=== PATIENT | male | born 1965 | race Caucasian/White ===

== ENCOUNTER 2019-12-20 06:11 | Day surgery (SDC) | payer OTHER, SELFPAY ==
[2019-12-06 13:20] VITALS: BMI 34.7
--- NOTE | 2019-12-07 10:29 | HP_ITS ---
Intake Vital Signs 12/06/19 Height 5 ft 9 in 12/06/19 Weight: 242 lb 12/06/19 BMI 35.7 12/06/19 BP 138/92 H 12/06/19 Blood Pressure Location Rt brachial 12/06/19 Position Sitting 12/06/19 Respiration 18 12/06/19 Pulse 99 12/06/19 Pulse Source Monitor 12/06/19 Temp 96.1 F L 12/06/19 Temp Source Temporal 12/06/19 Pulse Oximetry (%) 96 12/06/19 Oxygen Delivery Method room air Intake Visit Reasons: Hernia Chief Complaint: Possible hernia Retail Advertising Account Executive Required: No Is patient in pain?: No Allergies No Known Allergies Allergy (Verified 12/06/19 13:19) Medications Citalopram [Celexa] 20 mg PO DAILY 03/19/13 [History Confirmed 12/06/19] diclofenac potassium 50 mg tablet 50 mg PO BID 04/14/18 [History Confirmed 12/06/19] naproxen 500 mg tablet 500 mg PO BID PRN #20 tab 04/14/18 [Rx Confirmed 12/06/19] lisinopril 20 mg-hydrochlorothiazide 25 mg tablet 1 tab PO DAILY 12/06/19 [History Confirmed 12/06/19] PFSH Medical History Iliotibial band tendonitis of left side (Acute) Arthritis (Acute) HTN (hypertension) (Chronic) Surgical History No history of previous surgery (Acute) Family History Mother Cancer Lymphoma Social History (Updated 12/07/19 @ 10:[address] Nii Robins MD) Smoking Status: Unknown if ever smoked alcohol intake: current Alcohol type: beer HPI HPI Surgical H&P: Yes HPI: MELISSA CAROLINA, is a 54 M who presents to the office today for Evaluation for a bulge at his umbilicus. Patient states that he has had this umbilical defect for many months is been gradually increasing in nature. He has had no change in his bowel or bladder habits.He cannot recall any trauma to the area. ROS General General: No weight change, appetite, fatigue, colon cancer, breast cancer or weakness HEENT HEENT: No difficulty swallowing, eye injury, eye surgery, swollen glands or hoarseness Endo Endocrine: No thyroid disease, diabetes mellitus, thyroid cancer, Hair loss, heat intolerance or cold intolerance Skin Skin: No rash or changing moles Breast Breast: No left breast lump, right breast lump, nipple discharge, breast pain, abnormal mammogram, abnormal US or breast enlargement Musc Musculoskeletal: No back problems, arthritis, rheumatoid arthritis, gout or joint pain Cardio Cardiovascular: Yes high blood pressure; no murmur, pacemaker, heart disease, atrial fibrillation, heart attack, heart stent, palpitations, shortness of breat with exertion or chest pain Psych Psychiatric: No depression, anxiety or hearing voices Resp Respiratory: No shortness of breath, No sleep apnea, No cough, No COPD, No asthma, No emphysema, No wheezing Gastro Gastrointestinal: No abdominal pain, No nausea or vomiting, No diarrhea, No constipation, No blood in stool, No acid reflux, No hemorrhoids, No ulcers, No gallbladder problem, No black,tarry stools Jake Hematologic: No blood thinners, No blood disorders, No bleeding, No anemia, No blood clots Neuro Neurologic: No system reviewed and no additional complaints, except as docu, No as per HPI, No abnormal walking, No abnormal hearing, No abnormal movements, No abnormal speech, No behavioral changes, No burning sensations, No confusion, No seizure-like activity, No unsteadiness, No dizziness, No localized weakness, No frequent falls, No headache(s), No lack of coordination, No loss of vision, No memory loss, No numbness, No other visual disturbances, No radiating pain, No restless legs, No sensory deficit, No fainting, No tingling, No tremor(s), No weakness, No other Exam Const General: no acute distress, well developed, well hydrated Orientation: oriented to person, oriented to place, oriented to time [facility] Head: normocephalic, atraumatic Ears: external ears normal Mouth: moist mucous membranes Eyes Sclera: sclerae normal Pupils: normal by confrontation Neck Neck: no lymphadenopathy noted Neck mass: No Thyroid: thyroid normal, symmetrical Chest Chest palpation & inspection: normal inspection of the chest Breast Palpation: No nipple discharge Resp Effort & Inspection: normal respiratory effort Auscultation: clear to auscultation bilaterally Percussion: percussion normal Cardio Rate: regular rate Rhythm: regular rhythm Heart Sounds: no murmurs GI Palpation: soft, no hepatosplenomegaly, no masses, tender Rectal Exam: other Other: Reducible umbilical hernia is identified. Rectal exam deferred. Extrem General: normal to inspection, no clubbing, cyanosis or edema Assessment & Plan Problems 1. Umbilical hernia without obstruction and without gangrene K42.9 Plan My plan is to perform Umbilical hernia repair With mesh. The planned surgical procedure was discussed extensively with the patient. The risks, benefits, anticipated outcomes and possible complication were mentioned. The patient understands that all hernia repair surgery has a chance of recurrence and/or chronic post-operative pain. My staff has also explained the procedure in understandable terms and the patient was given the option to take printed material concerning the planned procedure. The patient had the opportunity to ask questions concerning the planned procedure. The patient freely consents to the planned procedure. Coding Level of Care Code Off vis,new,level 3 Diagnoses Umbilical hernia without obstruction and without gangrene K42.9 COVID (Procedure Consent) Procedure Criteria Procedure Criteria: Yes Elective The surgeon/proceduralist and patient have discussed in detail the risk of exposure to and/or potential harm posed by the COVID-19 virus with having a surgery/procedure at this time versus the risk of? delaying the surgery/procedure. It is not possible to know either the risk of delaying the surgery or procedure or chance of getting an infection with perfect accuracy, but a joint decision was made between the patient and the surgeon/proceduralist ?to proceed at this time with the scheduled surgery/procedure as indicated on the consent form. 12/07/19 1029 <Electronically signed by Nii baltazar MD> Date _ Nii Robins MD I have re-examined the patient. There are no clinical changes since date of exam.
[2019-12-11 11:17] LABS: Hematocrit 45.8 % (40-54); Mean Corp Hgb Conc 32.8 g/dL (32-36); Mean Corpuscular Hgb 31.3 pg (27.0-32.0); Mean Corpuscular Volume 95.4 fL (80-94); Mean Platelet Vol. 10.7 fl (6.2-12.0); Platelet Count 173 K/mm3 (150-450); RBC Distribution Width CV 13.2 % (11.6-14.6); RBC Distribution Width SD 46.5 fl (35.1-43.9); White Blood Count 6.9 K/mm3 (4.4-11.0)
[2019-12-11 11:42] LABS: Anion Gap 4 (5-15); BUN 29 mg/dL (7-18); BUN/Creat Ratio 24.8 RATIO (10-20); Calcium,Total 9.1 mg/dL (8.5-10.1); Chloride 105 mmol/L (98-107); Creatinine, Serum 1.17 mg/dL (0.70-1.30); EST Glomerular Filtration Rate 69 mL/min (>60); Est Glom Filt Rate - Afr Amer 83 mL/min (>60); Glucose 133 mg/dL (74-106); Potassium 4.3 mmol/L (3.5-5.1); Sodium Level 138 mmol/L (136-145)
--- NOTE | 2019-12-13 08:49 | EKG12_ITS ---
Test Reason : PRE OP Blood Pressure : / mmHG Vent. Rate : 080 BPM Atrial Rate : 080 BPM P-R Int : 192 ms QRS Dur : 084 ms QT Int : 346 ms P-R-T Axes : 031 041 035 degrees QTc Int : 399 ms Normal sinus rhythm Normal ECG Confirmed by LC BAY MD ([id number]), primer expeditor and drier ELIZABETH WHEATLEY ([id number]) on 12/14/2019 11:27:25 AM Referred By: Nii Robins Confirmed By:LC BAY MD
[2019-12-20 06:35] VITALS: BP 131/97; PULSE 90; RESP 16; TEMP 36.9; O2SAT 94; BMI 35.9
[2019-12-20] MEDS: Lactated Ringers 1,000 ML 100 ML IV (06:52)
[2019-12-20] MEDS: Cefazolin 2 GM in 0.9% Normal Saline 100 ML IV (07:23)
[2019-12-20] MEDS: BUPIVACAINE LIPOSOME/PF 20 ML VIAL OPERA.SITE (07:59)
--- NOTE | 2019-12-20 08:03 | PCM.DC.POR ---
Discharge Diet: No Restrictions - Pain medication may cause nausea. You should typically eat light foods as you take your pain medication. Discharge Activity: May Shower - with the bandage in place 1-2 days after surgery. DO NOT SHOWER WHEN YOUR PORT IS ACCESSED. Additional Activity Instructions:: May not drive, work with heavy equipment, or sign legal documents for [address] if you are no longer taking narcotic pain medications. You may drive when you are no longer taking pain medications. Additional Dressing/Incision Instructions:: Leave the bandage on for 2-3 days. When you remove the bandage, leave the steri-strips intact until they fall off. Allergies/Adverse Reactions: Allergies No Known Allergies Allergy (Verified 12/20/19 06:34) Medications to take at Discharge Citalopram [Celexa] 20 mg PO DAILY 03/19/13 diclofenac potassium 50 mg tablet 50 mg PO BID 04/14/18 lisinopril 20 mg-hydrochlorothiazide 25 mg tablet 1 tab PO DAILY 12/06/19 Oxycodone HCl/Acetaminophen [Percocet 5/325] 1 - 2 tab PO Q4H PRN PRN 6 Days #30 tab 12/20/19 The following prescriptions were given: Oxycodone HCl/Acetaminophen [Percocet 5/325] 1 - 2 tab PO Q4H PRN PRN 6 Days #30 tab PRN Reason: Pain Transmission Status: Sent to [facility] Primary Care Physician: Angelo Sinclair DO [Primary Care Provider] - Test Results: Test results from this visit will be discussed in further detail at your follow-up appointment, if applicable. Please Follow Up With: Nii Robins MD - [phone] When: Please plan to follow up in 7 days in the office.
--- NOTE | 2019-12-20 08:15 | OP.PCM_ITS ---
Problem List (1) Umbilical hernia without mention of obstruction or gangrene Status: Acute Qualifiers: Obstruction and gangrene presence: without obstruction or gangrene Qualified Code(s): K42.9 - Umbilical hernia without obstruction or gangrene Report of Operation Date of Procedure: 12/20/19 Pre-Operative Diagnosis: Umbilical hernia Post-Operative Diagnosis: Same Surgery/Procedure Performed:: Umbilical hernia repair with mesh Type of Anesthesia:: General Anesthesiologist: Flako Gould Estimated Blood Loss (mL): < 25 cc Description of Procedure: Patient brought to the operating room. Placed in the supine position. Under excellent general endotracheal ovation the abdomen was sterilely prepped and draped in usual fashion. Supraumbilical incision was made. Dissection was carried down to the fascia. Umbilical defect was removed from the umbilicus. It was placed back into its preperitoneal space. I dissected the preperitoneal space 360 degrees circumferentially approximately 2 cm underneath the fascia. This was done with both blunt dissection and electrocautery initially on the fascia. I had excellent hemostasis. I placed a small ventral X hernia patch into the wound. I sutured it to the fascia with #1 Nurolon's. I injected loca l. The umbilicus was brought back down to the fascia with a 2-0 Vicryl. Deep dermal stitches of 3-0 Vicryl then a running 4-0 Monocryl. Steri-Strips were applied sterile dressings were applied and the patient tolerated the procedure well. - Admit VTE Documentation VTE Present on Admission: No VTE Mechan Device Prophylaxis: SCD's VTE Pharm Prophylaxis ordered?: No Reason prophylaxis not ordered:: Treatment Not Indicated [id number]: 05203 Rpr umbil joyce reduc > 5 yr
[2019-12-20 08:45] VITALS: BP 131/97; BP 96/74; PULSE 102; RESP 18; TEMP 36.8; O2SAT 93
[2019-12-20 09:00] VITALS: BP 131/97; BP 95/65; PULSE 97; RESP 18; O2SAT 90
[2019-12-20 09:15] VITALS: BP 101/78; BP 131/97; PULSE 97; RESP 18; O2SAT 92
[2019-12-20] MEDS: Lactated Ringers 1,000 ML 15 ML IV (09:16)
[2019-12-20 09:22] VITALS: BP 110/75; BP 131/97; PULSE 94; RESP 18; TEMP 36.8; O2SAT 92
[2019-12-20 10:10] VITALS: BP 114/77; BP 131/97; PULSE 102; RESP 16; TEMP 36.9; O2SAT 93
== END 2019-12-20 10:10 | disposition home or self-care (01) ==
LOC: SDC 06:12 → AC 06:12
PROVIDERS: Anesthesiology; PCP Family Medicine; Referring Provider Surgery; Visit Provider Surgery
PROC: (CPT 49585; principal; 2019-12-20 07:15)
DX: K42.9 Umbilical hernia without obstruction or gangrene (principal); I10 Essential (primary) hypertension
CPT/HCPCS: 00830; 49585; 36415; 80048; 85027; 87635; 93005; C9803; J7120; C1781; J2405; U0003

== ENCOUNTER → 2022-01-10 | Outpatient (CLI) | payer OTHER, SELFPAY ==
[2022-01-10 15:31] LABS: Absolute Lymphocyte Count 2.21 X10^3/uL (0.83-4.51); Basophil# 0.07 X10^3/uL; Basophil% 0.8 % (0-1); Eosinophil# 0.23 X10^3/uL; Eosinophils% 2.7 % (0-5); Hematocrit 47.2 % (40-54); Hemoglobin 16.1 g/dL (13.0-16.5); Lymphocyte # 2.21 X10^3/ul (0.83-4.51); Lymphocyte % 26.1 % (19-41); Mean Corp Hgb Conc 34.1 g/dL (32-36); Mean Corpuscular Hgb 32.4 pg (27.0-32.0); Mean Platelet Vol. 12.4 fl (6.2-12.0); Monocyte# 0.94 X10^3/uL; Monocyte% 11.1 % (0-10); NRBC Flagged by Analyzer 0 % (0-5); Neutrophil # 4.97 X10^3/uL (2.7-7.7); Neutrophil % 58.8 % (47-70); Platelet Count 201 K/mm3 (150-450); RBC Distribution Width CV 13.2 % (11.6-14.6); Red Blood Count 4.97 M/mm3 (4.6-6.2); White Blood Count 8.5 K/mm3 (4.4-11.0)
[2022-01-10 15:39] LABS: ALB/GLOB Ratio 0.8 RATIO (0.9-2.4); AST(SGOT) 21 U/L (15-37); Alanine Aminotransfer ALT/SGPT 46 U/L (16-61); Albumin, Serum 3.3 g/dL (3.2-5.0); Alkaline Phosphatase 96 U/L (45-117); Anion Gap 7 (5-15); BUN 15 mg/dL (7-18); BUN/Creat Ratio 12.8 RATIO (10-20); Calcium,Total 9.1 mg/dL (8.5-10.1); Chloride 100 mmol/L (98-107); Cholesterol 268 mg/dL (200); Creatinine, Serum 1.17 mg/dL (0.70-1.30); EST Glomerular Filtration Rate 68 mL/min (>60); Est Glom Filt Rate - Afr Amer 82 mL/min (>60); Globulin 4.4 g/dL (2.2-4.2); Glucose 178 mg/dL (74-106); High Density Lipoprotein 36 mg/dL; PSA,Total - Annual Screen 0.75 ng/mL (0.00-4.00); Potassium 4.3 mmol/L (3.5-5.1); Protein, Total 7.7 g/dL (6.4-8.2); Sodium Level 134 mmol/L (136-145); Triglycerides 343 mg/dL; Very Low Density Lipoprotein 69 mg/dL (5-40)
[2022-01-10 15:40] LABS: Hemoglobin A1c 8.2 % (3.8-5.6)
== END | disposition home or self-care (01) ==
PROVIDERS: PCP Family Medicine; Visit Provider Family Medicine
DX: Z00.00 Encounter for general adult medical examination without abnormal findings (principal); Z12.5 Encounter for screening for malignant neoplasm of prostate; R73.9 Hyperglycemia, unspecified
CPT/HCPCS: 36415; 80053; 80061; 83036; 84153; 85025; G0103

== ENCOUNTER → 2022-03-06 | Outpatient (CLI) | payer OTHER, SELFPAY | END | disposition home or self-care (01) | PROVIDERS: PCP Family Medicine; Referring Provider Family Medicine; Visit Provider Family Medicine | DX: G47.10 Hypersomnia, unspecified (principal); I10 Essential (primary) hypertension | CPT/HCPCS: 95806 ==

== ENCOUNTER → 2022-05-08 | Outpatient (CLI) | payer OTHER, SELFPAY ==
--- NOTE | 2022-05-08 13:28 | CT_ITS ---
STUDY: LOW DOSE CT LUNG CANCER SCREENING REASON FOR EXAM: Male, 56 years old. Smoker 1/2 PPD for 30 years RADIATION DOSAGE (If Supplied By Facility): CTDIvol = ( 3.18 ) mGy, DLP = ( 115.17 ) mGycm TECHNIQUE: No contrast was administered. Low dose technique was utilized (average mAS-38 and kVp 120). 1.25 mm axial source images with a slice interval of 1.25-mm were reconstructed in lung windows. 2.5 mm axial source images with a slice interval of 2.5-mm were reconstructed in lung windows. 5.0 mm axial source images with a slice interval of 5.0-mm were reconstructed in soft tissue windows. COMPARISON: None. NODULES: No suspicious nodules are seen. Emphysema: Focal increased linear marking in the anterior aspect of the medial aspect of the left upper lobe suggestive of atelectasis and/or scarring. Mild increased linear markings in the anterior aspect of the left lower lobe suggestive of scarring. Endobronchial lesion: None Aorta: Calcified atherosclerotic plaque of the aortic arch. CORONARY ARTERIES: Coronary artery calcification is seen. Heart: Small pericardial effusion. Pulmonary artery: Unremarkable Mediastinal nodes: Small mediastinal lymph nodes. Other chest and abdominal findings: CT/Low Dose CT Lung Screening IMPRESSION: Lung-RADS category 2 - Continue annual screening with LDCT in 12 months. IMPORTANT NOTES FOR USE: ACR Lung-RADS Version 1.1 Assessment Categories Release Date: 2018 Category: Coded 0-4 bases on nodule(s) with highest degree of suspicion. Negative screen is defined as categories 1 and 2; a positive screen is defined as categories 3 and 4. Category 3 and 4A nodules that are unchanged on interval CT should be coded as category 2, and individuals returned to screening in 12 months. Category 4X: Category 3 or 4 nodules with additional imaging findings that increase the suspicion of lung cancer, such as spiculation, GGN that doubles in size in 1 year, enlarged lymph notes, etc. Category Modifiers: S (significant finding unrelated to lung cancer) Electronically Signed: Teto Sow MD at 14:56 EST ,
== END | disposition home or self-care (01) ==
LOC: CT 13:27
PROVIDERS: PCP Family Medicine; Referring Provider Nurse Practitioner Acute Care; Visit Provider Nurse Practitioner Acute Care
DX: F17.210 Nicotine dependence, cigarettes, uncomplicated (principal)
CPT/HCPCS: 71271

== ENCOUNTER 2022-09-09 14:00 | Outpatient (RCR) | payer OTHER, SELFPAY ==
--- NOTE | 2022-08-14 15:12 | HP.PTEVAL ---
Patient's Visit Information MELISSA CAROLINA is a 56 year old M referred to Physical Therapy by Dr. Betito Kang MD with a diagnosis of L TKA. Date of Evaluation: 08/14/22 Physical Therapist: Arthur Nicholas, PT, ATC - Visit Plan Frequency: 2-3x /Week Duration: 4-6 Weeks Plan: L knee stretching and strengthening, core stab ex's, balance and proprio, PROM/mobs, bike, and HEP - Subjective DOS: 07/15/22. Pt notes he had a L TKA performed at that time after having L knee pain for a chronic time period. Pt reports he feels much better now since having the surgery. Pt notes he had sharp pain prior to Rx, but reports that pain is all gone. Pt deneis any tingling or numbness at this time. Pt reports no sleep difficulty at this time secondary to pain. Pt reports he is stiff after sitting for a long period of time, as well as when he wakes up in the morning. 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 Pt reports he hope to return to work soon. Pt reports a few steps into his house which he negotiates one step at a time. Pt reports his R knee will need replaced in the near future and that limits him more than the L knee at this time. Pt reports L knee pain ranges from 0-2/10. Pt reports he stayed in the hospital for one day after surgery, then had home health afterwards. - Pain L knee Pain Intensity (Out of 10): 0 Pain Intensity Range: 2 - Objective Neuro: B LE's are WNL to light touch. B patellar reflex= 2/3. Girth: B knees 40 cm. ROM: L knee 0-15-125; R knee 0-6-134. MMT: L knee flex= 29, ext= 9; R knee flex= 34, ext= 53. TU.94 - Balance/Special Test Scores WOMAC Total Score: 30 WOMAC Percentatge: 68.7500 - Goals Goal 1:: Decrease L knee pain x 50% to aid with sleep Goal Time Frame: 4-6 Weeks Goal 2:: Increase L knee ROM x 10 degrees to aid with RTW without limitation Goal Time Frame: 4-6 Weeks Goal 3:: Increase L knee strength x 20#F to aid with stair negotiation Goal Time Frame: 4-6 Weeks Goal 4:: I with HEP Goal Time Frame: 4-6 Weeks - Rehabilitation Potential Physical Therapy Diagnosis: Pt has L knee pain, weakness, and limited ROM seconday to L TKA Rehabilitation Potential: Good - Anticipated Interventions Patient/Client Instruction: Educate patient on: Condition, Plan of Care For the Purpose of:: To improve self management Therapeutic Exercise to Include: Strength training, Endurance training, Balance training, Gait and locomotor training, Passive ROM, Active ROM, Dynamic Lumbar Stabilization For the Purpose of:: To decrease pain, To increase ROM, To improve muscle performance and motor function Cryotherapy (ice pack, ice massage): Yes For the Purpose of:: To decrease pain Thank you for the opportunity to evaluate your patient. For Medicare and Medicare HMO plans, please review the plan of care and approve it. It will need to be FAXED BACK to us at [phone] for Medicare purposes. For Medicare only, by signing this I certify the plan of care. Please let me know if there are questions or concerns regarding this plan of care. Physician Signature: Date:
--- NOTE | 2022-12-11 13:50 | HP.PT.NRP ---
Patient Information Patient Information: MELISSA CAROLINA was seen in my office for initial evaluation on 08/14/22. The following Plan of Care was established for this patient: POC Established Initial Frequency: 2-3x /Week Initial Duration: 4-6 Weeks Anticipated Interventions Patient/Client Instruction: Educate patient on: Condition and Plan of Care For the Purpose of:: To improve self management Therapeutic Exercise to Include: Strength training, Endurance training, Balance training, Gait and locomotor training, Passive ROM, Active ROM and Dynamic Lumbar Stabilization For the Purpose of:: To decrease pain, To increase ROM and To improve muscle performance and motor function Cryotherapy (ice pack, ice massage): Yes For the Purpose of:: To decrease pain Last Seen Last Seen: This patient was last seen in our office . Pertinent comments regarding their Physical therapy will appear below: Pt was treated for 9 PT visits for L knee pain through the date of 09/09/22. Pt has not returned through todays date and is discontinued at this time. At this point I will be discontinuing this patient from physical therapy. I would be happy to see this patient again in the future if found appropriate by the physician. Thank you! Arthur Nicholas, PT, ATC Balance/Gait/Functional tests Balance/Special Test Scores WOMAC Total Score: 30 WOMAC Percentage: 68.7500
== END 2022-09-09 19:00 | disposition home or self-care (01) ==
LOC: PT 14:00
PROVIDERS: PCP Family Medicine; Referring Provider Orthopaedic Surgery; Visit Provider Orthopaedic Surgery
DX: M17.12 Unilateral primary osteoarthritis, left knee (principal)
CPT/HCPCS: 97110; 97161

== ENCOUNTER → 2023-02-17 | Outpatient (CLI) | payer OTHER, SELFPAY ==
[2023-02-17 18:15] LABS: Microalbumin:Creatinine Ratio 15.5 mg/g CRE (<30 mg/g CRE)
[2023-02-17 18:25] LABS: ALB/GLOB Ratio 0.9 RATIO (0.9-2.4); AST(SGOT) 22 U/L (15-37); Alanine Aminotransfer ALT/SGPT 48 U/L (16-61); Albumin, Serum 3.7 g/dL (3.2-5.0); Alkaline Phosphatase 104 U/L (45-117); Anion Gap 8 (5-15); BUN 24 mg/dL (7-18); BUN/Creat Ratio 22.2 RATIO (10-20); Calcium,Total 8.8 mg/dL (8.5-10.1); Chloride 99 mmol/L (98-107); Cholesterol 139 mg/dL (200); Creatinine, Serum 1.08 mg/dL (0.70-1.30); EST Glomerular Filtration Rate 74 mL/min (>60); Est Glom Filt Rate - Afr Amer 90 mL/min (>60); Globulin 4.3 g/dL (2.2-4.2); Glucose 122 mg/dL (74-106); High Density Lipoprotein 39 mg/dL; PSA,Total - Annual Screen 0.81 ng/mL (0.00-4.00); Potassium 3.9 mmol/L (3.5-5.1); Sodium Level 134 mmol/L (136-145); Triglycerides 175 mg/dL; Very Low Density Lipoprotein 35 mg/dL (5-40)
== END | disposition home or self-care (01) ==
LOC: BFHLAB 14:56
PROVIDERS: PCP Family Medicine; Visit Provider Family Medicine
DX: Z00.00 Encounter for general adult medical examination without abnormal findings (principal); E11.9 Type 2 diabetes mellitus without complications; Z12.5 Encounter for screening for malignant neoplasm of prostate
CPT/HCPCS: 36415; 80053; 80061; 82043; 82570; 83036; 84153; G0103

== ENCOUNTER 2024-01-21 10:00 | Outpatient (RCR) | payer OTHER, SELFPAY ==
--- NOTE | 2023-12-17 11:51 | HP.PTEVAL ---
Patient's Visit Information Visit Information Visit Information: MELISSA CAROLINA is a 58 year old M referred to Physical Therapy by BASIL Baptiste with a diagnosis of R TKA DOS: 11/24/23. Date of Evaluation: 12/17/23 Physical Therapist: Cristopher Castañeda DPT Visit Plan Frequency: 3x /Week Duration: 5 weeks Plan: R TKA DOS: 11/24/23 1) knee extension ROM progress, maintain knee flexion. B HS stretching 2) quad/glute/HS strengthening 3) scar massage as need, IASTIM (not much adherence noted) 3) functional strengthening 4) gait progression working on mechanics progressing stair negotiation. May use ice/vaso if needed for edema control. Subjective Subjective: Pt. is here today for her initial evaluation with diagnosis of R TKA DOS 11/24/23. Pt. reports overall doing well. He had home health PT for the last 2 weeks. He reports overall doing well, no N/T, no calf pain, no chest pain or blurred vision. Pt. arrives without use of AD. He reports haivng 4/10 pain in R knee today. He is still having some issues with sleeping, but is still able to sleep. 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 Pt. is off until Feb 14. Pt. reports being compliant with all of his HEp from . He did have is L knee replaced last year with good results as well. Pt. is hopeful to improve his strength and walk better in order to get back to work, play golf and complete all activities around his home without issues. Pain R knee: Pain Intensity (Out of 10): 4 Pain Intensity Range: 1 and 5 Objective Objective: POSTURE: Pt. has wide EVELYN in stance, but equal wt. shift noted. Pt. has good knee positioning no marked varus/valgus and good knee extension as well. PALPATION: Pt. great healing incision. No signs of infection or DVT noted. NEURO: Normal sensation and normal achilles DTR. Pt. is able to rise on heels and toes without issues. ROM: R knee: PROM 0-127deg, AROM 0-4-125deg. Pt. has tightness in B HS. MMT: RLE: knee: ext 14.5#, flexion 27.7#; hip: flexion 40#, abd 13.9#, SLR with slight 10deg lag. LLE: knee: ext 45.5#, flexion 41.8#, hip: flexion 45.5#, abd 23.3#. 30sec sit to stand rep test: 11 with occasional use of UEs. TU.8sec without AD. GAIT: pt. ambulates without AD. He has good TKE during stance phase, lacks knee flexion during swing. Wide EVELYN noted. STAIRS: Pt. able to complete with reciprocal pattern, but heavy use of railings. Similar with descending. Balance/Special Test Scores Lower Extremity Functional Score: 36 Goals Goal 1:: LTG: Pt. to be I with HEP for knee extension ROM and progressive strengthening. Goal Time Frame: 4-6 Weeks Goal 2:: STG: pt. to have full R knee extension allowing for increased stability with gait and functional mobility. Goal Time Frame: 2-4 Weeks Goal 3:: LTG: pt. to have symmetrical strength between BLEs without increase in symptoms. Goal Time Frame: 4-6 Weeks Goal 4:: LTG: Pt. to complete 30sec sit to stand rep test with at least 17 reps Goal 5:: LTG: Pt. to complete TUG without AD with time less than 10seconds. Goal Time Frame: 4-6 Weeks Goal 6:: LTG: Pt. to complete negotiation of 1 flight of stairs with 1 HR with reciprocal pattern and less than 2/10 pain in R knee. Goal Time Frame: 4-6 Weeks Rehabilitation Potential Physical Therapy Diagnosis: Pt. has signs and symptoms consistent with R TKA DOS: 11/24/23. Pt. has good knee flexion, but some tightness into extension. He also has marked R LE weakness and difficulty with stairs and walking. he would benefit from PT to address the above limitations progressing back to all work and recreational activities without limitations. Rehabilitation Potential: Excellent Anticipated Interventions Patient/Client Instruction: Educate patient on: Condition, Plan of Care, Risk Factors and Benefits of Fitness Program For the Purpose of:: To foster healthy habits, To improve decision making, To facilitate caregiver knowledge, To improve self management, To prevent re-injury and To improve ability to perform tasks related to life management Therapeutic Exercise to Include: Strength training, Endurance training, Balance training, Coordination, Postural training, Flexibilty training, Gait and locomotor training, Passive ROM and Active ROM For the Purpose of:: To decrease pain, To increase ROM, To improve nutrient delivery to tissue, To increase oxygenation perfusion, To improve muscle performance and motor function, To improve ability to perform ADL's, To increase tolerance to activity/condition/position, To improve gait and locomotor functions, To improve health of tissue, To decrease soft tissue restriction and To increase flexibility/ROM Manual Therapy Techniques to Include: Mobilization and Soft tissue mobilization Comment: IASTIM For the Purpose of:: To decrease pain, To increase ROM, To improve nutrient delivery to tissue, To increase oxygenation perfusion and To improve muscle performance and motor function Text: Thank you for the opportunity to evaluate your patient. For Medicare and Medicare HMO plans, please review the plan of care and approve it. It will need to be FAXED BACK to us at [phone] for Medicare purposes. For Medicare only, by signing this I certify the plan of care. Please let me know if there are questions or concerns regarding this plan of care. Physician Signature: Date:
--- NOTE | 2024-01-21 12:04 | HP.PTDCSUM_ITS ---
Discharge Summary D/C summary: It has been my pleasure to treat MELISSA CAROLINA referred by BASIL Baptiste, with the diagnosis of R TKA DOS: 11/24/23 for a total of 10 visit(s). Discharge Date: 01/21/24 Please see the following information for a summary of their discharge status. Subjective Subjective: Pt. reports overall doing well. No major issues. Pt. reports being 95% better overall. Pt. is pleased and reports being ready to be done with PT at this point in time. Pain R knee: Pain Intensity (Out of 10): 0 Overall Improvement % Improvement: 95 Objective Objective/Function: ROM: 0-0-130deg. R knee. tightness in HS bilaterally. MMT: R knee: ext 34.1#, flexion 25.9# L knee: ext 39.9#, flexion 27.7# STAIRS: Pt. is able to complete with reciprocal pattern with 1 HR without issues. Pt. does have some edema at pre patellar region, seems to be more like bursitis rather than knee edema. Pt. is overall doing well. Pt. will be DC from PT at this point in time. Goals Goal 1:: LTG: Pt. to be I with HEP for knee extension ROM and progressive strengthening. Goal Progress: Goal Met Goal 2:: STG: pt. to have full R knee extension allowing for increased stability with gait and functional mobility. Goal Progress: Goal Met Goal 3:: LTG: pt. to have symmetrical strength between BLEs without increase in symptoms. Goal Progress: Goal Met Goal 4:: LTG: Pt. to complete 30sec sit to stand rep test with at least 17 reps Goal Progress: Progressing Goal 5:: LTG: Pt. to complete TUG without AD with time less than 10seconds. Goal Progress: Goal Met Goal 6:: LTG: Pt. to complete negotiation of 1 flight of stairs with 1 HR with reciprocal pattern and less than 2/10 pain in R knee. Goal Progress: Goal Met Plan Plan: Pt.t o be DC from PT at this point in time. D/C Information d/c sentence: If there are questions or concerns regarding this patient's physical therapy, rolando seaman feel free to call me at [phone]. Thank you for the referral of this patient. Sincerely, Cristopher L Sipos, DPT Balance/Gait/Functional tests Balance/Special Test Scores Lower Extremity Functional Score: 69 TUG Test Time Seconds: 7.7 Tug Test: <10 sec.=free mobile 30 Second Chair Rise Test Seconds: 15 Improvement % Improvement: 95
== END 2024-01-21 19:00 | disposition home or self-care (01) ==
LOC: PT 10:00
PROVIDERS: PCP Family Medicine; Visit Provider Physician Assistant
DX: M17.11 Unilateral primary osteoarthritis, right knee (principal)
CPT/HCPCS: 97110; 97140; 97161; 97530

== ENCOUNTER → 2024-02-23 | Outpatient (CLI) | payer OTHER, SELFPAY ==
[2024-02-23 15:17] LABS: Absolute Lymphocyte Count 2.31 X10^3/uL (0.83-4.51); Absolute Neutrophil Count 5.5 X10^3/uL (2.0-7.7); Basophil# 0.06 X10^3/uL; Basophil% 0.7 % (0-1); Eosinophil# 0.12 X10^3/uL; Eosinophils% 1.3 % (0-5); Hematocrit 46.9 % (40-54); Hemoglobin 15.2 g/dL (13.0-16.5); Lymphocyte # 2.31 X10^3/ul (0.83-4.51); Lymphocyte % 25.2 % (19-41); Mean Corp Hgb Conc 32.4 g/dL (32-36); Mean Corpuscular Hgb 29.9 pg (27.0-32.0); Mean Corpuscular Volume 92.3 fL (80-94); Mean Platelet Vol. 11.3 fl (6.2-12.0); Monocyte# 1.11 X10^3/uL; Monocyte% 12.1 % (0-10); NRBC Flagged by Analyzer 0 % (0-5); Neutrophil # 5.53 X10^3/uL (2.7-7.7); Neutrophil % 60.3 % (47-70); Platelet Count 200 K/mm3 (150-450); RBC Distribution Width CV 13.5 % (11.6-14.6); RBC Distribution Width SD 46.1 fl (35.1-43.9); Red Blood Count 5.08 M/mm3 (4.6-6.2); White Blood Count 9.2 K/mm3 (4.4-11.0)
[2024-02-23 15:45] LABS: ALB/GLOB Ratio 0.8 RATIO (0.9-2.4); AST(SGOT) 31 U/L (15-37); Alanine Aminotransfer ALT/SGPT 49 U/L (16-61); Albumin, Serum 3.6 g/dL (3.2-5.0); Alkaline Phosphatase 102 U/L (45-117); Anion Gap 7 (5-15); BUN 15 mg/dL (7-18); Calcium,Total 9.9 mg/dL (8.5-10.1); Chloride 101 mmol/L (98-107); Cholesterol 149 mg/dL (200); Creatinine, Serum 0.94 mg/dL (0.70-1.30); EST Glomerular Filtration Rate 87 mL/min (>60); Est Glom Filt Rate - Afr Amer 106 mL/min (>60); Globulin 4.4 g/dL (2.2-4.2); Glucose 124 mg/dL (74-106); High Density Lipoprotein 47 mg/dL; PSA,Total - Annual Screen 0.81 ng/mL (0.00-4.00); Potassium 4.2 mmol/L (3.5-5.1); Sodium Level 137 mmol/L (136-145); Triglycerides 194 mg/dL; Very Low Density Lipoprotein 39 mg/dL (5-40)
[2024-02-23 16:20] LABS: Microalbumin:Creatinine Ratio 443.7 mg/g CRE (<30 mg/g CRE)
== END | disposition home or self-care (01) ==
LOC: MTLAB 12:56
PROVIDERS: PCP Family Medicine; Referring Provider Family Medicine; Visit Provider Family Medicine
DX: Z00.00 Encounter for general adult medical examination without abnormal findings (principal); E11.9 Type 2 diabetes mellitus without complications; Z12.5 Encounter for screening for malignant neoplasm of prostate
CPT/HCPCS: 36415; 80053; 80061; 82043; 82570; 83036; 84153; 85025; G0103

== ENCOUNTER → 2024-10-11 | Outpatient (CLI) | payer OTHER, SELFPAY ==
--- NOTE | 2024-10-11 15:02 | ECHOD_ITS ---
Reason For Study Reason For Study: NEW AFIB Procedure This was a 2D Doppler, Color Flow transthoracic echocardiogram. Exam performed in department. Left Ventricle Normal LV size. Moderate concentric left ventricular hypertrophy. Left ventricular systolic function is normal. The left ventricular ejection fraction is 55 %. No regional wall motion abnormalities noted. Right Ventricle Normal RV size. Normal systolic function. Atria Normal left atrium. Normal right atrium. Mitral Valve Normal mitral valve. Tricuspid Valve Normal tricuspid valve. Moderate (2+) tricuspid valve insufficiency. Pulmonary artery systolic pressure is 57 mmHg. Aortic Valve The aortic valve is not well visualized. Pulmonic Valve The pulmonic valve is not well visualized. Great Vessels Mildly dilated aortic root. The pulmonary artery is normal size. Inferior vena cava collapse with sniff. Pericardium/Pleural Moderate (1.0-2.0 cm) pericardial effusion. There are no echocardiographic indications of cardiac tamponade. Localized effusion. MMode/2D Measurements & Calculations LVIDd: 4.7 cm IVSd: 1.5 cm Ao root diam: 3.8 cm LVIDs: 3.6 cm LVPWd: 1.2 cm FS: 23.8 % LAV(MOD-bp): 51.9 ml LVAd ap4: 23.2 cm2 SV(MOD-sp4): 29.0 ml LAV(MOD-bp) Indexed: 22.1 ml/m2 LVLd ap4: 8.1 cm SI(MOD-sp4): 12.4 ml/m2 LAV(MOD-sp2): 65.0 ml EDV(MOD-sp4): 58.6 ml LAV(MOD-sp4): 39.1 ml EDV(sp4-el): 56.7 ml LVAs ap4: 15.6 cm2 LVLs ap4: 7.2 cm ESV(MOD-sp4): 29.6 ml ESV(sp4-el): 28.7 ml EF(MOD-sp4): 49.5 % EF(sp4-el): 49.4 % SV(sp4-el): 28.0 ml LA A4 area: 15.7 cm2 LA dimension(2D): 4.4 cm RA A4 area: 20.7 cm2 Doppler Measurements & Calculations Ao V2 max: 222.3 cm/sec LV V1 max: 122.9 cm/sec TR max flor: 358.2 cm/sec Ao max P.8 mmHg LV V1 max P.2 mmHg TR max P.3 mmHg Ao V2 mean: 163.4 cm/sec LV V1 mean P.8 mmHg Ao mean P.0 mmHg LV V1 mean: 91.0 cm/sec Ao V2 VTI: 37.2 cm LV V1 VTI: 19.9 cm AV (velocity ratio): 0.53 ECHO/Echo Complete Interpretation Summary Normal LV size. Left ventricular systolic function is normal. Moderate concentric left ventricular hypertrophy. The left ventricular ejection fraction is 55 %. Moderate (1.0-2.0 cm) pericardial effusion. Localized effusion. Ordering Physician: Angelo Sinclair Referring Physician: Angelo Sinclair Performed By: Nilda Arvizu RCS
--- OUTSIDE RECORDS SUMMARY | 2024-10-11 23:06 | XMS RPT_ITS | CCD ---
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 Angelo Sinclair Primary Care Provider [phone] Dr. Angelo Sinclair Referring Provider [phone] [place] [employer]SH[employer] MANAGER, RADHA Avila Attending Provider [phone] Dr. Angelo Sinclair DO Primary Care Provider Dr. Angelo Sinclair DO Referring Provider [phone] Dr. Selam Mark MD Attending Provider [phone] Selam Mark Attending Unavailable Angelo Sinclair Referring Unavailable Angelo Sinclair Primary Care Unavailable Tim Lopez Attending Unavailable Angelo Sinclair Primary Care Unavailable Angelo Sinclair Attending Unavailable Angelo Sinclair Referring Unavailable Angelo Sinclair Primary Care Unavailable Medications Current Medications Medication Drug Class(es) Dates Sig (Normalized) Sig (Original) apixaban 5 mg oral tablet (1 source) Factor Xa Inhibitor Start: 09-09-2024 take 1 tablet by mouth twice daily Apixaban (Eliquis) 5 mg tablet Active 5 mg PO TWICE A DAY September 09, 2024 12:00am citalopram 20 mg oral tablet (5 sources) Serotonin Reuptake Inhibitor Start: 03-19-2013 take 1 tablet by mouth once daily Citalopram 20 MG tablet Active 20 mg PO DAILY March 19, 2013 1:00am 24 hr dilTIAZem hydrochloride 240 mg extended release oral capsule (1 source) Calcium Channel Sanjay Start: 09-09-2024 take 1 capsule by mouth once daily in the morning, then take 1 capsule by mouth every twenty-four hours Diltiazem Hcl (Tiadylt Er) 240 mg capsule,extende d release 24 hr Active 240 mg PO EVERY MORNING September 09, 2024 12:00am hydroCHLOROthiazide 25 mg / lisinopril 20 mg oral tablet (6 sources) Thiazide Diuretic, Angiotensin Converting Enzyme Inhibitor Start: 12-06-2019 End: 09-23-2024 Lisinopril-Hydr ochlorothiazide 20-25 mg tablet Active 0.5 {tbl} PO DAILY September 23, 2024 10:34am htn Start: 12-06-2019 take 1 tablet by sam th once daily Lisinopril-Hydrochlorothiazide Active 1 TABLET PO DAILY December 05, 2019 11:00pm metFORMIN hydrochloride 1000 mg oral tablet (1 source) Biguanide Start: 09-09-2024 take 1 tablet by mouth twice daily Metformin 1,000 mg tablet Active 1000 mg PO TWICE A DAY September 09, 2024 12:00am rosuvastatin 20 mg oral capsule (1 source) HMG-CoA Reductase Inhibitor Start: 09-09-2024 Rosuvastatin 20 mg tablet Active mg PO September 09, 2024 12:00am Completed/Discontinued Medications Medication Drug Class(es) Dates Sig (Normalized) Sig (Original) acetaminophen 325 mg / oxyCODONE hydrochloride 5 mg oral tablet (5 sources) Opioid Agonist Start: 12-20-2019 End: 12-26-2019 Oxycodone-Acetamino phen 1 TABLET tablet Discontinued 1 - 2 {tbl} PO EVERY 4 HOURS NEEDED as needed for Pain 13 09December 20, 2019 December 25, 2019 12:00am December 26, 2019 12:03am Umbilical hernia Umbilical hernia without obstruction or gangrene Start: 12-20-2019 End: 12-26-2019 take 1 tablet by mouth every four hours as needed Oxycodone-Acetaminophen Discontinued 1 - 2 TABLET PO EVERY 4 HOURS NEEDED 13 09December 20, 2019 December 25, 2019 11:03pm aspirin 81 mg delayed release oral tablet (1 source) Platelet Aggregation Inhibitor, Nonsteroidal Anti-inflammatory Drug Start: 09-09-2024 End: 09-23-2024 Aspirin (Adult Low Dose Aspirin) 81 mg tablet,delayed release (DR/EC) Discontinued 81 mg PO daily September 09, 2024 12:00am September 23, 2024 10:59am clindamycin 300 mg oral capsule (5 sources) Lincosamide Antibacterial Start: 03-19-2013 End: 04-14-2018 take 1 capsule by mouth every six hours Clindamycin Hcl 300 MG capsule Discontinued 300 mg PO EVERY 6 HOURS 30 0 March 19, 2013 1:00am April 14, 2018 2:20pm diclofenac potassium 50 mg oral tablet (5 sources) Nonsteroidal Anti-inflammatory Drug Start: 04-14-2018 End: 09-09-2024 take 1 tablet by mouth twice daily Diclofenac Potassium 50 mg tablet Discontinued 50 mg PO TWICE A DAY April 14, 2018 1:00am September 09, 2024 10:00am arthritis fluconazole 50 mg oral tablet (5 sources) Azole Antifungal Start: 04-14-2018 End: 04-14-2018 take 1 tablet by mouth once daily Fluconazole (Diflucan) 50 mg tablet Discontinued 50 mg PO DAILY April 14, 2018 1:00am April 14, 2018 2:22pm hydroCHLOROthiazide 12.5 mg / telmisartan 80 mg oral tablet (5 sources) Thiazide Diuretic, Angiotensin 2 Receptor Sanjay Start: 03-19-2013 End: 12-06-2019 Telmisartan-[place] chlorothiazid 1 EACH tablet Discontinued 1 NMA PO DAILY March 19, 2013 1:00am December 06, 2019 1:20pm Start: 03-19-2013 End: 12-06-2019 Telmisartan-Hydrochlorothiaz id Discontinued 1 EACH PO DAILY March 19, 2013 12:00am December 06, 2019 12:20pm methylPREDNISolone 4 mg oral tablet (5 sources) Corticosteroid Start: 04-14-2018 End: 04-19-2018 take 1 tablet by mouth once Methylprednisolone (Medrol (Lukas)) 4 mg tablets,dose pack Discontinued 4 mg PO per package directions 21 5 0 April 14, 2018 1:00am April 18, 2018 1:00am April 19, 2018 1:09am Problems Problem Classification Problem Date Documented Da te Episodic/Chronic Abdominal hernia (5 sources) Umbilical hernia; Translations: [Umbilical hernia without obstruction or gangrene] 12-20-2019 Episodic Cardiac dysrhythmias (4 sources) Atrial flutter; Translations: [Unspecified atrial flutter] Onset: 09-23-2024 09-23-2024 Chronic Chronic obstructive pulmonary disease and bronchiectasis (2 sources) Chronic obstructive lung disease; Translations: [Chronic obstructive pulmonary disease, unspecified] 09-09-2024 Chronic Coronary atherosclerosis and other heart disease (3 sources) Coronary atherosclerosis; Translations: [Atherosclerotic heart disease of [place] coronary artery without angina pectoris] Onset: 09-23-2024 09-09-2024 Chronic Diabetes mellitus without complication (2 sources) Diabetes mellitus; Translations: [Type 2 diabetes mellitus without complications] 09-23-2024 Chronic Disorders of lipid metabolism (3 sources) Dyslipidemia; Translations: [Hyperlipidemia, unspecified] 09-23-2024 Chronic Essential hypertension (3 sources) Essential hypertension; Translations: [Essential (primary) hypertension] Onset: 09-23-2024 09-09-2024 Chronic Other connective tissue disease (5 sources) Tendinitis; Translations: [Iliotibial band syndrome, left leg] 12-06-2019 Episodic Other lower respiratory disease (2 sources) Dyspnea on exertion; Translations: [Other forms of dyspnea] 09-23-2024 Episodic Other nutritional; endocrine; and metabolic disorders (3 sources) Body mass index 30+ - obesity; Translations: [Body mass index (BMI) 38.0-38.9, adult] 04-10-2022 Chronic Other nutritional; endocrine; and metabolic disorders (1 source) Body mass index (BMI) 38.0-38.9, adult; Translations: [Body Mass Index 38.0-38.9, adult] 04-10-2022 Chronic Other nutritional; endocrine; and metabolic disorders (2 sources) Obesity; Translations: [Obesity, unspecified] 09-23-2024 Chronic Residual codes; unclassified (4 sources) Obstructive sleep apnea syndrome; Translations: [Obstructive sleep apnea (adult) (pediatric)] 04-10-2022 Chronic Comment on above: AHI noted to be 15.9 Residual codes; unclassified (2 sources) Obstructive sleep apnea (adult) (pediatric); Translations: [Obstructive sleep apnea (adult)(pediatric) ] Onset: 09-23-2024 04-10-2022 Chronic Substance-related disorders (4 sources) Cigarette smoker ; Translations: [Nicotine dependence, cigarettes, uncomplicated] 04-10-2022 Chronic Comment on above: current 1/2 PPD Results Test Name Value Interpretation Reference Range Facility Cardiology Visit Reporton Cardiology Visit Report [facility] [address] [place] [address] OFFICE VISIT Date of Service: 09/23/24 MR#: [id number] Acct: [id number] Name: MELISSA CAROLINA Rep #: [id number] : 1965 Provider: Dr. Selam Mark MD Age/Sex: 58/M Location[place] [facility] [place] Status: Signed HPI HPI History of Present Illness Details: This gentleman has a past medical history significant for COPD, nicotine dependence, obesity and hypertension. Also history of diabetes mellitus and dyslipidemia. He recently presented to his PCPs office for complaints of shortness of breath with exertion. He has had an EKG done. It showed atrial flutter with rapid ventricular response. Subsequently he was started on diltiazem and apixaban. He is here to establish cardiac care with us. Patient denies any previous history of heart disease. Denies any chest pains either at rest or with exertion. His shortness of breath with exertion has improved since starting on diltiazem but not completely resolved. Denies orthopnea or PND. No ankle edema. Per patient, he has never been checked for sleep apnea but thinks that he may have it. Denies any palpitations. No lightheadedness or dizziness. No syncope or presyncope. No history of bleeding disorders. No history of CVA or TIA. No history of frequent falls. Intake Vital Signs 04/10/22 08:23 09/23/24 10:38 Height 5 ft 9 in 5 ft 9 in Weight: 264 lb BMI 38.9 BP 105/74 Blood Pressure Location Lt brachial Position Sitting Respiration 18 Pulse 71 Pulse Source Monitor Intake Visit Reasons: Atrial fibrillation Allergies No Known Allergies Allergy (Verified 09/09/24 09:54) Medications ???Medication ???Instructions ???Recorded ???Confirmed ???Type citalopram 20 mg tablet 20 mg PO DAILY 03/19/13 09/23/24 H istory apixaban 5 mg tablet (Eliquis) 5 mg PO BID 09/09/24 09/23/24 Hist ory diltiazem HCl 240 mg capsule,24 240 mg PO QAM 09/09/24 09/23/24 Hi story hr,extended release (Tiadylt ER) metformin 1,000 mg tablet 1,000 mg PO BID 09/09/24 09/23/24 History rosuvastatin 20 mg tablet mg PO 09/09/24 09/23/24 History lisinopril 20 0.5 tab PO DAILY htn 09/23/2409/14 History mg-hydrochlorothiazi de 25 mg tablet [facility] Medical History COPD (chronic obstructive pulmonary disease) Atrial flutter Emphysema lung Coronary atherosclerosis Hypertriglyceridemia Essential hypertension Type 2 diabetes mellitus without complication Iliotibial band tendonitis of left side Arthritis Surgical History History of bilateral knee replacement History of umbilical hernia repair ( 2019) Family History Mother Cancer Lymphoma Social History Smoking Status: Current every day smoker alcohol intake: current Alcohol type: beer substance use type: does not use ROS Const Const: Negative for fatigue or weakness Eyes Eyes: Negative for change in vision ENT ENT: Negative for dizziness or balance problems Cardio Chest Pain: No Palpitations: No Edema: None Resp Respiratory: Positive for SOB with activity; Negative for SOB at rest or SOB orthopnea SOB lying down GI GI: Negative nausea or heartburn Musc Musc: Negative for balance problems Neuro Neuro: Negative for dizziness, lightheadedness, near syncope, syncope or weakness Endo Endo: Negative for fatigue Cardiology Exam Exam Narrative Comfortable. No apparent distress. Obese. Neck pain examination is difficult because of body habitus. Heart sounds 1 and 2 noted. 2/6 systolic murmur at base. Chest clear to auscultation bilaterally. Alert oriented x 3. No ankle edema. Supplemental Info Supplemental Information Labs: LDL Cholesterol 63 mg/dL (0-130) HDL Cholesterol 47 mg/dL (40-) Cholesterol 149 mg/dL (200) Triglycerides 194 mg/dL (-199) Diagnostics: Electrocardiogram Pulmonary: No Data to Display Past Visits: Cardiology Visit 09/23/24 Assessment and Plan Assessment and Plan (1) Atrial flutter: Status: Chronic Plan: ECG done in the office today shows atrial flutter with controlled ventricular response. Continue diltiazem. Continue apixaban. Risks benefits of anticoagulation discussed with the patient. He understand these and wishes to continue. His CHADS2???VASc score is 2. Check echocardiogram. Check Lexiscan stress Myoview. (2) Dyspnea on exertion: Status: Chronic Plan: Obesity. Also history of COPD. However will check echocardiogram and also check Lexiscan stress Myoview to rule out myocardial ischemia. (3) Coronary atherosclerosi (more content not included)... Normal [facility] CBC W/Diff, Automatedon 12-0 -2023 Absolute Lymph 2.31 X10 3/uL Normal 0.83-4.51 [facility] Comment on above: Performed By: #### L 501.9910, L500.4050, L502.0250, L100.0100, L500.4100, L501.9985 #### [facility] [address] [place], [address] Absolute Neut 5.5 X10 3/uL Normal 2.0-7.7 [facility] Comment on above: Performed By: #### L 501.9910, L500.4050, L502.0250, L100.0100, L500.4100, L501.9985 #### [facility] [address] [place], [address] Basophils/100 WBC (Bld) 0.7 % Normal 0-[address] [facility] Comment on above: Performed By: #### L 501.9910, L500.4050, L502.0250, L100.0100, L500.4100, L501.9985 #### [facility] [address] [place], [address] Eosinophils/100 WBC (Bld) 1.3 % Normal 0-5 [facility] Comment on above: Performed By: #### L 501.9910, L500.4050, L502.0250, L100.0100, L500.4100, L501.9985 #### [facility] [address] [place], [address] Erythrocyte distribution width (RBC) [Ratio] 13.5 % Normal 11.6-14.6 [facility] Comment on above: Performed By: #### L 501.9910, L500.4050, L502.0250, L100.0100, L500.4100, L501.9985 #### [facility] [address] [place], [address] Hematocrit (Bld) [Volume fraction] 46.9 % Normal 40-54 [facility] Comment on above: Performed By: #### L 501.9910, L500.4050, L502.0250, L100.0100, L500.4100, L501.9985 #### [facility] [address] [place], [address] Hemoglobin (Bld) [Mass/Vol] 15.2 g/dL Normal 13.0-16.5 [facility] Comment on above: Performed By: #### L 501.9910, L500.4050, L502.0250, L100.0100, L500.4100, L501.9985 #### [facility] [address] [place], [address] IG% 0.400 Normal 0.0-0.9 [facility] Comment on above: Result Comment: IG% - Immature Granulocytes (promyelocytes, myelocytes and metamyelocytes) > 1% indicates that a LEFT SHIFT is Present. Performed By: #### L 501.9910, L500.4050, L502.0250, L100.0100, L500.4100, L501.9985 #### [facility] [address] [place], [address] Lymphocytes/100 WBC (Bld) 25.2 % Normal 19-41 [facility] Comment on above: Performed By: #### L 501.9910, L500.4050, L502.0250, L100.0100, L500.4100, L501.9985 #### [facility] [address] [place], [address] MCH (RBC) [Entitic mass] 29.9 pg Normal 27.0-32.0 [facility] Comment on above: Performed By: #### L 501.9910, L500.4050, L502.0250, L100.0100, L500.4100, L501.9985 #### [facility] [address] [place], [address] MCHC (RBC) [Mass/Vol] 32.4 g/dL Normal 32-36 [facility] Comment on above: Performed By: #### L 501.9910, L500.4050, L502.0250, L100.0100, L500.4100, L501.9985 #### [facility] [address] [place], [address] MCV (RBC) [Entitic vol] 92.3 fL Normal 80-94 [facility] Comment on above: Performed By: #### L 501.9910, L500.4050, L502.0250, L100.0100, L500.4100, L501.9985 #### [facility] [address] [place], [address] Monocytes/100 WBC (Bld) 12.1 % High 0-10 [facility] Comment on above: Performed By: #### L 501.9910, L500.4050, L502.0250, L100.0100, L500.4100, L501.9985 #### [facility] [address] [place], [address] Neutrophils/100 WBC (Bld) 60.3 % Normal 47-70 [facility] Comment on above: Performed By: #### L 501.9910, L500.4050, L502.0250, L100.0100, L500.4100, L501.9985 #### [facility] [address] [place], [address] Nucleated RBC (Bld) [#/Vol] 0 10*3/uL Normal 0-5 [facility] Comment on above: Performed By: #### L 501.9910, L500.4050, L502.0250, L100.0100, L500.4100, L501.9985 #### [facility] [address] [place], [address] Platelet mean volume (Bld) [Entitic vol] 11.3 fL Normal 6.2-12.0 [facility] Comment on above: Performed By: #### L 501.9910, L500.4050, L502.0250, L100.0100, L500.4100, L501.9985 #### [facility] [address] [place], [address] Platelets (Bld) [#/Vol] 200 10*3/uL Normal 150-450 [facility] Comment on above: Performed By: #### L 501.9910, L500.4050, L502.0250, L100.0100, L500.4100, L501.9985 #### [facility] [address] [place], [address] RBC (Bld) [#/Vol] 5.08 10*6/uL Normal 4.6-6.2 [facility] Comment on above: Performed By: #### L 501.9910, L500.4050, L502.0250, L100.0100, L500.4100, L501.9985 #### [facility] [address] [place], [address] RDW SD 46.1 fl High 35.1-43.9 [facility] Comment on above: Performed By: #### L 501.9910, L500.4050, L502.0250, L100.0100, L500.4100, L501.9985 #### [facility] [address] [place], [address] WBC (Bld) [#/Vol] 9.2 10*3/uL Normal 4.4-11.0 [facility] Comment on above: Performed By: #### L 501.9910, L500.4050, L502.0250, L100.0100, L500.4100, L501.9985 #### [facility] [address] [place], [address] Comprehensive Metabolic Prof ilon 02-23-2024 Albumin [Mass/Vol] 3.6 g/dL Normal 3.2-5.0 [facility] Comment on above: Performed By: #### L 501.9910, L500.4050, L502.0250, L100.0100, L500.4100, L501.9985 #### [facility] [address] [place], [address] Albumin/Globulin [Mass ratio] 0.8 {ratio} Low 0.9-2.4 [facility] Comment on above: Performed By: #### L 501.9910, L500.4050, L502.0250, L100.0100, L500.4100, L501.9985 #### [facility] [address] [place], [address] ALK P 102 U/L Normal 45-117 [facility] Comment on above: Performed By: #### L 501.9910, L500.4050, L502.0250, L100.0100, L500.4100, L501.9985 #### [facility] [address] [place], [address] ALT [Catalytic activity/Vol] 49 U/L Normal 16-61 [facility] Comment on above: Performed By: #### L 501.9910, L500.4050, L502.0250, L100.0100, L500.4100, L501.9985 #### [facility] [address] [place], [address] AST [Catalytic activity/Vol] 31 U/L Normal 15-37 [facility] Comment on above: Performed By: #### L 501.9910, L500.4050, L502.0250, L100.0100, L500.4100, L501.9985 #### [facility] [address] [place], [address] Bilirubin [Mass/Vol] 0.50 mg/dL Normal 0.20-1.00 [place] Comment on above: Result Comment: For patients on eltrombopag therapy, use of Dimension [place] TBIL is not recommended. Performed By: #### L 501.9910, L500.4050, L502.0250, L100.0100, L500.4100, L501.9985 #### [facility] [address] [place], [address] BUN/CRE 16.0 RATIO Normal 10-20 [facility] Comment on above: Performed By: #### L 501.9910, L500.4050, L502.0250, L100.0100, L500.4100, L501.9985 #### [facility] [address] [place], [address] CA,Total 9.9 mg/dL Normal 8.5-10.1 [facility] Comment on above: Performed By: #### L 501.9910, L500.4050, L502.0250, L100.0100, L500.4100, L501.9985 #### [facility] [address] [place], [address] Chloride [Moles/Vol] 101 mmol/L Normal 98-107 [place] Comment on above: Performed By: #### L 501.9910, L500.4050, L502.0250, L100.0100, L500.4100, L501.9985 #### [facility] [address] [place], [address] CO2 [Moles/Vol] 29.0 mmol/L Normal 21.0-32.0 [facility] Comment on above: Performed By: #### L 501.9910, L500.4050, L502.0250, L100.0100, L500.4100, L501.9985 #### [facility] [address] [place], [address] Creatinine [Mass/Vol] 0.94 mg/dL Normal 0.70-1.30 [facility] Comment on above: Result Comment: The validity of the calculated GFR GFRAA in patients over 70 years has not been determined. Clinical correlation is essential. Performed By: #### L 501.9910, L500.4050, L502.0250, L100.0100, L500.4100, L501.9985 #### [facility] [address] [place], [address] EST GFR - AA 106 mL/min Normal >60 [facility] Comment on above: Result Comment: Afri can [place] GFR Calc Performed By: #### L 501.9910, L500.4050, L502.0250, L100.0100, L500.4100, L501.9985 #### [facility] [address] [place], [address] GAP 7 Normal 5-15 [facility] Comment on above: Performed By: #### L 501.9910, L500.4050, L502.0250, L100.0100, L500.4100, L501.9985 #### [facility] [address] [place], [address] GFR/1.73 sq M.predicted among non-blacks MDRD (S/P/Bld) [Vol rate/Area] 87 mL/min/{1.73_m2} Normal >60 [facility] Comment on above: Result Comment: Non- GFR Calc Performed By: #### L 501.9910, L500.4050, L502.0250, L100.0100, L500.4100, L501.9985 #### [facility] [address] [place], [address] Globulin (S) [Mass/Vol] 4.4 g/dL High 2.2-4.2 [facility] Comment on above: Performed By: #### L 501.9910, L500.4050, L502.0250, L100.0100, L500.4100, L501.9985 #### [facility] [address] [place], [address] Glucose [Mass/Vol] 124 mg/dL High 74-106 [facility] Comment on above: Result Comment: Fast ing Glucose result from 100 to 125 mg/dL suggests IMPAIRED HOMEOSTASIS per A.D.A. criteria. Performed By: #### L 501.9910, L500.4050, L502.0250, L100.0100, L500.4100, L501.9985 #### [facility] [address] [place], [address] Potassium [Moles/Vol] 4.2 mmol/L Normal 3.5-5.1 [facility] Comment on above: Performed By: #### L 501.9910, L500.4050, L502.0250, L100.0100, L500.4100, L501.9985 #### [facility] [address] [place], [address] Sodium [Moles/Vol] 137 mmol/L Normal 136-145 [facility] Comment on above: Performed By: #### L 501.9910, L500.4050, L502.0250, L100.0100, L500.4100, L501.9985 #### [facility] [address] [place], [address] T PROT 8.0 g/dL Normal 6.4-8.2 [facility] Comment on above: Performed By: #### L 501.9910, L500.4050, L502.0250, L100.0100, L500.4100, L501.9985 #### [facility] [address] [place], [address] Urea nitrogen [Mass/Vol] 15 mg/dL Normal 7-18 [facility] Comment on above: Performed By: #### L 501.9910, L500.4050, L502.0250, L100.0100, L500.4100, L501.9985 #### [facility] [address] [place], [address] Hemoglobin A1con 02-23-2024 HbA1c (Bld) [Mass fraction] 6.0 % High 3.8-5.6 [facility] Comment on above: Result Comment: Norm al < 5.7 % Prediabetic 5.7 - 6.4 % Diabetic >or= 6.5 % Please note range changes. Performed By: #### L 501.9910, L500.4050, L502.0250, L100.0100, L500.4100, L501.9985 #### [facility] [address] [place], [address] Lipid Profileon 02-23-2024 Cholesterol [Mass/Vol] 149 mg/dL Normal 200 [facility] Comment on above: Result Comment: <200 mg/dL Desirable 200-240 mg/dL Borderline >240 mg/dL High Risk Performed By: #### L 501.9910, L500.4050, L502.0250, L100.0100, L500.4100, L501.9985 #### [facility] [address] [place], [address] Cholesterol in HDL [Mass/Vol] 47 mg/dL Normal [facility] Comment on above: Result Comment: The drugs N-Acetylcysteine and Metamizole may falsely depress this assay. Reference Range HDL <40 mg/dL Low HDL Cholesterol HDL >or= 60 mg/dL High HDL Cholesterol Performed By: #### L 501.9910, L500.4050, L502.0250, L100.0100, L500.4100, L501.9985 #### [facility] [address] [place], [address] Cholesterol in LDL [Mass/Vol] 63 mg/dL Normal 0-130 [facility] Comment on above: Performed By: #### L 501.9910, L500.4050, L502.0250, L100.0100, L500.4100, L501.9985 #### [facility] [address] [place], [address] Cholesterol in VLDL [Mass/Vol] 39 mg/dL Normal 5-40 [facility] Comment on above: Performed By: #### L 501.9910, L500.4050, L502.0250, L100.0100, L500.4100, L501.9985 #### [facility] [address] [place], [address] Triglyceride [Mass/Vol] 194 mg/dL Normal [facility] Comment on above: Result Comment: The drugs N-Acetylcysteine and Metamizole may falsely depress this assay. Serum Triglycerides Reference Interval Normal <150 mg/dL Borderline high 150 - 199 mg/dL High 200 - 499 mg/dL Very High > or = 500 mg/dL Performed By: #### L 501.9910, L500.4050, L502.0250, L100.0100, L500.4100, L501.9985 #### [facility] [address] [place], [address] Microalb:Creat Ratio,Random URon 02-23-2024 Creatinine [Mass/Vol] 284.00 mg/dL Normal NO RANGE EST . [facility] Comment on above: Performed By: #### L 501.9910, L500.4050, L502.0250, L100.0100, L500.4100, L501.9985 #### [facility] [address] [place], [place], [id number] MALB:CRE 443.7 mg/g CRE High <30 mg/g CRE [facility] Comment on above: Performed By: #### L 501.9910, L500.4050, L502.0250, L100.0100, L500.4100, L501.9985 #### [facility] [address] [place], [address] MICROALBUMIN,UR 1260.0 mg/L Normal NO RANGE EST. [facility] Comment on above: Performed By: #### L 501.9910, L500.4050, L502.0250, L100.0100, L500.4100, L501.9985 #### [facility] [address] [place], [place], [id number] PSA,Total - Annual Screenon 02-23-2024 PSA,TOT SCREEN 0.81 ng/mL Normal 0.00-4.00 [facility] Comment on above: Result Comment: This test was performed using the TPSA assay method for the Tred chemistry system. Values obtained with different assay methods cannot be used interchangably. When changing PSA assays in the course of monitoring a patient, additional sequential testing should be carried out to confirm baseline values. Performed By: #### L 501.9910, L500.4050, L502.0250, L100.0100, L500.4100, L501.9985 #### [facility] [address] [place], [place], [id number] PT D/C Summary (1)on 024 PT D/C Summary (1) [facility] [address] [place] [address] / REHABILITATION SERVICES DISCHARGE SUMMARY MR#: [id number] Acct: [id number] Name: MELISSA CAROLINA Rep #: [id number] : 1965 58 From: Cristopher Castañeda DPT Referring Dr.: BASIL Baptiste Status: REG R CR Insurance: [facility] [id number] SELF PAY INSURANCE Discharge Summary D/C summary: It has been my pleasure to treat MELISSA CAROLINA referred by BASIL Baptiste, with the diagnosis of R TKA DOS: 11/24/23 for a total of 10 visit(s). Discharge Date: 01/21/24 Please see the following information for a summary of their discharge status. Subjective Subjective: Pt. reports overall doing well. No major issues. Pt. reports being 95% better overall. Pt. is pleased and reports being ready to be done with PT at this point in time. Pain R knee: Pain Intensity (Out of 10): 0 Overall Improvement % Improvement: 95 Objective Objective/Function: ROM: 0-0-130deg. R knee. tightness in HS bilaterally. MMT: R knee: ext 34.1#, flexion 25.9# L knee: ext 39.9#, flexion 27.7# STAIRS: Pt. is able to complete with reciprocal pattern with 1 HR without issues. Pt. does have some edema at pre patellar region, seems to be more like bursitis rather than knee edema. Pt. is overall doing well. Pt. will be DC from PT at this point in time. Goals Goal 1:: LTG: Pt. to be I with HEP for knee extension ROM and progressive strengthening. Goal Progress: Goal Met Goal 2:: STG: pt. to have full R knee extension allowing for increased stability with gait and functional mobility. Goal Progress: Goal Met Goal 3:: LTG: pt. to have symmetrical strength between BLEs without increase in symptoms. Goal Progress: Goal Met Goal 4:: LTG: Pt. to complete 30sec sit to stand rep test with at least 17 reps Goal Progress: Progressing Goal 5:: LTG: Pt. to complete TUG without AD with time less than 10seconds. Goal Progress: Goal Met Goal 6:: LTG: Pt. to complete negotiation of 1 flight of stairs with 1 HR with reciprocal pattern and less than 2/10 pain in R knee. Goal Progress: Goal Met Plan Plan: Pt.t o be DC from PT at this point in time. D/C Information d/c sentence: If there are questions or concerns regarding this patient's physical therapy, please feel free to call me at [phone]. Thank you for the referral of this patient. Sincerely, LEANDRA AmadoT Balance/Gait/Functio nal tests Balance/Special Test Scores Lower Extremity Functional Score: 69 TUG Test Time Seconds: 7.7 Tug Test: <10 sec.=free mobile 30 Second Chair Rise Test Seconds: 15 Improvement % Improvement: 95 01/21/24 1205 CC: BASIL Baptiste; Dr. Angelo Sinclair DO CLS Signed Normal [facility] PT D/C Summary (1) [facility] [address] [place] [address] [address] [place] [id number] / REHABILITATION SERVICES DISCHARGE SUMMARY MR#: [id number] Acct: [id number] Name: MELISSA CAROLINA Rep #: [id number] : 1965 58 From: Cristopher Castañeda DPT Referring Dr.: BASIL Baptiste Status: REG R CR Insurance: [facility] [id number] SELF PAY INSURANCE Discharge Summary D/C summary: It has been my pleasure to treat MELISSA CAROLINA referred by BASIL Baptiste, with the diagnosis of R TKA DOS: 11/24/23 for a total of 10 visit(s). Discharge Date: 01/21/24 Please see the following information for a summary of their discharge status. Subjective Subjective: Pt. reports overall doing well. No major issues. Pt. reports being 95% better overall. Pt. is pleased and reports being ready to be done with PT at this point in time. Pain R knee: Pain Intensity (Out of 10): 0 Overall Improvement % Improvement: 95 Objective Objective/Function: ROM: 0-0-130deg. R knee. tightness in HS bilaterally. MMT: R knee: ext 34.1#, flexion 25.9# L knee: ext 39.9#, flexion 27.7# STAIRS: Pt. is able to complete with reciprocal pattern with 1 HR without issues. Pt. does have some edema at pre patellar region, seems to be more like bursitis rather than knee edema. Pt. is overall doing well. Pt. will be DC from PT at this point in time. Goals Goal 1:: LTG: Pt. to be I with HEP for knee extension ROM and progressive strengthening. Goal Progress: Goal Met Goal 2:: STG: pt. to have full R knee extension allowing for increased stability with gait and functional mobility. Goal Progress: Goal Met Goal 3:: LTG: pt. to have symmetrical strength between BLEs without increase in symptoms. Goal Progress: Goal Met Goal 4:: LTG: Pt. to complete 30sec sit to stand rep test with at least 17 reps Goal Progress: Progressing Goal 5:: LTG: Pt. to complete TUG without AD with time less than 10seconds. Goal Progress: Goal Met Goal 6:: LTG: Pt. to complete negotiation of 1 flight of stairs with 1 HR with reciprocal pattern and less than 2/10 pain in R knee. Goal Progress: Goal Met Plan Plan: Pt.t o be DC from PT at this point in time. D/C Information d/c sentence: If there are questions or concerns regarding this patient's physical therapy, please feel free to call me at [phone]. Thank you for the referral of this patient. Sincerely, LEANDRA AmadoT Balance/Gait/Functio nal tests Balance/Special Test Scores Lower Extremity Functional Score: 69 TUG Test Time Seconds: 7.7 Tug Test: <10 sec.=free mobile 30 Second Chair Rise Test Seconds: 15 Improvement % Improvement: 95 01/21/24 1204 CC: BASIL Baptiste; Dr. Angelo Sinclair, CLS Signed Normal [facility] Inital Evaluation (1) - PTon 12-17-2023 Inital Evaluation (1) - PT [facility] [address] [place] [address] [address] [place] [address] / REHABILITATION SERVICES INITIAL EVALUATION MR#: [id number] Acct: [id number] Name: MELISSA CAROLINA Rep #: [id number] : 1965 58 From: Cristopher Castañeda DPT Referring Dr.: BASIL Baptiste Status: REG R CR Insurance: [facility] [id number] SELF PAY INSURANCE Patient's Visit Information Visit Information Visit Information: MELISSA CAROLINA is a 58 year old M referred to Physical Therapy by BASIL Baptiste with a diagnosis of R TKA DOS: 11/24/23. Date of Evaluation: 12/17/23 Physical Therapist: Cristopher Castañeda DPT Visit Plan Frequency: 3x /Week Duration: 5 weeks Plan: R TKA DOS: 11/24/23 1) knee extension ROM progress, maintain knee flexion. B HS stretching 2) quad/glute/HS strengthening 3) scar massage as need, IASTIM (not much adherence noted) 3) functional strengthening 4) gait progression working on mechanics progressing stair negotiation. May use ice/vaso if needed for edema control. Subjective Subjective: Pt. is here today for her initial evaluation with diagnosis of R TKA DOS 11/24/23. Pt. reports overall doing well. He had home health PT for the last 2 weeks. He reports overall doing well, no N/T, no calf pain, no chest pain or blurred vision. Pt. arrives without use of AD. He reports haivng 4/10 pain in R knee today. He is still having some issues with sleeping, but is still able to sleep. 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 Pt. is off until Feb 14. Pt. reports being compliant with all of his HEp from . He did have is L knee replaced last year with good results as well. Pt. is hopeful to improve his strength and walk better in order to get back to work, play golf and complete all activities around his home without issues. Pain R knee: Pain Intensity (Out of 10): 4 Pain Intensity Range: 1 and 5 Objective Objective: POSTURE: Pt. has wide EVELYN in stance, but equal wt. shift noted. Pt. has good knee positioning no marked varus/valgus and good knee extension as well. PALPATION: Pt. great healing incision. No signs of infection or DVT noted. NEURO: Normal sensation and normal achilles DTR. Pt. is able to rise on heels and toes without issues. ROM: R knee: PROM 0-127deg, AROM 0-4-125deg. Pt. has tightness in B HS. MMT: RLE: knee: ext 14.5#, flexion 27.7#; hip: flexion 40#, abd 13.9#, SLR with slight 10deg lag. LLE: knee: ext 45.5#, flexion 41.8#, hip: flexion 45.5#, abd 23.3#. 30sec sit to stand rep test: 11 with occasional use of UEs. TU.8sec without AD. GAIT: pt. ambulates without AD. He has good TKE during stance phase, lacks knee flexion during swing. Wide EVELYN noted. STAIRS: Pt. able to complete with reciprocal pattern, but heavy use of railings. Similar with descending. Balance/Special Test Scores Lower Extremity Functional Score: 36 Goals Goal 1:: LTG: Pt. to be I with HEP for knee extension ROM and progressive strengthening. Goal Time Frame: 4-6 Weeks Goal 2:: STG: pt. to have full R knee extension allowing for increased stability with gait and functional mobility. Goal Time Frame: 2-4 Weeks Goal 3:: LTG: pt. to have symmetrical strength between BLEs without increase in symptoms. Goal Time Frame: 4-6 Weeks Goal 4:: LTG: Pt. to complete 30sec sit to stand rep test with at least 17 reps Goal 5:: LTG: Pt. to complete TUG without AD with time less than 10seconds. Goal Time Frame: 4-6 Weeks Goal 6:: LTG: Pt. to complete negotiation of 1 flight of stairs with 1 HR with reciprocal pattern and less than 2/10 pain in R knee. Goal Time Frame: 4-6 Weeks Rehabilitation Potential Physical Therapy Diagnosis: Pt. has signs and symptoms consistent with R TKA DOS: 11/24/23. Pt. has good knee flexion, but some tightness into extension. He also has marked R LE weakness and difficul ty with stairs and walking. he would benefit from PT to address the above limitations progressing back to all work and recreational activities without limitations. Rehabilitation Potential: Excellent Anticipated Interventions Patient/Client Instruction: Educate patient on: Condition, Plan of Care, Risk Factors and Benefits of Fitness Program For the Purpose of:: To foster healthy habits, To improve decision making, To facilitate caregiver knowledge, To improve self management, To prevent re-injury and To improve ability to perform tasks related to life management Therapeutic Exercise to Include: Strength training, Endurance training, Balance training, Coordination, Postural training, Flexibilty training, Gait and locomotor training, Passive ROM and Active ROM For the Purpose of:: To decrease pain, To increase ROM, To improve nutrient delivery to tissue, To increase oxygenation perfusion, To improve muscle performance and motor function, To improve ability to perform ADL's, To i (more content not included)... Normal [facility] Basophil percentageOrdered B y: Angelo Sinclair on 02-17-2023 Bilirubin [Mass/Vol] 0.30 mg/dL 0.20-1.00 [place] Comment on above: For patients on eltr ombopag therapy, use of [employer] [place] TBIL is not recommended. Chloride [Moles/Vol] 99 mmol/L 98-107 [facility] Cholesterol [Mass/Vol] 139 mg/dL <200 [facility] Comment on above: <200 mg/dL Desirable 200-240 mg/dL Borderline >240 mg/dL High Risk Glucose [Mass/Vol] 122 mg/dL 74-106 [facility] Comment on above: Fasting Glucose resu lt from 100 to 125 mg/dL suggests IMPAIRED HOMEOSTASIS per A.D.A. criteria. Potassium [Moles/Vol] 3.9 mmol/L 3.5-5.1 [facility] Protein [Mass/Vol] 8.0 g/dL 6.4-8.2 [facility] Sodium [Moles/Vol] 134 mmol/L 136-145 [facility] Triglyceride [Mass/Vol] 175 mg/dL <[address] [facility] Comment on above: The drugs N-Acetylcy steine and Metamizole may falsely depress this assay.Serum Triglycerides Reference Interval Normal <150 mg/dL Borderline high 150 - 199 mg/dL High 200 - 499 mg/dL Very High > or = 500 mg/dL Laboratory - Chemistry and C hemistry - challengeOrdered By: Angelo Sinclair on 02-17-2023 ALP [Catalytic activity/Vol] 104 U/L 45-117 [facility] ALT [Catalytic activity/Vol] 48 U/L 16-61 [facility] CO2 [Moles/Vol] 27.0 mmol/L 21.0-32.0 [facility] Globulin (S) [Mass/Vol] 4.3 g/dL 2.2-4.[address] [facility] Urea nitrogen/Creatinine [Mass ratio] 22.2 mg/mg 10-20 [facility] No Panel InformationOrdered By: Angelo Sinclair on 02-17-2023 Estimated GFR (MDRD) Amer 90 mL/min >60 [facility] Comment on above: GFR Calc Estimated GFR (MDRD) Non-Af Amer 74 mL/min >60 [facility] Comment on above: Non- GFR Calc Prostate Specific Antigen Screen 0.81 ng/mL 0.00-4.00 [facility] Comment on above: This test was perfor med using the TPSA assay method for [employer] chemistry system. Values obtained with differentassay methods cannot be used interchangably.When changing PSA assays in the course of monitoring apatient, additional sequential testing should be carriedout to confirm baseline values. Urine Microalbumin/Creatinine Ratio 15.5 mg/g CRE <30 [facility] Serum or plasma albumin estefania urement (mass/volume)Ordered By: Angelo Sinclair on 02-17-2023 Albumin [Mass/Vol] 3.7 g/dL 3.2-5.0 [facility] Serum or plasma albumin/glob ulin mass ratioOrdered By: Angelo Sinclair on 02-17-2023 Albumin/Globulin [Mass ratio] 0.9 {ratio} 0.9-2.4 [facility] Serum or plasma calcium estefania urement (mass/volume)Ordered By: Angelo Sinclair on 02-17-2023 Calcium [Mass/Vol] 8.8 mg/dL 8.5-10.1 [facility] Serum or plasma cholesterol in HDL measurement (mass/volume)Ordered By: Angelo Sinclair on 02-17-2023 Cholesterol in HDL [Mass/Vol] 39 mg/dL >40 [facility] Comment on above: The drugs N-Acetylcy steine and Metamizole may falsely depress this assay. Reference Range HDL <40 mg/dL Low HDL Cholesterol HDL >or= 60 mg/dL High HDL Cholesterol Serum or plasma cholesterol in VLDL measurement (mass/volume)Ordered By: Angelo Sinclair on 02-17-2023 Cholesterol in VLDL [Mass/Vol] 35 mg/dL 5-40 [facility] Serum or plasma creatinine m easurement (mass/volume)Ordered By: Angelo Sinclair on 02-17-2023 Creatinine [Mass/Vol] 1.08 mg/dL 0.70-1.30 [facility] Comment on above: The validity of the calculated GFR & GFRAA in patients over 70 years has not been determined. Clinical correlation is essential. Serum or plasma low density lipoprotein (LDL) cholesterol measurement (mass/volume)Ordered By: Angelo Sinclair on 02-17-2023 Cholesterol in LDL [Mass/Vol] 65 mg/dL 0-130 [facility] Serum or plasma urea nitroge n measurement (mass/volume)Ordered By: Angelo Sinclair on 02-17-2023 Urea nitrogen [Mass/Vol] 24 mg/dL 7-18 [facility] Thin prep Papanicolaou smear with manual screeningOrdered By: Angelo Sinclair on 02-17-2023 Thin prep Papanicolaou smear with manual screening 22 U/L 15-37 [facility] Thin prep Papanicolaou smear with manual screening 8 5-15 [facility] Thin prep Papanicolaou smear with manual screening 24.0 mg/L NO RANGE EST. [facility] Urine creatinine measurement (mass/volume)Ordered By: Angelo Sinclair on 02-17-2023 Creatinine (U) [Mass/Vol] 155.00 mg/dL NO RANGE EST. [facility] Whole blood hemoglobin A1c/t otal hemoglobin ratio (mass fraction)Ordered By: Angelo Sinclair on 02-17-2023 HbA1c (Bld) [Mass fraction] 6.0 % 3.8-5.6 [facility] Comment on above: Normal < 5.7 % Predi abetic 5.7 - 6.4 % Diabetic >or= 6.5 % Please note range changes. Absolute lymphocyte counton 01-10-2022 Lymphocytes Auto (Unsp spec) [#/Vol] 2.21 10*3/uL 0.83-4.51 [facility] Work Phone: Basophil percentageon 2021 Basophils/100 WBC (Bld) 0.8 % 0-[address] [facility] Work Phone: Bilirubin [Mass/Vol] 0.40 mg/dL 0.20-1.00 [place] Work Phone: Comment on above: For patients on eltr ombopag therapy, use of [employer] [place] TBIL is not recommended. Chloride [Moles/Vol] 100 mmol/L 98-107 [place] Work Phone: Cholesterol [Mass/Vol] 268 mg/dL <200 [facility] Work Phone: Comment on above: <200 mg/dL Desirable 200-240 mg/dL Borderline >240 mg/dL High Risk Eosinophils/100 WBC (Bld) 2.7 % 0-5 [facility] Work Phone: Glucose [Mass/Vol] 178 mg/dL 74-106 [facility] Work Phone: Comment on above: Fasting Glucose resu lt greater than or equal to 126 mg/dL suggests DIABETES MELLITUS per A.D.A. criteria. Neutrophils (Bld) [#/Vol] 5.0 10*3/uL 2.0-7.7 [facility] Work Phone: Neutrophils/100 WBC (Bld) 58.8 % 47-70 [facility] Work Phone: Potassium [Moles/Vol] 4.3 mmol/L 3.5-5.1 [facility] Work Phone: Protein [Mass/Vol] 7.7 g/dL 6.4-8.2 [facility] Work Phone: Sodium [Moles/Vol] 134 mmol/L 136-145 [facility] Work Phone: Triglyceride [Mass/Vol] 343 mg/dL <[address] [facility] Work Phone: Comment on above: The drugs N-Acetylcy steine and Metamizole may falsely depress this assay.Serum Triglycerides Reference Interval Normal <150 mg/dL Borderline high 150 - 199 mg/dL High 200 - 499 mg/dL Very High > or = 500 mg/dL WBC (Bld) [#/Vol] 8.5 10*3/uL 4.4-11.0 [facility] Work Phone: Blood erythrocytes count (nu mber/volume)on 01-10-2022 RBC (Bld) [#/Vol] 4.97 10*6/uL 4.6-6.2 [facility] Work Phone: Blood hemoglobin measurement (mass/volume)on 01-10-2022 Hemoglobin (Bld) [Mass/Vol] 16.1 g/dL 13.0-16.5 [facility] Work Phone: Blood lymphocytes/100 leukoc yteson 01-10-2022 Lymphocytes/100 WBC (Bld) 26.1 % 19-41 [facility] Work Phone: Blood monocytes/100 leukocyt eson 01-10-2022 Monocytes/100 WBC (Bld) 11.1 % 0-[address] [facility] Work Phone: Blood platelet mean volumeon 01-10-2022 Platelet mean volume (Bld) [Entitic vol] 12.4 fL 6.2-12.0 [facility] Work Phone: Determination of erythrocyte mean corpuscular volume (MCV)on 01-10-2022 MCV (RBC) [Entitic vol] 95.0 fL 80-[address] [facility] Work Phone: Hematocrit Auto (Bld) [Volum e fraction]on 01-10-2022 Hematocrit (Bld) [Volume fraction] 47.2 % 40-54 [facility] Work Phone: Laboratory - Chemistry and C hemistry - challengeon 01-10-2022 ALP [Catalytic activity/Vol] 96 U/L 45-117 [facility] Work Phone: ALT [Catalytic activity/Vol] 46 U/L 16-61 [facility] Work Phone: CO2 [Moles/Vol] 27.0 mmol/L 21.0-32.0 [facility] Work Phone: Globulin (S) [Mass/Vol] 4.4 g/dL 2.2-4.[address] [facility] Work Phone: Urea nitrogen/Creatinine [Mass ratio] 12.8 mg/mg 10-20 [facility] Work Phone: Laboratory - Hematology and Cell countson 01-10-2022 Erythrocyte distribution width (RBC) [Entitic vol] 46.0 fL 35.1-43.9 [facility] Work Phone: Erythrocyte distribution width (RBC) [Ratio] 13.2 % 11.6-14.6 [facility] Work Phone: Immature granulocytes/100 WBC (Bld) 0.500 % 0.0-0.9 [facility] Work Phone: Comment on above: IG% - Immature Granu locytes (promyelocytes, myelocytes and metamyelocytes) > 1% indicates that a LEFT SHIFT is Present. MCH (RBC) [Entitic mass] 32.4 pg 27.0-32.0 [facility] Work Phone: Nucleated RBC/100 WBC (Bld) [Ratio] 0 % 0-5 [facility] Work Phone: MCHC Auto (RBC) [Mass/Vol]on 01-10-2022 MCHC (RBC) [Mass/Vol] 34.1 g/dL 32-36 [facility]: No Panel Informationon 01-10 Estimated GFR (MDRD) Amer 82 mL/min >60 [facility] Work Phone: Comment on above: GFR Calc Estimated GFR (MDRD) Non-Af Amer 68 mL/min >60 [facility] Work Phone: Comment on above: Non- GFR Calc Prostate Specific Antigen Screen 0.75 ng/mL 0.00-4.00 [facility] Work Phone: Comment on above: This test was perfor med using the TPSA assay method for the[employer] chemistry system. Values obtained with differentassay methods cannot be used interchangably.When changing PSA assays in the course of monitoring apatient, additional sequential testing should be carriedout to confirm baseline values. Platelets bldon 01-10-2022 Platelets (Bld) [#/Vol] 201 10*3/uL 150-450 [facility] Work Phone: Serum or plasma albumin estefania urement (mass/volume)on 01-10-2022 Albumin [Mass/Vol] 3.3 g/dL 3.2-5.0 [facility] Work Phone: Serum or plasma albumin/glob ulin mass ratioon 01-10-2022 Albumin/Globulin [Mass ratio] 0.8 {ratio} 0.9-2.4 [facility] Work Phone: Serum or plasma calcium estefania urement (mass/volume)on 01-10-2022 Calcium [Mass/Vol] 9.1 mg/dL 8.5-10.1 [facility] Work Phone: Serum or plasma cholesterol in HDL measurement (mass/volume)on 01-10-2022 Cholesterol in HDL [Mass/Vol] 36 mg/dL >40 [facility] Work Phone: Comment on above: The drugs N-Acetylcy steine and Metamizole may falsely depress this assay. Reference Range HDL <40 mg/dL Low HDL Cholesterol HDL >or= 60 mg/dL High HDL Cholesterol Serum or plasma cholesterol in VLDL measurement (mass/volume)on 01-10-2022 Cholesterol in VLDL [Mass/Vol] 69 mg/dL 5-40 [facility] Work Phone: Serum or plasma creatinine m easurement (mass/volume)on 01-10-2022 Creatinine [Mass/Vol] 1.17 mg/dL 0.70-1.30 [facility] Work Phone: Comment on above: The validity of the calculated GFR & GFRAA in patients over 70 years has not been determined. Clinical correlation is essential. Serum or plasma low density lipoprotein (LDL) cholesterol measurement (mass/volume)on 01-10-2022 Cholesterol in LDL [Mass/Vol] 163 mg/dL 0-130 [facility] Work Phone: Serum or plasma urea nitroge n measurement (mass/volume)on 01-10-2022 Urea nitrogen [Mass/Vol] 15 mg/dL 7-18 [facility] Work Phone: Thin prep Papanicolaou smear with manual screeningon 01-10-2022 Thin prep Papanicolaou smear with manual screening 21 U/L 15-37 [facility] Work Phone: Thin prep Papanicolaou smear with manual screening 7 5-15 [facility] Work Phone: Whole blood hemoglobin A1c/t otal hemoglobin ratio (mass fraction)on 01-10-2022 HbA1c (Bld) [Mass fraction] 8.2 % 3.8-5.6 [facility] Work Phone: Comment on above: Normal < 5.7 % Predi abetic 5.7 - 6.4 % Diabetic >or= 6.5 % Please note range changes. Vital Signs Date Time Vital Sign Value Performing Clinician Faci lity 09-23-2024 10:38-0400 Body height 175.[address] Angelo Sinclair DO Work Phone: [facility] 04-10-2022 08:23-0500 Body height 175.[address] Angelo Sinclair Work Phone: [facility] 04-10-2022 08:23-0500 Body mass index (BMI) [Ratio] 38.9 kg/m2 Dr. Angelo Sinclair Work Phone: [facility] 04-10-2022 08:23-0500 Body temperature 98.4 [degF] Dr. Angelo Sinclair Work Phone: [facility] 04-10-2022 08:23-0500 Body weight 119.[address] Angelo Sinclair Work Phone: [facility] 04-10-2022 08:23-0500 Diastolic blood pressure 94 mm[Hg] Dr. Angelo Sinclair Work Phone: [facility] 04-10-2022 08:23-0500 Diastolic blood pressure 74 mm[Hg] Dr. Angelo Sinclair DO Work Phone: [facility] 04-10-2022 08:23-0500 Heart rate 120 /min Dr. Angelo Sinclair Work Phone: [facility] 04-10-2022 08:23-0500 Heart rate 71 /min Dr. Angelo Sinclair DO Work Phone: [facility] 04-10-2022 08:23-0500 Respiratory rate 18 /min Dr. Angelo Sinclair DO Work Phone: [facility] 04-10-2022 08:23-0500 SaO2% (BldA) [Mass fraction] 96 % Dr. Angelo Sinclair Work Phone: [facility] 04-10-2022 08:23-0500 Systolic blood pressure 138 mm[Hg] Dr. Angelo Sinclair Work Phone: [facility] 04-10-2022 08:23-0500 Systolic blood pressure 105 mm[Hg] Dr. Angelo Sinclair DO Work Phone: [facility] Encounters Encounter Date Encounter Type Care Provider Facility Start: 09-23-2024 End: 09-23-[address] Selam Mark MD -[facility] Work Phone: Start: 09-23-2024 End: 09-23-[address] Angelo Sinclair DO Work Phone: -[facility] Start: 03-25-2024 Encounter for genera l adult medical [facility] Start: 02-23-2024 End: 02-23-2024 ambulatory Angelo Sinclair Facility:[facility] Start: 01-21-2024 End: 01-21-2024 ambulatory Tim Lopez Facility:[facility] Start: 02-17-2023 End: 02-17-2023 ambulatory [facility] Work Phone: Start: 02-17-2023 End: 02-17-2023 Patient encounter procedure [facility]Labor[facility], Jena Felder STEVE Start: 05-08-2022 End: 05-08-[address] Angelo Sinclair Work Phone: [facility] Work Phone: Start: 05-08-2022 End: 05-08-[address] Angelo Sinclair Work Phone: [facility]-Cat Scan, [facility] Start: 04-10-2022 End: 04-10-[address] Angelo Sinclair Work Phone: [facility]-Pulmonary Medicine [facility] Start: 03-06-2022 End: 03-06-2022 ambulatory [facility] Work Phone: Start: 03-06-2022 End: 03-06-2022 Patient encounter procedure [facility]Sleep [facility] Start: 02-21-2022 End: 02-21-2022 ambulatory [facility] Work Phone: Start: 02-21-2022 End: 02-21-2022 Patient encounter procedure [facility] Start: 01-10-2022 End: 01-10-2022 Patient encounter procedure [facility], Jena Felder [facility] Procedures Date Procedure Procedure Detail Performing Clinician Start: 05-08-[address] Angelo fleming Work Phone: Plan of Treatment Date Care Activity Detail Author Start: 09-23-2024 Evaluation of diagno stic study results [facility] Complete blood count [facility] Comprehensive metabo lic 1999 panel - Serum or Plasma [facility] Lipid 1996 panel - S mayela or Plasma [facility] NM Heart Views W str ess and W radionuclide IV [facility] Thyroid stimulating hormone measurement [facility] Immunizations Immunization Date Immunization Notes Care Provider Licha montes 04-11-2020 Covid ([facility] 03-14-2020 Covid ([facility]) [facility] 02-07-2020 influenza, injectabl e, quadrivalent, preservative free [facility] 02-07-2020 influenza, seasonal, injectable [facility] 02-08-2019 influenza, injectabl e, quadrivalent, preservative free [facility] 02-08-2019 influenza, seasonal, injectable [facility] 02-12-2018 influenza, injectabl e, quadrivalent, preservative free [facility] 02-12-2018 influenza, seasonal, injectable [facility] 02-12-2017 influenza, injectabl e, quadrivalent, preservative free [facility] 02-12-2017 influenza, seasonal, injectable [facility] 12-15-2015 influenza, injectabl e, quadrivalent, preservative free [facility] 12-15-2015 influenza, seasonal, injectable [facility] 12-15-2014 influenza, injectabl e, quadrivalent, preservative free [facility] 12-15-2014 influenza, seasonal, injectable [facility] 12-09-2013 influenza, injectabl e, quadrivalent, preservative free [facility] 12-09-2013 influenza, seasonal, [facility] 03-25-2013 Influenza virus vaccine W [facility] Payers Date Payer Category Payer Unknown [id number] 2023 Self-pay [id number] 2023 Unknown [id number] Unknown [id number] Unknown [id number] Social History Date Type Detail Facility Start: 12-27-2019 End: 04-10-2022 Tobacco smoking status AKIS Unknown if ever smoked [facility] Start: 12-10-2019 Cigarettes [facility] Start: 1965 Sex Assigned At Male W [facility] Start: 04-10-2022 Tobacco smoking stat us AKIS Smokes tobacco daily (finding) [facility] Medical Equipment Procedure Code Equipment Code Equipment Origin al Text Equipment Identifier Dates Repair, hernia, umbilical, using mesh MESH,VENTLEX ST SM 4.3CM FDA Start: 12-20-2019 Repair, hernia, umbilical, using mesh MESH,VENTLEX ST SM 4.3CM FDA Start: 12-20-2019 Repair, hernia, umbilical, using mesh MESH,VENTLEX ST SM 4.3CM FDA Start: 12-20-2019 Repair, hernia, umbilical, using mesh MESH,VENTLEX ST SM 4.3CM FDA Start: 12-20-2019 Repair, hernia, umbilical, using mesh MESH,VENTLEX ST SM 4.3CM FDA Start: 12-20-2019 Evaluation note Note Date & Type Note Facility Evaluation note No assessment information availa [facility] Work Phone: Evaluation note Note Date & Type Note Facility Evaluation note Diagnosis Onset Date BMI 38.0-38.9,adult acute TRAN (obstructive sleep apnea) acute Smoking greater than 20 pack years chronic [facility] Work Phone: Evaluation note Note Date & Type Note Facility Evaluation note Diagnosis Onset Date Resolution Coronary atherosclerosis acute September 23, 2024 10:28am Diabetes acute September 23 10:28am Dyslipidemia acute September 23 10:28am Obesity acute September 23 10:28am TRAN (obstructive sleep apnea) acute September 23, 2024 10:28am Atrial flutter chronic September 23, 2024 10:28am COPD (chronic obstructive pulmonary disease) chronic September 23 10:28am Dyspnea on exertion chronic September 23, 2024 10:28am Essential hypertension chronic 2024 10:28am [facility] Work Phone: Reason for referral (narrative) Note Date & Type Note Facility Reason for referral (narrative) No reason for referral information available [facility] Work Phone: Chief Complaint and Reason for Visit Chief Complaint HYPERSOMNIA, HTN Chief Complaint HYPERSOMNIA, HTN Sleep problems NICOTINE DEPENDENCE Reason for Visit BMI 38.0-38.9,adult TRAN (obstructive sleep apnea) Smoking greater than 20 pack years Chief Complaint Admit Date Atrial fibrillation September 23, 2024 10:2 8am Reason for Visit Admit Date Coronary atherosclerosis September 23, 2024 10:28am Diabetes September 23, 2024 10:2 8am Dyslipidemia September 23, 2024 10:2 8am Obesity September 23, 2024 10:2 8am TRAN (obstructive sleep apnea) September 23, 2024 10:28am Atrial flutter September 23, 2024 10:2 8am COPD (chronic obstructive pulmonary dise ase) September 23, 2024 10:28am Dyspnea on exertion September 23, 2024 10:2 8am Essential hypertension September 23, 2024 1 0:28am Advance Directives No Advanced Directives Records Found Advance Directive Response Recorded Date/ Time Living Will No December 10, 2019 7:19am Power of Lab Support Service Tech No November 7:19am Summary Purpose Family History No Family History Records Found Additional Source Comments Goals (unrecognized section and content) Goals may be documented in a n alternate sectionGoals may be documented in an alternate sectionGoals may be documented in an alternate sectionGoals may be documented in an alternate section Care Teams (unrecognized sec tion and content) Team Status: Active Member Role Status Dates Dr. Angelo Sinclair , DO Family Provider Active Dr. Angelo Sinclair DO Primary Care Provider Active Team Status: Inactive Member Role Status Dates Dr. Angelo Sinclair , DO Primary Care Provider, Referrin g Provider Active Margarita Grider BUSINESS BANKING RELATIONSHIP MANAGER, BUSINESS BANKING RELATIONSHIP MANAGER-C Attending Provider Active Team Status: Inactive Member Role Status Dates Dr. Angelo Sinclair , DO Primary Care Prov ider, Attending Provider, Referring Provider Active Team Status: Inactive Member Role Status Dates Dr. Angelo Sinclair DO Primary Care Provider Active Margarita Grider BUSINESS BANKING RELATIONSHIP MANAGER, BUSINESS BANKING RELATIONSHIP MANAGER-C Attending Provider, Referrin g Provider Active Team Status: Inactive Member Role Status Dates Dr. Angelo Sinclair DO Primary Care Provider, Attendin g Provider Active Team Status: Active Member Role/Relationship Status Dates Dr. Angelo Sinclair DO Primary Care Provider Active Team Status: Inactive Member Role/Relationship Status Dates Dr. Angelo Sinclair DO Primary Care Provider Active Start: September 23, 2024 End: September 23, 2024 Dr. Angelo Sinclair DO Referring Provider Active Start: September 23, 2024 End: September 23, 2024 Dr. Selam Mark MD Attending Provider Active Start: September 23, 2024 End: September 23, 2024 (unrecognized sect ion and content) No Status Records Found INFORMATION SOURCE (unrecogn ized section and content) DATE CREATED AUTHOR 09/27/2024 [facility] FOR RECORDS PERTAINING TO PATIENTS WHO ARE OR HAVE BEEN ENROLLED IN A CHEMICAL DEPENDENCY/SUBSTANCEABUSE PROGRAM, SOME INFORMATION MAY BE OMITTED. This clinical summary was aggregated from multiple sources. Caution should be exercised in using it in the provision of clinical care. This summary normalizes information from multiple sources, and as a consequence, information in this document may materially change the coding, format and clinical context of patient data. In addition, data may be omitted in some cases. CLINICAL DECISIONS SHOULD BE BASED ON THE PRIMARY CLINICAL RECORDS. [employer] provides no warranty or guarantee of the accuracy or completeness of information in this document.
== END | disposition home or self-care (01) ==
LOC: CVS 14:59
PROVIDERS: PCP Family Medicine; Referring Provider Family Medicine; Visit Provider Family Medicine
DX: I48.91 Unspecified atrial fibrillation (principal)
CPT/HCPCS: 93306

== ENCOUNTER → 2025-01-19 | Outpatient (CLI) | payer OTHER, SELFPAY ==
--- NOTE | 2025-01-19 14:38 | STRESSREP_ITS ---
Stress Test Report
--- NOTE | 2025-01-19 14:38 | STRESSREP ---
Stress Test Report Date: 01/19/2025 Procedure: Pharmacologic stress nuclear imaging study Indications: Abnormal ECG Consent: Per the patient Procedure: The patient underwent pharmacologic (Regadenoson 0.4mg ) evaluation with a peak heart rate of 95 beats per minute (59%predicted maximal heart rate) and a peak blood pressure of 116/78 mmHg. The baseline ECG demonstrated atrial flutter. The peak pharmacologic ECG did not show any ischemic changes. Baseline atrial flutter noted. There was no complaint of chest discomfort during pharmacologic infusion or recovery. The patient was injected with 14.9 millicuries of technetium 99m Cardiolite and subsequently rest SPECT Cardiolite nuclear imaging was obtained in the horizontal long, vertical long, and short axis views. The patient underwent pharmacologic (Regadenoson) evaluation. The patient was injected with 44.8 millicuries of technetium 99m Cardiolite and subsequently stress SPECT Cardiolite nuclear imaging was obtained in the horizontal long, vertical long, and short axis views. No gated images available. The examination was stopped secondary to completion of protocol. Rest and stress SPECT Cardiolite nuclear imaging status post realignment, normalization, and attenuation correction demonstrate mildly reduced perfusion of the inferior wall post pharmacological stress, suggestive of ischemia. Impression: 1. Pharmacologic (Regadenoson) evaluation 2. Peak pharmacologic ECG with no ischemic changes. 3. Baseline atrial flutter with variable conduction. 5. Mild reversible ischemia of the inferior wall. This note was generated with [employer] software. It may contain incorrect words, spelling, and punctuation that were not noted in checking the note before signing.
== END | disposition home or self-care (01) ==
LOC: CVS 06:17
PROVIDERS: PCP Family Medicine; Referring Provider Internal Medicine Cardiovascular Disease; Visit Provider Internal Medicine Cardiovascular Disease
DX: R94.31 Abnormal electrocardiogram [ECG] [EKG] (principal); I48.92 Unspecified atrial flutter; I25.10 Atherosclerotic heart disease of native coronary artery without angina pectoris
CPT/HCPCS: 78452; 93017; A9500; A4216; J2785

== ENCOUNTER → 2025-01-27 | Outpatient (CLI) | payer OTHER, SELFPAY ==
--- OUTSIDE RECORDS SUMMARY | 2025-01-27 20:07 | XMS RPT_ITS | CCD ---
Author Organization [facility] Care Team Providers Care Strategic Intelligence Officer Name Role Phone Dr. Angelo Sinclair Primary Care Provider Dr. Angelo Sinclair Referring Provider Cheo GRAVES, RADHA Avila Attending Provider Dr. Angelo Sinclair DO Primary Care Provider [phone] Dr. Angelo Sinclair DO Referring Provider Jas MOSLEY, Dr. Doss Attending Provider Dr. Angelo Sinclair DO Attending Provider Dr. Selam Mark MD Other Provider [phone] Israel MOSLEY, Dr. Marina Attending Provider Jessica MEJÍA, Tim Cuevas Unavailable NONE, NONE Unavailable Unavailable Angelo Sinclair DO Unavailable [phone] Angelo Sinclair Primary Care Unavailable Angelo Sinclair Attending Unavailable Angelo Sinclair Referring Unavailable Jas, Selam Referring Unavailable Angelo Sinclair Primary Care Unavailable JasSelam Attending Unavailable JsaSelam Consulting Unavailable Angelo Sinclair Primary Care Unavailable Angelo Sinclair Attending Unavailable Angelo Sinclair Referring Unavailable Salas Wood Attending Unavailable Angelo Sinclair Primary Care Unavailable DottieAngelo garcia Primary Care Unavailable Venus Benedict NP Attending Unavailable Jas, Selam Consulting Unavailable Angelo Sinclair Primary Care Unavailable JasSelam Attending Unavailable Jas, Selam Referring Unavailable Angelo Sinclair Primary Care Unavailable Selam Mark Attending Unavailable Angelo Sinclair Referring Unavailable Angelo Sinclair Referring Unavailable Angelo Sinclair Primary Care Unavailable Angelo Sinclair Attending Unavailable Angelo Sinclair Primary Care Unavailable Selam Mark Attending Unavailable Selam Mark Referring Unavailable Medications Current Medications Medication Drug Class(es) Dates Sig (Normalized) Sig (Original) [id number] 200 actuat albuterol 0.09 mg/actuat metered dose inhaler (1 source) beta2-Adrenergic Agonist albuterol sulfate HFA 90 mcg/actuation aerosol inhaler active Arnold Macedo [place] apixaban 5 mg oral tablet (3 sources) Factor Xa Inhibitor Start: 09-09-2024 take 1 tablet by mouth twice daily Apixaban (Eliquis) 5 mg tablet Active 5 mg PO TWICE A DAY September 09, 2024 12:00am celecoxib 100 mg oral capsule (1 source) Nonsteroidal Anti-inflammatory Drug take 1 capsule by mouth twice daily celecoxib 100 mg capsule 1 capsule by mouth twice a day active Randa Cuenca [facility] citalopram 20 mg oral tablet (7 sources) Serotonin Reuptake Inhibitor Start: 03-19-2013 take 1 tablet by mouth once daily Citalopram 20 MG tablet Active 20 mg PO DAILY March 19, 2013 1:00am 24 hr dilTIAZem hydrochloride 240 mg extended release oral capsule (3 sources) Calcium Channel Sanjay Start: 09-09-2024 take 1 capsule by mouth once daily in the morning, then take 1 capsule by mouth every twenty-four hours Diltiazem Hcl (Tiadylt Er) 240 mg capsule,extended release 24 hr Active 240 mg PO EVERY MORNING September 09, 2024 12:00am diltiazem CD 300 mg capsule,extended release 24 hr active Arnold Macedo [place] hydroCHLOROthiazide 25 mg / lisinopril 20 mg oral tablet (9 sources) Thiazide Diuretic, Angiotensin Converting Enzyme Inhibitor Start: 12-06-2019 End: 09-23-2024 Lisinopril-Hydrochlorothiazi de 20-25 mg tablet Active 0.5 {tbl} PO DAILY September 23, 2024 10:34am htn Start: 12-06-2019 take 1 tablet by sam once daily Lisinopril-Hydrochlorothiazide Active 1 TABLET PO DAILY December 05, 2019 11:00pm metFORMIN hydrochloride 1000 mg oral tablet (3 sources) Biguanide Start: 09-09-2024 take 1 tablet by mouth twice daily Metformin 1,000 mg tablet Active 1000 mg PO TWICE A DAY September 09, 2024 12:00am rosuvastatin 20 mg oral capsule (3 sources) HMG-CoA Reductase Inhibitor Start: 09-09-2024 Rosuvastatin 20 mg tablet Active mg PO September 09, 2024 12:00am take 1 tablet by mouth once sydni y rosuvastatin 20 mg tablet 1 tablet by mouth once a day active Randaraisa Cuenca [facility] Completed/Discontinued Medications Medication Drug Class(es) Dates Sig (Normalized) Sig (Original) acetaminophen 325 mg / oxyCODONE hydrochloride 5 mg oral tablet (6 sources) Opioid Agonist Start: 12-20-2019 End: 12-26-2019 [...] aspirin 81 mg delayed release oral tablet (2 sources) Platelet Aggregation Inhibitor, Nonsteroidal Anti-inflammatory Drug Start: 09-09-2024 End: 09-23-2024 Aspirin (Adult Low Dose Aspirin) 81 mg tablet,delayed release (DR/EC) Discontinued 81 mg PO daily September 09, 2024 12:00am September 23, 2024 10:59am clindamycin 300 mg oral capsule (6 sources) Lincosamide Antibacterial Start: 03-19-2013 End: 04-14-2018 take 1 capsule by mouth every six hours Clindamycin Hcl 300 MG capsule Discontinued 300 mg PO EVERY 6 HOURS 30 0 March 19, 2013 1:00am April 14, 2018 2:20pm diclofenac potassium 50 mg oral tablet (6 sources) Nonsteroidal Anti-inflammatory Drug Start: 04-14-2018 End: 09-09-2024 take 1 tablet by mouth twice daily Diclofenac Potassium 50 mg tablet Discontinued 50 mg PO TWICE A DAY April 14, 2018 1:00am September 09, 2024 10:00am arthritis fluconazole 50 mg oral tablet (6 sources) Azole Antifungal Start: 04-14-2018 End: 04-14-2018 take 1 tablet by mouth once daily Fluconazole (Diflucan) 50 mg tablet Discontinued 50 mg PO DAILY April 14, 2018 1:00am April 14, 2018 2:22pm hydroCHLOROthiazide 12.5 mg / telmisartan 80 mg oral tablet (6 sources) Thiazide Diuretic, Angiotensin 2 Receptor Sanjay Start: 03-19-2013 End: 12-06-2019 Telmisartan-[place] chlorothiazid 1 EACH tablet Discontinued 1 NMA PO DAILY March 19, 2013 1:00am December 06, 2019 1:20pm Start: 03-19-2013 End: 12-06-2019 Telmisartan-Hydrochlorothiaz id Discontinued 1 EACH PO DAILY March 19, 2013 12:00am December 06, 2019 12:20pm methylPREDNISolone 4 mg oral tablet (6 sources) Corticosteroid Start: 04-14-2018 End: 04-19-2018 take 1 tablet by mouth once Methylprednisolone (Medrol (Lukas)) 4 mg tablets,dose pack Discontinued 4 mg PO per package directions 21 5 0 April 14, 2018 1:00am April 18, 2018 1:00am April 19, 2018 1:09am Problems Problem Classification Problem Date Documented Date Episodic/Chronic Abdominal hernia (6 sources) Umbilical hernia; Translations: [Umbilical hernia without obstruction or gangrene] 12-20-2019 Episodic Cardiac dysrhythmias (7 sources) Atrial flutter; Translations: [Unspecified atrial flutter] Onset: 5 09-23-2024 Chronic Chronic obstructive pulmonary disease and bronchiectasis (4 sources) Chronic obstructive lung disease; Translations: [Chronic obstructive pulmonary disease, unspecified] 09-09-2024 Chronic Coronary atherosclerosis and other heart disease (6 sources) Coronary atherosclerosis; Translations: [Atherosclerotic heart disease of [place] coronary artery without angina pectoris] Onset: 5 09-09-2024 Chronic Diabetes mellitus without complication (4 sources) Diabetes mellitus; Translations: [Type 2 diabetes mellitus without complications] 09-23-2024 Chronic Disorders of lipid metabolism (6 sources) Dyslipidemia; Translations: [Hyperlipidemia, unspecified] 09-23-2024 Chronic Essential hypertension (5 sources) Essential hypertension; Translations: [Essential (primary) hypertension] Onset: 5 09-09-2024 Chronic Osteoarthritis (2 sources) Unilateral primary osteoarthritis, left knee; Translations: [Osteoarthrosis, localized, primary, lower leg] Onset: 3 04-16-2022 Chronic Other aftercare (1 source) Aftercare following joint replacement surgery; Translations: [Aftercare following joint replacement] Onset: 3 08-01-2022 Chronic Other connective tissue disease (1 source) Presence of right artificial knee joint; Translations: [Knee joint replacement] Onset: 4 01-01-2024 Chronic Other connective tissue disease (1 source) Presence of left artificial knee joint; Translations: [Knee joint replacement] Onset: 3 10-01-2022 Chronic Other connective tissue disease (6 sources) Tendinitis; Translations: [Iliotibial band syndrome, left leg] 12-06-2019 Episodic Other lower respiratory disease (4 sources) Dyspnea on exertion; Translations: [Other forms of dyspnea] 09-23-2024 Episodic Other nutritional; endocrine; and metabolic disorders (4 sources) Body mass index 30+ - obesity; Translations: [Body mass index (BMI) 38.0-38.9, adult] 04-10-2022 Chronic Other nutritional; endocrine; and metabolic disorders (1 source) Body mass index (BMI) 38.0-38.9, adult; Translations: [Body Mass Index 38.0-38.9, adult] 04-10-2022 Chronic Other nutritional; endocrine; and metabolic disorders (4 sources) Obesity; Translations: [Obesity, unspecified] 09-23-2024 Chronic Other screening for suspected conditions (not mental disorders or infectious disease) (1 source) Abnormal electrocardiogram [ECG] [EKG]; Translations: [Abnormal electrocardiogram [ECG] [EKG]] Onset: 5 Episodic Residual codes; unclassified (6 sources) Obstructive sleep apnea syndrome; Translations: [Obstructive sleep apnea (adult) (pediatric)] 04-10-2022 Chronic Comment on above: AHI noted to be 15.9 Residual codes; unclassified (3 sources) Obstructive sleep apnea (adult) (pediatric); Translations: [Obstructive sleep apnea (adult)(pediatric)] Onset: 04-10-2022 Chronic Substance-related disorders (5 sources) Cigarette smoker ; Translations: [Nicotine dependence, cigarettes, uncomplicated] 04-10-2022 Chronic Comment on above: current 1/2 PPD Results Test Name Value Interpretation Reference Range Facility Stress Reporton 01-19-2025 Stress Report [facility] [address] [place] [address] MR#: [id number] Acct: [id number] Name: MELISSA CAROLINA Rep #: [id number] : 1965 59 From: Selam Mark MD Primary Care: Dr. Angelo Sinclair, DO Status: REG CLI Referring Dr: Selam Mark MD Sex: M C Stress Test Report Date: 01/19/2025 Procedure: Pharmacologic stress nuclear imaging study Indications: Abnormal ECG Consent: Per the patient Procedure: The patient underwent pharmacologic (Regadenoson 0.4mg ) evaluation with a peak heart rate of 95 beats per minute (59%predicted maximal heart rate) and a peak blood pressure of 116/78 mmHg. The baseline ECG demonstrated atrial flutter. The peak pharmacologic ECG did not show any ischemic changes. Baseline atrial flutter noted. There was no complaint of chest discomfort during pharmacologic infusion or recovery. The patient was injected with 14.9 millicuries of technetium 99m Cardiolite and subsequently rest SPECT Cardiolite nuclear imaging was obtained in the horizontal long, vertical long, and short axis views. The patient underwent pharmacologic (Regadenoson) evaluation. The patient was injected with 44.8 millicuries of technetium 99m Cardiolite and subsequently stress SPECT Cardiolite nuclear imaging was obtained in the horizontal long, vertical long, and short axis views. No gated images available. The examination was stopped secondary to completion of protocol. Rest and stress SPECT Cardiolite nuclear imaging status post realignment, normalization, and attenuation correction demonstrate mildly reduced perfusion of the inferior wall post pharmacological stress, suggestive of ischemia. Impression: 1. Pharmacologic (Regadenoson) evaluation 2. Peak pharmacologic ECG with no ischemic changes. 3. Baseline atrial flutter with variable conduction. 5. Mild reversible ischemia of the inferior wall. This note was generated with [employer] dictation software. It may contain incorrect words, spelling, and punctuation that were not noted in checking the note before signing. 01/19/25 1440 Date Selam Mark MD CC: Dr. Selam Mark MD; Dr. Angelo Sinclair, Date Dictated: 01/19/251437 Date Transcribed: 01/19/251437 Metal Caster: ALBERT Signed Normal [facility] Relevant diagnostic tests/la boratory data Narrativeon 12-07-2024 Fall risk assessment no [employer] Work Phone: MEDS REVIEW Documentation of current medications (procedure) [employer] Work Phone: MEDS REVIEWD Medications reviewed without changes [employer] Work Phone: Echo Completeon 10-11-2024 Echo Complete [facility] [address] [place] [address] Echo Complete 10/11/24 1507 MR#: [id number] Acct: [id number] Name: MELISSA CAROLINA Rep #: [id number] : 1965 59 From: Salas Wood MD Attending Dr: Dr. Angelo Sinclair, Status: REG CLI Ordering Dr: Angelo Sinclair DO Date: 10/11/24 Location: [facility] Sex: M C Admitted: Reason For Study Reason For Study: NEW AFIB Procedure This was a 2D Doppler, Color Flow transthoracic echocardiogram. Exam performed in department. Left Ventricle Normal LV size. Moderate concentric left ventricular hypertrophy. Left ventricular systolic function is normal. The left ventricular ejection fraction is 55 %. No regional wall motion abnormalities noted. Right Ventricle Normal RV size. Normal systolic function. Atria Normal left atrium. Normal right atrium. Mitral Valve Normal mitral valve. Tricuspid Valve Normal tricuspid valve. Moderate (2+) tricuspid valve insufficiency. Pulmonary artery systolic pressure is 57 mmHg. Aortic Valve The aortic valve is not well visualized. Pulmonic Valve The pulmonic valve is not well visualized. Great Vessels Mildly dilated aortic root. The pulmonary artery is normal size. Inferior vena cava collapse with sniff. Pericardium/Pleural Moderate (1.0-2.0 cm) pericardial effusion. There are no echocardiographic indications of cardiac tamponade. Localized effusion. MMode/2D Measurements Calculations LVIDd: 4.7 cm IVSd: 1.5 cm Ao root diam: 3.8 cm LVIDs: 3.6 cm LVPWd: 1.2 cm FS: 23.8 % LAV(MOD-bp): 51.9 ml LVAd ap4: 23.2 cm2 SV(MOD-sp4): 29.0 ml LAV(MOD-bp) Indexed: 22.1 ml/m2 LVLd ap4: 8.1 cm SI(MOD-sp4): 12.4 ml/m2 LAV(MOD-sp2): 65.0 ml EDV(MOD-sp4): 58.6 ml LAV(MOD-sp4): 39.1 ml EDV(sp4-el): 56.7 ml LVAs ap4: 15.6 cm2 LVLs ap4: 7.2 cm ESV(MOD-sp4): 29.6 ml ESV(sp4-el): 28.7 ml EF(MOD-sp4): 49.5 % EF(sp4-el): 49.4 % SV(sp4-el): 28.0 ml LA A4 area: 15.7 cm2 LA dimension(2D): 4.4 cm RA A4 area: 20.7 cm2 Doppler Measurements Calculations Ao V2 max: 222.3 cm/sec LV V1 max: 122.9 cm/sec TR max flor: 358.2 cm/sec Ao max P.8 mmHg LV V1 max P.2 mmHg TR max P.3 mmHg Ao V2 mean: 163.4 cm/sec LV V1 mean P.8 mmHg Ao mean P.0 mmHg LV V1 mean: 91.0 cm/sec Ao V2 VTI: 37.2 cm LV V1 VTI: 19.9 cm AV (velocity ratio): 0.53 ECHO/Echo Complete Interpretation Summary Normal LV size. Left ventricular systolic function is normal. Moderate concentric left ventricular hypertrophy. The left ventricular ejection fraction is 55 %. Moderate (1.0-2.0 cm) pericardial effusion. Localized effusion. Ordering Physician: Angelo Sinclair Referring Physician: Angelo Sinclair Performed By: Nilda Arvizu RCS 10/11/24 1604 Date Salas Wood MD CC: Dr. Angelo Sinclair, DO Date Dictated: 10/11/24 1507 Date Transcribed: 10/11/24 1604 Metal Caster: Signed Normal [facility] Echocardiogram study reportO rdered By: Salas Wood on 10-11-2024 Study report [facility] [place] [place] [address] Echo Complete 10/11/24 1507 MR#: [id number] Acct: [id number] Name: MELISSA CAROLINA Rep #:[id number] : 1965 59 From: Salas Bautista Attending Dr: Dr. Angelo Sinclair, DO Status: REG CLI Ordering Dr: Angelo Sinclair DO Date: 10/11/24 Location: [facility] Sex: M C Admitted: Reason For Study Reason For Study: NEW AFIB Procedure This was a 2D Doppler, Color Flow transthoracic echocardiogram. Exam performed in department. Left Ventricle Normal LV size. Moderate concentric left ventricular hypertrophy. Left ventricular systolic function is normal. The left ventricular ejection fraction is 55 %. No regional wall motion abnormalities noted. Right Ventricle Normal RV size. Normal systolic function. Atria Normal left atrium. Normal right atrium. Mitral Valve Normal mitral valve. Tricuspid Valve Normal tricuspid valve. Moderate (2+) tricuspid valve insufficiency. Pulmonary artery systolic pressure is 57 mmHg. Aortic Valve The aortic valve is not well visualized. Pulmonic Valve The pulmonic valve is not well visualized. Great Vessels Mildly dilated aortic root. The pulmonary artery is normal size. Inferior vena cava collapse with sniff. Pericardium/Pleural Moderate (1.0-2.0 cm) pericardial effusion. There are no echocardiographic indications of cardiac tamponade. Localized effusion. MMode/2D Measurements & Calculations LVIDd: 4.7 cm IVSd: 1.5 cm Ao root diam: 3.8 cm LVIDs: 3.6 cm LVPWd: 1.2 cm FS: 23.8 % LAV(MOD-bp): 51.9 ml LVAd ap4: 23.2 cm2 SV(MOD-sp4): 29.0 ml LAV(MOD-bp) Indexed: 22.1 ml/m2 LVLd ap4: 8.1 cm SI(MOD-sp4): 12.4 ml/m2 LAV(MOD-sp2): 65.0 ml EDV(MOD-sp4): 58.6 ml LAV(MOD-sp4): 39.1 ml EDV(sp4-el): 56.7 ml LVAs ap4: 15.6 cm2 LVLs ap4: 7.2 cm ESV(MOD-sp4): 29.6 ml ESV(sp4-el): 28.7 ml EF(MOD-sp4): 49.5 % EF(sp4-el): 49.4 % SV(sp4-el): 28.0 ml LA A4 area: 15.7 cm2 LA dimension(2D): 4.4 cm RA A4 area: 20.7 cm2 Doppler Measurements & Calculations Ao V2 max: 222.3 cm/sec LV V1 max: 122.9 cm/sec TR max flor: 358.2 cm/sec Ao max P.8 mmHg LV V1 max P.2 mmHg TR max P.3 mmHg Ao V2 mean: 163.4 cm/sec LV V1 mean P.8 mmHg Ao mean P.0 mmHg LV V1 mean: 91.0 cm/sec Ao V2 VTI: 37.2 cm LV V1 VTI: 19.9 cm AV (velocity ratio): 0.53 ECHO/Echo Complete Interpretation Summary Normal LV size. Left ventricular systolic function is normal. Moderate concentric left ventricular hypertrophy. The left ventricular ejection fraction is 55 %. Moderate (1.0-2.0 cm) pericardial effusion. Localized effusion. Ordering Physician: Angelo Sinclair Referring Physician: Angelo Sinclair Performed By: Nilda Arvizu RCS 10/11/24 1604 Date _ Salas Wood MD CC: DO Kelby Rodriguez Date Dictated: 10/11/24 1507 Date Transcribed: 10/11/24 1604 Metal Caster: Signed [facility] Work Phone: Cardiology Visit Reporton Cardiology Visit Report [facility] [address] [place] [address] OFFICE VISIT Date of Service: 09/23/24 MR#: [id number] Acct: [id number] Name: MELISSA CAROLINA Rep #: [id number] : 1965 Provider: Dr. Selam Mark MD Age/Sex: 58/M Location: [facility] Status: Signed HPI HPI History [...] 0.5 tab PO DAILY htn 09/23/2409/14 History mg-hydrochlorothiazid e 25 mg tablet PFS Medical History COPD (chronic obstructive pulmonary disease) [...] Coronary atherosclerosi (more content not included)... Normal [facility] CBC W/Diff, Automatedon 12-0 Absolute Lymph 2.31 X10 3/uL Normal 0.83-4.51 [facility] Comment on above: Performed By: #### L 501.9910, L500.4050, L502.0250, L100.0100, L500.4100, L501.9985 #### [facility] [address] [place], [address] Absolute Neut 5.5 X10 3/uL Normal 2.0-7.7 [facility] Comment on above: Performed By: #### L 501.9910, L500.4050, L502.0250, L100.0100, L500.4100, L501.9985 #### [facility] [address] [place], [address] Basophils/100 WBC (Bld) 0.7 % Normal 0-1 [facility] Comment on above: Performed By: #### L 501.9910, L500.4050, L502.0250, L100.0100, L500.4100, L501.9985 #### [facility] [address] [place], [address] Eosinophils/100 WBC (Bld) 1.3 % Normal 0-5 [facility] Comment on above: Performed By: #### L 501.9910, L500.4050, L502.0250, L100.0100, L500.4100, L501.9985 #### [facility] [address] [place], [address] Erythrocyte distribution width (RBC) [Ratio] 13.5 % Normal 11.6-14.6 [facility] Comment on above: Performed By: #### L 501.9910, L500.4050, L502.0250, L100.0100, L500.4100, L501.9985 #### [facility] [address] [place], [address] Hematocrit (Bld) [Volume fraction] 46.9 % Normal 40-54 [facility] Comment on above: Performed By: #### L 501.9910, L500.4050, L502.0250, L100.0100, L500.4100, L501.9985 #### [facility] [address] [place], [address] Hemoglobin (Bld) [Mass/Vol] 15.2 g/dL Normal 13.0-16.5 [facility] Comment on above: Performed By: #### L 501.9910, L500.4050, L502.0250, L100.0100, L500.4100, L501.9985 #### [facility] [address] [place], [address] IG% 0.400 Normal 0.0-0.9 [facility] Comment on above: Result Comment: IG% - Immature Granulocytes (promyelocytes, myelocytes and metamyelocytes) > 1% indicates that a LEFT SHIFT is Present. Performed By: #### L 501.9910, L500.4050, L502.0250, L100.0100, L500.4100, L501.9985 #### [facility] [address] [facility] [place], [address] Lymphocytes/100 WBC (Bld) 25.2 % Normal 19-41 [facility] Comment on above: Performed By: #### L 501.9910, L500.4050, L502.0250, L100.0100, L500.4100, L501.9985 #### [facility] [address] [place], [address] MCH (RBC) [Entitic mass] 29.9 pg Normal 27.0-32.0 [facility] Comment on above: Performed By: #### L 501.9910, L500.4050, L502.0250, L100.0100, L500.4100, L501.9985 #### [facility] [address] [place], [address] MCHC (RBC) [Mass/Vol] 32.4 g/dL Normal 32-36 [facility] Comment on above: Performed By: #### L 501.9910, L500.4050, L502.0250, L100.0100, L500.4100, L501.9985 #### [facility] [address] [place] [place], [address] MCV (RBC) [Entitic vol] 92.3 fL Normal 80-94 [facility] Comment on above: Performed By: #### L 501.9910, L500.4050, L502.0250, L100.0100, L500.4100, L501.9985 #### [facility] [address] [place], [address] Monocytes/100 WBC (Bld) 12.1 % High 0-10 [facility] Comment on above: Performed By: #### L 501.9910, L500.4050, L502.0250, L100.0100, L500.4100, L501.9985 #### [facility] [address] [place], [address] Neutrophils/100 WBC (Bld) 60.3 % Normal 47-70 [facility] Comment on above: Performed By: #### L 501.9910, L500.4050, L502.0250, L100.0100, L500.4100, L501.9985 #### [facility] [address] [place], [address] Nucleated RBC (Bld) [#/Vol] 0 10*3/uL Normal 0-5 [facility] Comment on above: Performed By: #### L 501.9910, L500.4050, L502.0250, L100.0100, L500.4100, L501.9985 #### [facility] [address] [place], [address] Platelet mean volume (Bld) [Entitic vol] 11.3 fL Normal 6.2-12.0 [facility] Comment on above: Performed By: #### L 501.9910, L500.4050, L502.0250, L100.0100, L500.4100, L501.9985 #### [facility] [address] [place], [address] Platelets (Bld) [#/Vol] 200 10*3/uL Normal 150-450 [facility] Comment on above: Performed By: #### L 501.9910, L500.4050, L502.0250, L100.0100, L500.4100, L501.9985 #### [facility] [address] [facility] [place], [address] RBC (Bld) [#/Vol] 5.08 10*6/uL Normal 4.6-6.2 [facility] Comment on above: Performed By: #### L 501.9910, L500.4050, L502.0250, L100.0100, L500.4100, L501.9985 #### [facility] [address] [place], [address] RDW SD 46.1 fl High 35.1-43.9 [facility] Comment on above: Performed By: #### L 501.9910, L500.4050, L502.0250, L100.0100, L500.4100, L501.9985 #### [facility] [address] [place], [address] WBC (Bld) [#/Vol] 9.2 10*3/uL Normal 4.4-11.0 [facility] Comment on above: Performed By: #### L 501.9910, L500.4050, L502.0250, L100.0100, L500.4100, L501.9985 #### [facility] [address] [place], [address] Comprehensive Metabolic Prof ilon 02-23-2024 Albumin [Mass/Vol] 3.6 g/dL Normal 3.2-5.0 [facility] Comment on above: Performed By: #### L 501.9910, L500.4050, L502.0250, L100.0100, L500.4100, L501.9985 #### [facility] [address] [place], [address] Albumin/Globulin [Mass ratio] 0.8 {ratio} Low 0.9-2.4 [facility] Comment on above: Performed By: #### L 501.9910, L500.4050, L502.0250, L100.0100, L500.4100, L501.9985 #### [facility] [address] [place], [address] ALK P 102 U/L Normal 45-117 [facility] Comment on above: Performed By: #### L 501.9910, L500.4050, L502.0250, L100.0100, L500.4100, L501.9985 #### [facility] [address] [place], [address] ALT [Catalytic activity/Vol] 49 U/L Normal 16-61 [facility] Comment on above: Performed By: #### L 501.9910, L500.4050, L502.0250, L100.0100, L500.4100, L501.9985 #### [facility] [address] [place], [address] AST [Catalytic activity/Vol] 31 U/L Normal 15-37 [facility] Comment on above: Performed By: #### L 501.9910, L500.4050, L502.0250, L100.0100, L500.4100, L501.9985 #### [facility] [address] [place], [address] Bilirubin [Mass/Vol] 0.50 mg/dL Normal 0.20-1.00 [facility] Comment on above: Result Comment: For patients on eltrombopag therapy, use of Dimension [place] TBIL is not recommended. Performed By: #### L 501.9910, L500.4050, L502.0250, L100.0100, L500.4100, L501.9985 #### [facility] [address] [place], [address] BUN/CRE 16.0 RATIO Normal 10-20 [facility] Comment on above: Performed By: #### L 501.9910, L500.4050, L502.0250, L100.0100, L500.4100, L501.9985 #### [facility] [address] [place], [address] CA,Total 9.9 mg/dL Normal 8.5-10.1 [facility] Comment on above: Performed By: #### L 501.9910, L500.4050, L502.0250, L100.0100, L500.4100, L501.9985 #### [facility] [address] [place], [address] Chloride [Moles/Vol] 101 mmol/L Normal 98-107 [facility] Comment on above: Performed By: #### L 501.9910, L500.4050, L502.0250, L100.0100, L500.4100, L501.9985 #### [facility] [address] [place], [address] CO2 [Moles/Vol] 29.0 mmol/L Normal 21.0-32.0 [facility] Comment on above: Performed By: #### L 501.9910, L500.4050, L502.0250, L100.0100, L500.4100, L501.9985 #### [facility] [address] [place], [address] Creatinine [Mass/Vol] 0.94 mg/dL Normal 0.70-1.30 [facility] Comment on above: Result Comment: The validity of the calculated GFR GFRAA in patients over 70 years has not been determined. Clinical correlation is essential. Performed By: #### L 501.9910, L500.4050, L502.0250, L100.0100, L500.4100, L501.9985 #### [facility] [address] [place], [address] EST GFR - AA 106 mL/min Normal >60 [facility] Comment on above: Result Comment: Afri can Nigerian GFR Calc Performed By: #### L 501.9910, L500.4050, L502.0250, L100.0100, L500.4100, L501.9985 #### [facility] [address] [place], [address] GAP 7 Normal 5-15 [facility] Comment on above: Performed By: #### L 501.9910, L500.4050, L502.0250, L100.0100, L500.4100, L501.9985 #### [facility] [address] [place], [address] GFR/1.73 sq M.predicted among non-blacks MDRD (S/P/Bld) [Vol rate/Area] 87 mL/min/{1.73_m2} Normal >60 [facility] Comment on above: Result Comment: Non- GFR Calc Performed By: #### L 501.9910, L500.4050, L502.0250, L100.0100, L500.4100, L501.9985 #### [facility] [address] [place], [address] Globulin (S) [Mass/Vol] 4.4 g/dL High 2.2-4.2 [facility] Comment on above: Performed By: #### L 501.9910, L500.4050, L502.0250, L100.0100, L500.4100, L501.9985 #### [facility] [address] [place], [address] Glucose [Mass/Vol] 124 mg/dL High 74-106 [facility] Comment on above: Result Comment: Fast ing Glucose result from 100 to 125 mg/dL suggests IMPAIRED HOMEOSTASIS per A.D.A. criteria. Performed By: #### L 501.9910, L500.4050, L502.0250, L100.0100, L500.4100, L501.9985 #### [facility] [address] [place], [address] Potassium [Moles/Vol] 4.2 mmol/L Normal 3.5-5.1 [facility] Comment on above: Performed By: #### L 501.9910, L500.4050, L502.0250, L100.0100, L500.4100, L501.9985 #### [facility] [address] [place], [address] Sodium [Moles/Vol] 137 mmol/L Normal 136-145 [facility] Comment on above: Performed By: #### L 501.9910, L500.4050, L502.0250, L100.0100, L500.4100, L501.9985 #### [facility] [address] [place], [address] T PROT 8.0 g/dL Normal 6.4-8.2 [facility] Comment on above: Performed By: #### L 501.9910, L500.4050, L502.0250, L100.0100, L500.4100, L501.9985 #### [facility] [address] [place], [address] Urea nitrogen [Mass/Vol] 15 mg/dL Normal 7-18 [facility] Comment on above: Performed By: #### L 501.9910, L500.4050, L502.0250, L100.0100, L500.4100, L501.9985 #### [facility] [address] [place], [address] Hemoglobin A1con 02-23-2024 HbA1c (Bld) [Mass fraction] 6.0 % High 3.8-5.6 [facility] Comment on above: Result Comment: Norm al < 5.7 % Prediabetic 5.7 - 6.4 % Diabetic >or= 6.5 % Please note range changes. Performed By: #### L 501.9910, L500.4050, L502.0250, L100.0100, L500.4100, L501.9985 #### [facility] [address] [place], [address] Lipid Profileon 02-23-2024 Cholesterol [Mass/Vol] 149 mg/dL Normal 200 [facility] Comment on above: Result Comment: <200 mg/dL Desirable 200-240 mg/dL Borderline >240 mg/dL High Risk Performed By: #### L 501.9910, L500.4050, L502.0250, L100.0100, L500.4100, L501.9985 #### [facility] [address] [place], [address] Cholesterol in HDL [Mass/Vol] 47 mg/dL Normal [facility] Comment on above: Result Comment: The drugs N-Acetylcysteine and Metamizole may falsely depress this assay. Reference Range HDL <40 mg/dL Low HDL Cholesterol HDL >or= 60 mg/dL High HDL Cholesterol Performed By: #### L 501.9910, L500.4050, L502.0250, L100.0100, L500.4100, L501.9985 #### [facility] [address] [place], [address] Cholesterol in LDL [Mass/Vol] 63 mg/dL Normal 0-130 [facility] Comment on above: Performed By: #### L 501.9910, L500.4050, L502.0250, L100.0100, L500.4100, L501.9985 #### [facility] [address] [place], [address] Cholesterol in VLDL [Mass/Vol] 39 mg/dL Normal 5-40 [facility] Comment on above: Performed By: #### L 501.9910, L500.4050, L502.0250, L100.0100, L500.4100, L501.9985 #### [facility] [address] [place], [address] Triglyceride [Mass/Vol] 194 mg/dL Normal [facility] Comment on above: Result Comment: The drugs N-Acetylcysteine and Metamizole may falsely depress this assay. Serum Triglycerides Reference Interval Normal <150 mg/dL Borderline high 150 - 199 mg/dL High 200 - 499 mg/dL Very High > or = 500 mg/dL Performed By: #### L 501.9910, L500.4050, L502.0250, L100.0100, L500.4100, L501.9985 #### [facility] [address] [place], [address] Microalb:Creat Ratio,Random URon 02-23-2024 Creatinine [Mass/Vol] 284.00 mg/dL Normal NO RANGE EST . [facility] Comment on above: Performed By: #### L 501.9910, L500.4050, L502.0250, L100.0100, L500.4100, L501.9985 #### [facility] [address] [place], [address] MALB:CRE 443.7 mg/g CRE High <30 mg/g CRE [facility] Comment on above: Performed By: #### L 501.9910, L500.4050, L502.0250, L100.0100, L500.4100, L501.9985 #### [facility] [address] [place], [address] MICROALBUMIN,UR 1260.0 mg/L Normal NO RANGE EST. [facility] Comment on above: Performed By: #### L 501.9910, L500.4050, L502.0250, L100.0100, L500.4100, L501.9985 #### [facility] [address] [place], [address] PSA,Total - Annual Screenon 02-23-2024 PSA,TOT SCREEN 0.81 ng/mL Normal 0.00-4.00 [facility] Comment on above: Result Comment: This test was performed using the TPSA assay method for the [employer] chemistry system. Values obtained with different assay methods cannot be used interchangably. When changing PSA assays in the course of monitoring a patient, additional sequential testing should be carried out to confirm baseline values. Performed By: #### L 501.9910, L500.4050, L502.0250, L100.0100, L500.4100, L501.9985 #### [facility] [address] [place], [address] Basophil percentageOrdered B y: Angelo Sinclair on 02-17-2023 Bilirubin [Mass/Vol] 0.30 mg/dL 0.20-1.00 [facility] Comment on above: For patients on eltr ombopag therapy, use of Dimension [place] TBIL is not recommended. Chloride [Moles/Vol] 99 mmol/L 98-107 [facility] Cholesterol [Mass/Vol] 139 mg/dL <200 [facility] Comment on above: <200 mg/dL Desirable 200-240 mg/dL Borderline >240 mg/dL High Risk Glucose [Mass/Vol] 122 mg/dL 74-106 [facility] Comment on above: Fasting Glucose resu lt from 100 to 125 mg/dL suggests IMPAIRED HOMEOSTASIS per A.D.A. criteria. Potassium [Moles/Vol] 3.9 mmol/L 3.5-5.1 [facility] Protein [Mass/Vol] 8.0 g/dL 6.4-8.2 [facility] Sodium [Moles/Vol] 134 mmol/L 136-145 [facility] Triglyceride [Mass/Vol] 175 mg/dL <199 [facility] Comment on above: The drugs N-Acetylcy steine and Metamizole may falsely depress this assay.Serum Triglycerides Reference Interval Normal <150 mg/dL Borderline high 150 - 199 mg/dL High 200 - 499 mg/dL Very High > or = 500 mg/dL Laboratory - Chemistry and C hemistry - challengeOrdered By: Angelo Sinclair on 02-17-2023 ALP [Catalytic activity/Vol] 104 U/L 45-117 [facility] ALT [Catalytic activity/Vol] 48 U/L 16-61 [facility] CO2 [Moles/Vol] 27.0 mmol/L 21.0-32.0 [facility] Globulin (S) [Mass/Vol] 4.3 g/dL 2.2-4.2 [facility] Urea nitrogen/Creatinine [Mass ratio] 22.2 mg/mg 10-20 [facility] No Panel InformationOrdered By: Angelo Sinclair on 02-17-2023 Estimated GFR (MDRD) Amer 90 mL/min >60 [facility] Comment on above: GFR Calc Estimated GFR (MDRD) Non-Af Amer 74 mL/min >60 [facility] Comment on above: Non- GFR Calc Prostate Specific Antigen Screen 0.81 ng/mL 0.00-4.00 [facility] Comment on above: This test was perfor med using the TPSA assay method for the[facility] Center[facility]plet[facility] chemistry system. Values obtained with differentassay methods cannot be used interchangably.When changing PSA assays in the course of monitoring apatient, additional sequential testing should be carriedout to confirm baseline values. Urine Microalbumin/Creatinine Ratio 15.5 mg/g CRE <30 [facility] Serum or plasma albumin estefania urement (mass/volume)Ordered By: Angelo Sinclair on 02-17-2023 Albumin [Mass/Vol] 3.7 g/dL 3.2-5.0 [facility] Serum or plasma albumin/glob ulin mass ratioOrdered By: Angelo Sinclair on 02-17-2023 Albumin/Globulin [Mass ratio] 0.9 {ratio} 0.9-2.4 [facility] Serum or plasma calcium estefania urement (mass/volume)Ordered By: Angelo Sinclair on 02-17-2023 Calcium [Mass/Vol] 8.8 mg/dL 8.5-10.1 [facility] Serum or plasma cholesterol in HDL measurement (mass/volume)Ordered By: Angelo Sinclair on 02-17-2023 Cholesterol in HDL [Mass/Vol] 39 mg/dL >40 [facility] Comment on above: The drugs N-Acetylcy steine and Metamizole may falsely depress this assay. Reference Range HDL <40 mg/dL Low HDL Cholesterol HDL >or= 60 mg/dL High HDL Cholesterol Serum or plasma cholesterol in VLDL measurement (mass/volume)Ordered By: Angelo Sinclair on 02-17-2023 Cholesterol in VLDL [Mass/Vol] 35 mg/dL 5-40 [facility] Serum or plasma creatinine m easurement (mass/volume)Ordered By: Angelo Sinclair on 02-17-2023 Creatinine [Mass/Vol] 1.08 mg/dL 0.70-1.30 [facility] Comment on above: The validity of the calculated GFR & GFRAA in patients over 70 years has not been determined. Clinical correlation is essential. Serum or plasma low density lipoprotein (LDL) cholesterol measurement (mass/volume)Ordered By: Angelo Sinclair on 02-17-2023 Cholesterol in LDL [Mass/Vol] 65 mg/dL 0-130 [facility] Serum or plasma urea nitroge n measurement (mass/volume)Ordered By: Angelo Sinclair on 02-17-2023 Urea nitrogen [Mass/Vol] 24 mg/dL 7-18 [facility] Thin prep Papanicolaou smear with manual screeningOrdered By: Angelo Sinclair on 02-17-2023 Thin prep Papanicolaou smear with manual screening 22 U/L 15-37 [facility] Thin prep Papanicolaou smear with manual screening 8 5-15 [facility] Thin prep Papanicolaou smear with manual screening 24.0 mg/L NO RANGE EST. [facility] Urine creatinine measurement (mass/volume)Ordered By: Angelo Sinclair on 02-17-2023 Creatinine (U) [Mass/Vol] 155.00 mg/dL NO RANGE EST. [facility] Whole blood hemoglobin A1c/t otal hemoglobin ratio (mass fraction)Ordered By: Angelo Sinclair on 02-17-2023 HbA1c (Bld) [Mass fraction] 6.0 % 3.8-5.6 [facility] Comment on above: Normal < 5.7 % Predi abetic 5.7 - 6.4 % Diabetic >or= 6.5 % Please note range changes. Absolute lymphocyte counton 01-10-2022 Lymphocytes Auto (Unsp spec) [#/Vol] 2.21 10*3/uL 0.83-4.51 [facility] Work Phone: Basophil percentageon 2021 Basophils/100 WBC (Bld) 0.8 % 0-1 [facility] Work Phone: Bilirubin [Mass/Vol] 0.40 mg/dL 0.20-1.00 [facility] Work Phone: Comment on above: For patients on eltr ombopag therapy, use of Dimension [place] TBIL is not recommended. Chloride [Moles/Vol] 100 mmol/L 98-107 [facility] Work Phone: Cholesterol [Mass/Vol] 268 mg/dL <200 [facility] Work Phone: Comment on above: <200 mg/dL Desirable 200-240 mg/dL Borderline >240 mg/dL High Risk Eosinophils/100 WBC (Bld) 2.7 % 0-5 [facility] Work Phone: Glucose [Mass/Vol] 178 mg/dL 74-106 [facility] Work Phone: Comment on above: Fasting Glucose resu lt greater than or equal to 126 mg/dL suggests DIABETES MELLITUS per A.D.A. criteria. Neutrophils (Bld) [#/Vol] 5.0 10*3/uL 2.0-7.7 [facility] Work Phone: Neutrophils/100 WBC (Bld) 58.8 % 47-70 [facility] Work Phone: Potassium [Moles/Vol] 4.3 mmol/L 3.5-5.1 [facility] Work Phone: Protein [Mass/Vol] 7.7 g/dL 6.4-8.2 [facility] Work Phone: Sodium [Moles/Vol] 134 mmol/L 136-145 [facility] Work Phone: Triglyceride [Mass/Vol] 343 mg/dL <199 [facility] Work Phone: Comment on above: The drugs N-Acetylcy steine and Metamizole may falsely depress this assay.Serum Triglycerides Reference Interval Normal <150 mg/dL Borderline high 150 - 199 mg/dL High 200 - 499 mg/dL Very High > or = 500 mg/dL WBC (Bld) [#/Vol] 8.5 10*3/uL 4.4-11.0 [facility] Work Phone: Blood erythrocytes count (nu mber/volume)on 01-10-2022 RBC (Bld) [#/Vol] 4.97 10*6/uL 4.6-6.2 [facility] Work Phone: Blood hemoglobin measurement (mass/volume)on 01-10-2022 Hemoglobin (Bld) [Mass/Vol] 16.1 g/dL 13.0-16.5 [facility] Work Phone: Blood lymphocytes/100 leukoc yteson 01-10-2022 Lymphocytes/100 WBC (Bld) 26.1 % 19-41 [facility] Work Phone: Blood monocytes/100 leukocyt eson 01-10-2022 Monocytes/100 WBC (Bld) 11.1 % 0-10 [facility] Work Phone: Blood platelet mean volumeon 01-10-2022 Platelet mean volume (Bld) [Entitic vol] 12.4 fL 6.2-12.0 [facility] Work Phone: Determination of erythrocyte mean corpuscular volume (MCV)on 01-10-2022 MCV (RBC) [Entitic vol] 95.0 fL 80-94 [facility] Work Phone: Hematocrit Auto (Bld) [Volum e fraction]on 01-10-2022 Hematocrit (Bld) [Volume fraction] 47.2 % 40-54 [facility] Work Phone: Laboratory - Chemistry and C hemistry - challengeon 01-10-2022 ALP [Catalytic activity/Vol] 96 U/L 45-117 [facility] Work Phone: ALT [Catalytic activity/Vol] 46 U/L 16-61 [facility] Work Phone: CO2 [Moles/Vol] 27.0 mmol/L 21.0-32.0 [facility] Work Phone: Globulin (S) [Mass/Vol] 4.4 g/dL 2.2-4.2 [facility] Work Phone: Urea nitrogen/Creatinine [Mass ratio] 12.8 mg/mg 10-20 [facility] Work Phone: Laboratory - Hematology and Cell countson 01-10-2022 Erythrocyte distribution width (RBC) [Entitic vol] 46.0 fL 35.1-43.9 [facility] Work Phone: Erythrocyte distribution width (RBC) [Ratio] 13.2 % 11.6-14.6 [facility] Work Phone: Immature granulocytes/100 WBC (Bld) 0.500 % 0.0-0.9 [facility] Work Phone: Comment on above: IG% - Immature Granu locytes (promyelocytes, myelocytes and metamyelocytes) > 1% indicates that a LEFT SHIFT is Present. MCH (RBC) [Entitic mass] 32.4 pg 27.0-32.0 [facility] Work Phone: Nucleated RBC/100 WBC (Bld) [Ratio] 0 % 0-5 [facility] Work Phone: MCHC Auto (RBC) [Mass/Vol]on 01-10-2022 MCHC (RBC) [Mass/Vol] 34.1 g/dL 32-36 [facility] Work Phone: No Panel Informationon 01-10 Estimated GFR (MDRD) Amer 82 mL/min >60 [facility] Work Phone: Comment on above: GFR Calc Estimated GFR (MDRD) Non-Af Amer 68 mL/min >60 [facility] Work Phone: Comment on above: Non- GFR Calc Prostate Specific Antigen Screen 0.75 ng/mL 0.00-4.00 [facility] Work Phone: Comment on above: This test was perfor med using the TPSA assay method for [employer] chemistry system. Values obtained with differentassay methods cannot be used interchangably.When changing PSA assays in the course of monitoring apatient, additional sequential testing should be carriedout to confirm baseline values. Platelets bldon 01-10-2022 Platelets (Bld) [#/Vol] 201 10*3/uL 150-450 [facility] Work Phone: Serum or plasma albumin estefania urement (mass/volume)on 01-10-2022 Albumin [Mass/Vol] 3.3 g/dL 3.2-5.0 [facility] Work Phone: Serum or plasma albumin/glob ulin mass ratioon 01-10-2022 Albumin/Globulin [Mass ratio] 0.8 {ratio} 0.9-2.4 [facility] Work Phone: Serum or plasma calcium estefania urement (mass/volume)on 01-10-2022 Calcium [Mass/Vol] 9.1 mg/dL 8.5-10.1 [facility] Work Phone: Serum or plasma cholesterol in HDL measurement (mass/volume)on 01-10-2022 Cholesterol in HDL [Mass/Vol] 36 mg/dL >40 [facility] Work Phone: Comment on above: The drugs N-Acetylcy steine and Metamizole may falsely depress this assay. Reference Range HDL <40 mg/dL Low HDL Cholesterol HDL >or= 60 mg/dL High HDL Cholesterol Serum or plasma cholesterol in VLDL measurement (mass/volume)on 01-10-2022 Cholesterol in VLDL [Mass/Vol] 69 mg/dL 5-40 [facility] Work Phone: Serum or plasma creatinine m easurement (mass/volume)on 01-10-2022 Creatinine [Mass/Vol] 1.17 mg/dL 0.70-1.30 [facility] Work Phone: Comment on above: The validity of the calculated GFR & GFRAA in patients over 70 years has not been determined. Clinical correlation is essential. Serum or plasma low density lipoprotein (LDL) cholesterol measurement (mass/volume)on 01-10-2022 Cholesterol in LDL [Mass/Vol] 163 mg/dL 0-130 [facility] Work Phone: Serum or plasma urea nitroge n measurement (mass/volume)on 01-10-2022 Urea nitrogen [Mass/Vol] 15 mg/dL 7-18 [facility] Work Phone: Thin prep Papanicolaou smear with manual screeningon 01-10-2022 Thin prep Papanicolaou smear with manual screening 21 U/L 15-37 [facility] Work Phone: Thin prep Papanicolaou smear with manual screening 7 5-15 [facility] Work Phone: Whole blood hemoglobin A1c/t otal hemoglobin ratio (mass fraction)on 01-10-2022 HbA1c (Bld) [Mass fraction] 8.2 % 3.8-5.6 [facility] Work Phone: Comment on above: Normal < 5.7 % Predi abetic 5.7 - 6.4 % Diabetic >or= 6.5 % Please note range changes. Vital Signs Date Time Vital Sign Value Performing Clinician Facility 12-07-2024 10:09-0400 Body height 175 cm Chance Mitan PA-C Work Phone: [facility] 12-07-2024 10:09-0400 Body height 175.26 cm Chance Mitan PA-C Work Phone: [facility] 12-07-2024 10:09-0400 Body mass index (BMI) [Ratio] 37.05 kg/m2 Chance Mitan PA-C Work Phone: [facility] 12-07-2024 10:09-0400 Body weight 114 kg Chance Mitan PA-C Work Phone: [facility] 12-07-2024 10:09-0400 Body weight 113.4 kg Chance Mitan PA-C Work Phone: [facility] 12-07-2024 10:09-0400 BP SITE #1 Chance Mitan PA-C Work Phone: [facility] 12-07-2024 10:09-0400 Diastolic blood pressure 72 mm[Hg] Chance Mitan PA-C Work Phone: [facility] 12-07-2024 10:09-0400 Heart rate 69 /min Chance Mitan PA-C Work Phone: [facility] 12-07-2024 10:09-0400 HGHTCHNVIS Chance Mitan PA-C Work Phone: [facility] 12-07-2024 10:09-0400 Systolic blood pressure 102 mm[Hg] Chance Mitan PA-C Work Phone: [facility] 12-07-2024 10:09-0400 VITALSDONE Chance Mitan PA-C Work Phone: [facility] 09-23-2024 10:38-0400 Body height 175.[address] Angelo Sinclair DO Work Phone: [facility] 04-10-2022 08:23-0500 Body height 175.[address] Angelo Sinclair Work Phone: [facility] 04-10-2022 08:23-0500 Body mass index (BMI) [Ratio] 38.9 kg/m2 Dr. Angelo Sinclair Work Phone: [facility] 04-10-2022 08:23-0500 Body temperature 98.4 [degF] Dr. Angelo Sinclair Work Phone: [facility] 04-10-2022 08:23-0500 Body weight 119.[address] Angelo Sinclair Work Phone: [facility] 04-10-2022 08:23-0500 Diastolic blood pressure 94 mm[Hg] Dr. Angelo Sinclair Work Phone: [facility] 04-10-2022 08:23-0500 Diastolic blood pressure 74 mm[Hg] Dr. Angelo Sinclair DO Work Phone: [facility] 04-10-2022 08:23-0500 Heart rate 120 /min Dr. Angelo Sinclair Work Phone: [facility] 04-10-2022 08:23-0500 Heart rate 71 /min Dr. Angelo Sinclair DO Work Phone: [facility] 04-10-2022 08:23-0500 Respiratory rate 18 /min Dr. Angelo Sinclair DO Work Phone: [facility] 04-10-2022 08:23-0500 SaO2% (BldA) [Mass fraction] 96 % Dr. Angelo Sinclair Work Phone: [facility] 04-10-2022 08:23-0500 Systolic blood pressure 138 mm[Hg] Dr. Angelo Sinclair Work Phone: [facility] 04-10-2022 08:23-0500 Systolic blood pressure 105 mm[Hg] Dr. Angelo Sinclair DO Work Phone: [facility] Encounters Encounter Date Encounter Type Care Provider Facility Start: 02-15-2025 ambulatory [facility] Facility: [facility] Start: 01-27-2025 ambulatory [facility] Facility: [facility] Start: 01-20-2025 ambulatory [facility] Facility: [facility] Start: 01-19-2025 ambulatory [facility] Facility:[facility] Start: 01-19-2025 ambulatory [facility] Facility:[facility] Start: 12-07-2024 In-person encounter Tim harris PA-C Work Phone: [facility] Work Phone: Start: 12-07-2024 Visit out of hours Tim griggs PA-C Work Phone: [employer] [facility]. Work Phone: Start: 10-11-2024 Non-patient / Non-visit Dr. Samuel MOSLEY [facility] Start: 10-11-2024 End: 10-11-[address] Angelo Sinclair DO Work Phone: -[facility] Start: 10-11-2024 End: 10-11-[address] Angelo Sinclair DO -Cardiovascular Services Work Phone: Start: 10-11-2024 End: 10-11-2024 ambulatory [facility] Facility:[facility] Start: 09-23-2024 End: 09-23-[address] Selam Mark MD -[facility] Work Phone: Start: 09-23-2024 End: 09-23-[address] Angelo Sinclair DO Work Phone: -[facility] Start: 03-25-2024 Encounter for genera l adult medical examination without abnormal findings [facility] Start: 02-23-2024 End: 02-23-2024 ambulatory Angelo Sinclair Facility:[facility] Start: 02-17-2023 End: 02-17-2023 ambulatory [facility] Work Phone: Start: 02-17-2023 End: 02-17-2023 Patient encounter procedure [facility]-Laboratory, [facility] Start: 05-08-2022 End: 05-08-[address] Angelo Sinclair Work Phone: [facility] Work Phone: Start: 05-08-2022 End: 05-08-[address] Angelo Sinclair Work Phone: [facility]-Cat Scan, [facility] Start: 04-10-2022 End: 04-10-[address] Angelo Sinclair Work Phone: [facility]-Pulmonary Medicine [facility] Start: 03-06-2022 End: 03-06-2022 ambulatory [facility] Work Phone: Start: 03-06-2022 End: 03-06-2022 Patient encounter procedure [facility]-Sleep Lab Start: 02-21-2022 End: 02-21-2022 ambulatory [facility] Work Phone: Start: 02-21-2022 End: 02-21-2022 Patient encounter procedure [facility]-Sleep Lab Start: 01-10-2022 End: 01-10-2022 Patient encounter procedure [facility]-Laboratory, [facility] Procedures Date Procedure Procedure Detail Performing Clinician Start: 12-07-2024 Blood pressure withi n normal parameters - no follow-up required Tim GRACIA-OQO Work Phone: Start: 12-07-2024 Osteoarthritis symptoms&funcjal status asses Tim GRACIA-C Work Phone: Start: 12-07-2024 BMI outside of [place] l parameters - no follow-up plan/reason not given Tim GRACIA-C Work Phone: Start: 12-07-2024 Documentation of cur rent medications Tim Lopez PA-C Work Phone: Start: 12-07-2024 Pain assessment docu mented as negative - follow-up not required Tim Lopez PA-C Work Phone: Start: 12-07-2024 Pt scrnd tobacco use rcvd tobacco cessation talk Tim Lopez PA-C Work Phone: Start: 05-08-[address] Angelo fleming Work Phone: Plan of Treatment Date Care Activity Detail Author Start: 12-07-2024 End: 12-07-2024 [employer] Work Phone: Start: 12-07-2024 Radiologic examinati on knee 3 views [facility] Work Phone: Start: 09-23-2024 Evaluation of diagno stic study results [facility] Complete blood count [facility] Comprehensive metabo lic 1999 panel - Serum or Plasma [facility] Lipid 1996 panel - S mayela or Plasma [facility] NM Heart Views W str ess and W radionuclide IV [facility] Thyroid stimulating hormone measurement [facility] Immunizations Immunization Date Immunization Notes Care Provider Licha montes 04-11-2020 Covid (Moderna) [facility] 03-14-2020 Covid (Moderna) [facility] 02-07-2020 influenza, injectabl e, quadrivalent, preservative free [facility] 02-07-2020 influenza, seasonal, injectable [facility] 02-08-2019 influenza, injectabl e, quadrivalent, preservative free [facility] 02-08-2019 influenza, seasonal, injectable [facility] 02-12-2018 influenza, injectabl e, quadrivalent, preservative free [facility] 02-12-2018 influenza, seasonal, injectable [facility] 02-12-2017 influenza, injectabl e, quadrivalent, preservative free [facility] 02-12-2017 influenza, seasonal, injectable [facility] 12-15-2015 influenza, injectabl e, quadrivalent, preservative free [facility] 12-15-2015 influenza, seasonal, injectable [facility] 12-15-2014 influenza, injectabl e, quadrivalent, preservative free [facility] 12-15-2014 influenza, seasonal, injectable [facility] 12-09-2013 influenza, injectabl e, quadrivalent, preservative free [facility] 12-09-2013 influenza, seasonal, injectable [facility] 03-25-2013 Influenza virus vaccine [facility] Payers Date Payer Category Payer Unknown [id number] 2024 Self-pay [id number] 2023 Unknown [id number] Unknown [id number] 3e [id number] Unknown [id number] 2.16.8 [id number] Unknown [id number] 2.16.8 [id number] Unknown [id number] 2.16.8 [id number] Unknown [id number] 2.16.8 [id number] Unknown [id number] 2.16.8 [id number] Unknown [id number] 2.16.8 [id number] Unknown [id number] 2.16.8 [id number] Unknown [id number] 2.16.8 [id number] Unknown [id number] 2.16.8 [id number] Social History Date Type Detail Facility Start: 12-27-2019 End: 04-10-2022 Tobacco smoking status NHIS Unknown if ever smoked [facility] Start: 12-10-2019 Cigarettes [facility] Start: 1965 Sex Assigned At Male [facility] Start: 04-10-2022 Tobacco smoking stat us NHIS Smokes tobacco daily (finding) [facility] Start: 12-07-2024 social history revie wed E&M Done [employer] Work Phone: Start: 12-07-2024 smoking/tobacco cessation, patient education and counseling Smoking cessation education (procedure) [employer] Work Phone: Medical Equipment Procedure Code Equipment Code Equipment [...] MESH,VENTLEX ST SM 4.3CM FDA Start: 12-20-2019 Functional Status Date Assessment Result Facility 12-07-2024 Functional Status without [employer] Work Phone: 12-07-2024 dependent [employer] Work Phone: Evaluation note 09-23-2024 Note Date & Type Note Facility 09-23-2024 Evaluation note Diagnosis Onset Date Resolution Atrial flutter chronic September 23, 2024 10:28am COPD (chronic obstructive pulmonary disease) chronic September 23 10:28am Coronary atherosclerosis chronic September 23, 2024 10:28am Diabetes chronic September 23 10:28am Dyslipidemia chronic September 23, 025 10:28am Dyspnea on exertion chronic September 23, 2024 10:28am Essential hypertension chronic Ju ly 2024 10:28am Obesity chronic September 23 10:28am TRAN (obstructive sleep apnea) chronic September 23, 2024 10:28am [facility] Work Phone: Evaluation note Note Date & Type Note Facility Evaluation note No assessment information availa ble [facility] Work Phone: Evaluation note Note Date & Type Note Facility Evaluation note Diagnosis Onset Date BMI 38.0-38.9,adult acute TRAN (obstructive sleep apnea) acute Smoking greater than 20 pack years [facility] Work Phone: Evaluation note Note Date & [...] September 23, 2024 10:28am Essential hypertension chronic Ju ly 2024 10:28am [employer] Work Phone: Reason for referral (narrative) Note Date & Type Note Facility Reason for referral (narrative) No reason for referral information available [facility] Work Phone: Chief Complaint and Reason for [...] Essential hypertension September 23, 2024 1 0:28am Chief Complaint Admit Date Atrial fibrillation September 23, 2024 10:2 8am KNOWN CAD, NEW ONSET AFIB/AFLUTTER October 11, 2024 2:58pm Reason for Visit Admit Date Atrial flutter September 23, 2024 10:2 8am COPD (chronic obstructive pulmonary dise ase) September 23, 2024 10:28am Coronary atherosclerosis September 23, 2024 10:28am Diabetes September 23, 2024 10:2 8am Dyslipidemia September 23, 2024 10:2 8am Dyspnea on exertion September 23, 2024 10:2 8am Essential hypertension September 23, 2024 1 0:28am Obesity September 23, 2024 10:2 8am TRAN (obstructive sleep apnea) September 23, 2024 10:28am Advance Directives No Advanced Directives Records Found Advance Directive Response Recorded Date/ Time Living Will No December 10, 2019 7:19am Power of New Car Driver No November 7:19am Family History No Family History Records Found Family Member Condition Father Mother Cancer Mother Summary Purpose Additional Source Comments Goals (unrecognized section and content) Goals may be documented in a n alternate sectionGoals may be documented in an alternate sectionGoals may be documented in an alternate sectionGoals may be documented in an alternate sectionGoals may be documented in an alternate section No Information Available Care Teams (unrecognized sec tion and content) Team Status: Active Member Role Status Dates Dr. Angelo Sinclair DO Family Provider Active Dr. Angelo Sinclair DO Primary Care Provider Active Team Status: Inactive Member Role Status Dates Dr. Angelo Sinclair DO Primary Care Provider, Referrin g Provider Active Margarita Grider PEDIATRIC DERMATOLOGIST, PEDIATRIC DERMATOLOGIST-C Attending Provider Active Team Status: Inactive Member Role Status Dates Dr. Angelo Sinclair DO Primary Care Prov ider, Attending Provider, Referring Provider Active Team Status: Inactive Member Role Status Dates Dr. Angelo Sinclair DO Primary Care Provider Active Margarita Grider PEDIATRIC DERMATOLOGIST, PEDIATRIC DERMATOLOGIST-C Attending Provider, Referrin g Provider Active Team [...] September 23, 2024 End: September 23, 2024 Team Status: Inactive Member Role/Relationship Status Dates Dr. Angelo Sinclair DO Primary Care Provider Active Start: October 11, 2024 End: October 11, 2024 Dr. Angelo Sinclair DO Attending Provider Active Start: October 11, 2024 End: October 11, 2024 Dr. Angelo Sinclair DO Referring Provider Active Start: October 11, 2024 End: October 11, 2024 Dr. Selam Mark MD Other Provider Active Star t: October 11, 2024 End: October 11, 2024 Team Status: Active Member Role/Relationship Status Dates Dr. Angelo Sinclair DO Primary Care Provider Active Start: October 11, 2024 Dr. Salas Wood MD Attending Provider Active S tart: October 11, 2024 REASON FOR VISIT (unrecogniz ed section and content) right knee post Right total knee arthroplasty using the Benjy robot on 11/24/2023, Postop - subsequent visit (unrecognized sect ion and content) No Status Records Found INFORMATION SOURCE (unrecogn ized section and content) DATE CREATED AUTHOR 01/26/2025 [facility] FOR RECORDS PERTAINING TO PATIENTS WHO ARE [...] BE BASED ON THE PRIMARY CLINICAL RECORDS. [employer] provides no warranty or guarantee of the accuracy or completeness of information in this document.
== END | disposition home or self-care (01) ==
LOC: SL 20:04
PROVIDERS: PCP Family Medicine; Referring Provider Family Medicine; Visit Provider Family Medicine
DX: G47.33 Obstructive sleep apnea (adult) (pediatric) (principal)
CPT/HCPCS: 95811

== ENCOUNTER 2025-02-15 09:28 | Day surgery (SDC) | payer OTHER, SELFPAY ==
--- NOTE | 2025-02-08 08:30 | RAD_ITS ---
PROCEDURE: CHEST PA AND LATERAL 02/08/2025 REASON FOR EXAM: CARDIAC CATHETERIZATION TECHNIQUE: Procedure Code: RADCXR Modality: DX Procedure: CHEST PA AND LATERAL COMPARISON: 08 May 2022 FINDINGS: The lungs are adequately aerated bilaterally with central vascular and interstitial prominence throughout. Atheromatous changes of the aorta with cardiomegaly. No pleural effusion or pneumothorax. Degenerative changes of the shoulders and spine. RAD/Chest PA and Lateral IMPRESSION: Cardiomegaly with venous congestion and probable interstitial edema which can b e seen with CHF exacerbation. Reading Location: [id number]
[2025-02-08 09:19] LABS: Hematocrit 47.8 % (40-54); Hemoglobin 15.4 g/dL (13.0-16.5); Immature Granulocytes Count 0.070 X10^3/uL (0.0-0.0); Mean Corp Hgb Conc 32.2 g/dL (32-36); Mean Corpuscular Volume 93.9 fL (80-94); Mean Platelet Vol. 11.1 fl (6.2-12.0); NRBC Flagged by Analyzer 0 % (0-5); Platelet Count 227 K/mm3 (150-450); RBC Distribution Width CV 14.8 % (11.6-14.6); RBC Distribution Width SD 51.0 fl (35.1-43.9); Red Blood Count 5.09 M/mm3 (4.6-6.2); White Blood Count 9.4 K/mm3 (4.4-11.0)
[2025-02-08 10:45] LABS: AST(SGOT) 31 U/L (<=37); Alanine Aminotransfer ALT/SGPT 37 U/L (<=46); Albumin, Serum 4.1 g/dL (3.4-4.8); Alkaline Phosphatase 119 U/L (40-129); Anion Gap 13 (5-15); BUN 17 mg/dL (4-19); BUN/Creat Ratio 20.2 RATIO (10-20); Calcium,Total 9.9 mg/dL (7.6-11.0); Carbon Dioxide 27.4 mmol/L (21.0-32.0); Chloride 97 mmol/L (98-108); Cholesterol 120 mg/dL (<=200); Globulin 4.4 g/dL (2.2-4.2); Glucose 141 mg/dL (70-99); Low Density Lipoprotein Calc. 60 mg/dL; Potassium 4.6 mmol/L (3.3-5.1); Triglycerides 84 mg/dL; Very Low Density Lipoprotein 17 mg/dL (5-40); cholesterol:hdl ratio screen 2.77
--- NOTE | 2025-02-08 15:18 | HP.PCM_ITS ---
History and Physical Date of Admission: 02/15/25 This is a 59-year-old male who presents today for cardiac catheterization, following an abnormal stress test. He has a past medical history significant for COPD, nicotine dependence, obesity and hypertension. Also history of diabetes mellitus and dyslipidemia. He recently presented to his PCPs office for complaints of shortness of breath with exertion. He has had an EKG done. It showed atrial flutter with rapid ventricular response. Subsequently he was started on diltiazem and apixaban. He is here to establish cardiac care with us. Patient denies any previous history of heart disease. Denies any chest pains either at rest or with exertion. His shortness of breath with exertion has improved since starting on diltiazem but not completely resolved. Denies orthopnea or PND. No ankle edema. Per patient, he has never been checked for sleep apnea but thinks that he may have it. Denies any palpitations. No lightheadedness or dizziness. No syncope or presyncope. No history of bleeding disorders. No history of CVA or TIA. No history of frequent falls. Intake Vital Signs See EMR Allergies See EMR Medications See EMR [facility] Medical History COPD (chronic obstructive pulmonary disease) Atrial flutter Emphysema lung Coronary atherosclerosis Hypertriglyceridemia Essential hypertension Type 2 diabetes mellitus without complication Iliotibial band tendonitis of left side Arthritis Surgical History History of bilateral knee replacement History of umbilical hernia repair (~2019) Family History Mother Cancer Lymphoma Social History Smoking Status: Current every day smoker alcohol intake: current Alcohol type: beer substance use type: does not use ROS Const Const: Negative for fatigue or weakness Eyes Eyes: Negative for change in vision ENT ENT: Negative for dizziness or balance problems Cardio Chest Pain: No Palpitations: No Edema: None Resp Respiratory: Positive for SOB with activity; Negative for SOB at rest or SOB orthopnea\SOB lying down GI GI: Negative nausea or heartburn Musc Musc: Negative for balance problems Neuro Neuro: Negative for dizziness, lightheadedness, near syncope, syncope or weakness Endo Endo: Negative for fatigue Cardiology Exam Exam Narrative Comfortable. No apparent distress. Obese. Neck pain examination is difficult because of body habitus. Heart sounds 1 and 2 noted. 2/6 systolic murmur at base. Chest clear to auscultation bilaterally. Alert oriented x 3. No ankle edema. Supplemental Info Supplemental Information Assessment and Plan Assessment and Plan (1) Abnormal Stress Test: Patients stress test from 01/19/2025 was noted to be abnormal. Will proceed with a cardiac catheterization to further assess this. Depending on results, further recommendations will be made. (2) Dyspnea on exertion: Status: Chronic Plan: (3) Coronary atherosclerosis: Status: Chronic Plan: Coronary calcifications noted as an incidental finding on CT scan of the chest. His stress test from 01/19/2025 was noted to be abnormal. Will proceed with a cardiac catheterization to further assess this. Depending on results, further recommendations will be made.
[2025-02-14 10:27] VITALS: BMI 38.9
[2025-02-15 12:10] LABS: ACT Activated Clotting Time 240 sec (74-137)
[2025-02-15 12:10] LABS: ACT Activated Clotting Time 255 sec (74-137)
--- NOTE | 2025-02-15 12:29 | CL.D_ITS ---
Patient Name: MELISSA CAROLINA Study Date: 02/15/2025 Performing: Selam Mark MD Ht: 69 inches 175.26 cm : 1965 Wt: 264 lbs 119.75 kg Age: 59 Gender: male BSA: 2.32 PROCEDURE(S) PERFORMED DC02-(37826)LHC/COR IC08-([id number])IVUS, CORONARY OR GRAFT, INITIAL VESSEL IC10-(10421)FFR, CORONARY OR GRAFT, INITIAL VESSEL IC09-(21742)IVUS, CORONARY OR GRAFT, EACH ADD'L VESSEL CLINICAL PROFILE AND INDICATIONS Indications: Suspected CAD Heart Failure: None Stress/Imaging Stress Test w/SPECT MPI: Yes Result: Positive Intermediate RiskStress Test with SPECT MPI: Positive Intermediate Risk Angina Classification Anginal Classification w/in 2 Weeks: Anginal Equivalent Dyspnea CONCLUSIONS 70% Mid LAD on IVUS (iFR 0.90) 70% Prox D1, 90% Prox D2 80% Mid LCX, SKEIN MERCERIZING MACHINE OPERATOR distal LCX (dominant); LPDA filling retrograde via collaterals RECOMMENDATIONS Consult CTS for CABG DESCRIPTION OF PROCEDURE The patient arrived to the procedure lab. The risks and benefits of the procedure as well as a full description of our services here and current unavailability of surgical backup were fully explained to the patient and/or their significant other prior to the catheterization. The Timeout was completed, verifying the correct patient and procedure. The patient's procedural site was prepped and draped in the usual fashion. Local anesthetic was given subcutaneously to right radial region with Lidocaine 2%. Using a modified Seldinger technique, and ultrasound guidance,arterial access was obtained via the right radial artery, a 6Fr sheath was inserted. Right Coronary Artery selective angiography was then performed in multiple views using a 5 Fr. JR 4 catheter.The arterial sheath was pulled and a TR Band was applied for hemostasis - 10 air CORONARY ANGIOGRAPHY DOMINANCE: Left Dominant LEFT MAIN: Mild CAD on IVUS LEFT ANTERIOR DESCENDING ARTERY: LAD: Calcified 70% Mid lesion in LAD DIAGONAL 1: Tubular 70% Proximal lesion in DIAG1 DIAGONAL 2: Tubular 90% Proximal lesion in DIAG2 OM 1: Tubular 80% Proximal lesion in MARG2 Tubular 70% Proximal lesion in MARG1 OM 2: Tubular 80% Proximal lesion in MARG2 Tubular 70% Proximal lesion in MARG1 COLLATERAL FLOW: Collateral flow from SEP to LF PDA COMPLICATIONS No Complications PROCEDURE MEDICATIONS Fentanyl 50 mcg IV Versed 1 mg IV Oxygen: 2 L/min via nasal cannula Oxygen: 4 L/min via nasal cannula Cardizem 20 mg IV 02/15/2025 11:05:17 Heparin 7000 unit(s) IV 02/15/2025 11:18:41 SUMMARY OF HEMODYNAMIC DATA Time AIR REST ECG 10:52:52 AO 98/61 (78) SA 11:06:50 AO 106/71 (86) 11:08:14 AO 117/69 (84) 11:30:04 Signed By Selam Mark MD On 02/15/2025 12:28:34 Selam Mark MD
--- NOTE | 2025-02-18 09:40 | CRPHASE1 ---
Patient Communication Patient Information Former Patient:: Phase I PHII Cardiac Rehab Discussed with Patient:: Yes Guide to Cardiac Rehab Given to Patient:: Yes Cardiac Rehab Facility Choice List Given to Patient:: Yes Communication to Cardiac Rehab Tester Compressed Gases:: Selam Mark Sessions:: 36 sessions - 3 days/wk, 12 weeks Cardiac Rehabilitation Info Program Information Cardiac Rehabilitation Program Information: Cardiac Rehab The cardiac rehab team at [facility] consists of highly skilled exercise physiologists, nurses, respiratory therapists and physicians working together with you. Our purpose is to help you have a full recovery and achieve the goals you set for yourself. Over the years many of our patients have returned to activities they assumed they would never do again! We can help restore your confidence and motivation to make lifestyle changes that can have a significant impact on your health and quality of life! We can help answer questions and concerns you may have about exercise, lifestyle, medications, diet, stress and anxiety which are common following a hospitalization. WE monitor ECG and vital signs during exercise and discuss your progress with you and report to your physician(s). Cardiac Rehab is proven to help reduce readmissions, improve functional capacity and lower recurrence of problems with your heart. Our Cardiac Rehab program is Certified by the [place] [employer]monary [employer] (AACVPR) and Accredited by the [employer] [employer] through our [facility]. You can contact us at . We invite you to call us with your questions or to get started in our program. If you have other questions or concerns be sure to ask your physician/provider during your follow-up visit. WE look forward to seeing you!
--- NOTE | 2025-02-18 09:41 | CRPH1.INST_ITS ---
General Education Discussed with Patient CAD and cardiac anatomy and function:: Patient communicates acknowledgment Explanation of diagnoses and procedures:: Patient communicates acknowledgment Sign/Symptoms of HI:: Patient communicates acknowledgment Antiplatelet therapy: Patient communicates acknowledgment Proper use of NTG-SL: Patient communicates acknowledgment Emergency procedures and activation of EMS: Patient communicates acknowledgment Compliance of all prescribed medications: Patient communicates acknowledgment Smoking Risk Factors Patient Nicotine/Smoking Risk Factors Are:: Cigarettes and Second-hand smoke Recommendations Recommendations Include:: Smoking cessation strategies/Smoking packet, Second- hand smoke recommendation, Participation in a smoking cessation program and Previous smoker; encourage continued cessation Response Code Nicotine/Smoking Response Code:: Patient communicates acknowledgment Dyslipidemia Risk Factors Patient Dyslipidemia Risk Factors Are:: Total Cholesterol, Triglycerides, HDL and LDL Recommendations Recommendations Include:: Lipid profile not available, Reviewed NCEP/ATP guidelines and Therapeutic Lifestyle Change dietary guidelines Response Code Dyslipidemia Response Code:: Patient communicates acknowledgment Overweight/Obesity Risk Factors Patient Overweight/Obesity Risk Factors Are:: BMI Normal [24-29 & > 65 years old] and Overweight = 26-29 Recommendations Recommendations Include:: Weight loss of 5-10%, Reduced calorie diet and Exercise 5-7 times/week Response Code Overweight/Obesity:: Patient communicates acknowledgment Hypertension Recommendations Recommendations Include:: DASH dietary guidelines, Decrease/maintain normal body weight and Moderation of ETOH Response Code Hypertension:: Patient communicates acknowledgment Heart Disease Risk Factors Patient Heart Disease Risk Factors Are:: Family history of heart disease < 65 years old Recommendations Recommendations Include:: Educated family members of their risk and Educated family members of importance of prevention of heart disease Response Code Heart Disease Response Code:: Patient communicates acknowledgment Diabetes Risk Factors Patient Diabetes Risk Factors Are:: Elevated blood sugars and Post-op hyperglycemia Recommendations Recommendations Include:: Maintain fasting blood sugars 70-110 md/dL, Maintain HgbA1c of 6% or less, Monitor blood sugar as prescribed, Diabetic dietary guidelines and Decrease/maintain body weight Response Code Diabetes:: Patient communicates acknowledgment Metabolic Syndrome Risk Factors Patient Metabolic Syndrome Risk Factors Are [3 of 5]:: Fasting blood sugar > 100 mg/dL, Waist circumference > 35" [female] or 40" [male], High triglyceride >150 and Hypertension Recommendations Recommendations Include:: Reinforce compliance to risk factor modifications, Patient is diabetic and Encouraged follow-up with Primary Care Physician Response Code Metabolic Syndrome Response Code:: Patient communicates acknowledgment Sedentary Risk Factors Patient Sedentary Risk Factors Are:: Lack of regular exercise Recommendations Recommendations Include:: Aerobic exercise 5-7 times/week for 20-30 minutes continuously, Benefits of regular exercise, Discussed home walking program and Monitored Outpatient Cardiac Rehab Response Code Sedentary Response Code:: Patient communicates acknowledgment Stress Risk Factors Patient Stress Risk Factors Are:: Patient denies stress as a risk factor Recommendations Recommendations Include:: Identification of stressors, and assessment of coping skills and Stress management techniques Response Code Stress Response Code:: Patient communicates acknowledgment
== END 2025-02-15 14:51 | disposition home or self-care (01) ==
PROVIDERS: Nurse Practitioner Gerontology; PCP Family Medicine; Referring Provider Internal Medicine Cardiovascular Disease; Visit Provider Internal Medicine Cardiovascular Disease
DX: I25.10 Atherosclerotic heart disease of native coronary artery without angina pectoris (principal); J43.9 Emphysema, unspecified; E11.9 Type 2 diabetes mellitus without complications; I10 Essential (primary) hypertension; R94.39 Abnormal result of other cardiovascular function study; F17.200 Nicotine dependence, unspecified, uncomplicated; E66.9 Obesity, unspecified; E78.5 Hyperlipidemia, unspecified; Z79.01 Long term (current) use of anticoagulants; R06.09 Other forms of dyspnea
CPT/HCPCS: 36415; 71046; 80053; 80061; 84443; 85025; 85347; 92978; 92979; 93454; 93571; 99152; 99153; C1887; C1894; Q9967; C1753; C1769

== ENCOUNTER 2025-02-17 09:20 | Observation (INO) | payer OTHER, SELFPAY ==
[2025-02-16 15:26] VITALS: BMI 38.9
--- NOTE | 2025-02-16 17:03 | HP.PCM_ITS ---
History and Physical Date of Admission: 02/17/25 This is a 59-year-old male who presents today for PCI following an abnormal stress test. He has a past medical history significant for COPD, nicotine dependence, obesity and hypertension. Also history of diabetes mellitus and dyslipidemia. He recently presented to his PCPs office for complaints of shortness of breath with exertion. He has had an EKG done. It showed atrial flutter with rapid ventricular response. Subsequently he was started on diltiazem and apixaban. Patient denies any previous history of heart disease. Denies any chest pains either at rest or with exertion. His shortness of breath with exertion has improved since starting on diltiazem but not completely resolved. Denies orthopnea or PND. No ankle edema. Per patient, he has never been checked for sleep apnea but thinks that he may have it. Denies any palpitations. No lightheadedness or dizziness. No syncope or presyncope. No history of bleeding disorders. No history of CVA or TIA. No history of frequent falls. He underwent a diagnostic heart cath on 02/15/2025, this demonstrated: 70% Mid LAD on IVUS (iFR 0.90) 70% Prox D1, 90% Prox D2 80% Mid LCX, VOLUNTEER SERVICES COORDINATOR distal LCX (dominant); LPDA filling retrograde via collaterals Dr. Mark consulted Dr. Andersen about CT surgery versus stenting. Dr. Andersen felt that patient would benefit from stenting to his circumflex and his diagonal. He is scheduled for a staged PCI Intake Vital Signs See EMR Allergies See EMR Medications See EMR [facility] Medical History COPD (chronic obstructive pulmonary disease) Atrial flutter Emphysema lung Coronary atherosclerosis Hypertriglyceridemia Essential hypertension Type 2 diabetes mellitus without complication Iliotibial band tendonitis of left side Arthritis Surgical History History of bilateral knee replacement History of umbilical hernia repair (~2019) Family History Mother Cancer Lymphoma Social History Smoking Status: Current every day smoker alcohol intake: current Alcohol type: beer substance use type: does not use ROS Const Const: Negative for fatigue or weakness Eyes Eyes: Negative for change in vision ENT ENT: Negative for dizziness or balance problems Cardio Chest Pain: No Palpitations: No Edema: None Resp Respiratory: Positive for SOB with activity; Negative for SOB at rest or SOB orthopnea\SOB lying down GI GI: Negative nausea or heartburn Musc Musc: Negative for balance problems Neuro Neuro: Negative for dizziness, lightheadedness, near syncope, syncope or weakness Endo Endo: Negative for fatigue Cardiology Exam Exam Narrative Comfortable. No apparent distress. Obese. Neck pain examination is difficult because of body habitus. Heart sounds 1 and 2 noted. 2/6 systolic murmur at base. Chest clear to auscultation bilaterally. Alert oriented x 3. No ankle edema. Supplemental Info Supplemental Information Assessment and Plan Assessment and Plan (1) Abnormal Stress Test: (2) Dyspnea on exertion: Status: Chronic Plan: (3) Coronary atherosclerosis: Status: Chronic Plan: Patient will undergo a staged PCI.
[2025-02-17] VITALS (13 sets, daily range): BP systolic 100–141; BP diastolic 62–93; PULSE 54–68; RESP 16–118; TEMP 36.4–36.7; O2SAT 91–95
--- OUTSIDE RECORDS SUMMARY | 2025-02-17 07:03 | XMS RPT_ITS | CCD ---
Author Organization [facility] Care Team Providers Care Sales Systems Engineer Name Role Phone Dr. Angelo Sinclair Primary Care Provider Dr. Angelo Sinclair Referring Provider Cheo GRAVES, RADHA Avila Attending Provider Dr. Angelo Sinclair DO Primary Care Provider [phone] Dr. Angelo Sinclair DO Referring Provider Jas MOSLEY, Dr. Doss Attending Provider Dr. Angelo Sinclair DO Attending Provider Dr. Selam Mark MD Other Provider [phone] Israel MOSLEY, Dr. Marina Attending Provider Jessica MEJÍA, Tim Cuevas Unavailable [phone] NONE, NONE Unavailable Unavailable Angelo Sinclair DO Unavailable [phone] Angelo Sinclair Primary Care Unavailable Angelo Sinclair Attending Unavailable Angelo Sinclair Referring Unavailable Jas, Selam Referring Unavailable Angelo Sinclair Primary Care Unavailable JasSelam Attending Unavailable JasSelam Consulting Unavailable Angelo Sinclair Primary Care Unavailable [...] Drug Class(es) Dates Sig (Normalized) Sig (Original) [id number] 200 actuat albuterol 0.09 mg/actuat metered dose inhaler (1 source) beta2-Adrenergic Agonist albuterol sulfate HFA 90 mcg/actuation aerosol inhaler active Arnold Macedo [facility] apixaban 5 mg oral tablet (3 sources) [...] mouth twice a day active Randa Cuenca [facility] citalopram 20 mg oral [...] capsule,extended release 24 hr active Arnold Macedo [facility] hydroCHLOROthiazide 25 mg / lisinopril 20 mg [...] mouth once a day active Randaraisa Cuenca [facility] [place] [facility] Completed/Discontinued Medications Medication [...] 2 Receptor Sanjay Start: 03-19-2013 End: 12-06-2019 Telmisartan-[place] chlorothiazid 1 EACH tablet Discontinued 1 NMA [...] Coronary atherosclerosis; Translations: [Atherosclerotic heart disease of lummi coronary artery without angina pectoris] Onset: 5 [...] Range Facility Stress Reporton 01-19-2025 Stress Report [facility] [address] [place] [address] MR#: [id number] Acct: [id number] Name: MELISSA CAROLINA Rep #: [id number] : 1965 59 From: Selam Mark MD [...] inferior wall. This note was generated with [employer] dictation software. It may contain incorrect words, spelling, and punctuation that were not noted in checking the note before signing. 01/19/25 1440 Date Selam Mark MD CC: Dr. Selam Mark MD; Dr. Angelo Sinclair, Date Dictated: 01/19/251437 Date Transcribed: 01/19/251437 Battery Service Technician: ALBERT Signed Normal [facility] Relevant diagnostic tests/la boratory data Narrativeon 12-07-2024 Fall risk assessment no CRISS [employer] Work Phone: MEDS REVIEW Documentation of current medications (procedure) [employer] Work Phone: MEDS REVIEWD Medications reviewed without changes [employer] Work Phone: Echo Completeon 10-11-2024 Echo Complete [facility] [address] [place] [address] Echo Complete 10/11/24 1507 MR#: [id number] Acct: [id number] Name: MELISSA CAROLINA Rep #: [id number] : 1965 59 From: Salas Wood MD Attending Dr: Dr. Angelo Sinclair, Status: REG CLI Ordering Dr: Angelo Sinclair DO Date: 10/11/24 Location: [facility] Sex: M C Admitted: Reason For Study [...] Dictated: 10/11/24 1507 Date Transcribed: 10/11/24 1604 Battery Service Technician: Signed Normal [facility] Echocardiogram study reportO rdered By: Salas Wood on 10-11-2024 Study report [facility] [place] [address] Echo Complete 10/11/24 1507 MR#: [id number] Acct: [id number] Name: MELISSA CAROLINA Rep #:[id number] : 1965 59 From: Salas Bautista Attending Dr: Dr. Angelo Sinclair, DO Status: REG CLI Ordering Dr: Angelo Sinclair DO Date: 10/11/24 Location: [facility] Sex: M C Admitted: Reason For Study [...] Dictated: 10/11/24 1507 Date Transcribed: 10/11/24 1604 Battery Service Technician: Signed [facility] Work Phone: Cardiology Visit Reporton Cardiology Visit Report [facility] [address] [place] [address] OFFICE VISIT Date of Service: 09/23/24 MR#: [id number] Acct: [id number] Name: MELISSA CAROLINA Rep #: [id number] : 1965 Provider: Dr. Selam Mark MD Age/Sex: 58/M Location: [facility] Status: Signed HPI HPI History of Present [...] Coronary atherosclerosi (more content not included)... Normal [facility] CBC W/Diff, Automatedon 12-0 Absolute Lymph 2.31 X10 3/uL Normal 0.83-4.51 [facility] Comment on above: Performed By: #### L 501.9910, L500.4050, L502.0250, L100.0100, L500.4100, L501.9985 #### [facility] [address] [place], [address] Absolute Neut 5.5 X10 3/uL Normal 2.0-7.7 [facility] Comment on above: Performed By: #### L 501.9910, L500.4050, L502.0250, L100.0100, L500.4100, L501.9985 #### [facility] [address] [place], [address] Basophils/100 WBC (Bld) 0.7 % Normal 0-1 [facility] Comment on above: Performed By: #### L 501.9910, L500.4050, L502.0250, L100.0100, L500.4100, L501.9985 #### [facility] [address] [place], [address] Eosinophils/100 WBC (Bld) 1.3 % Normal 0-5 [facility] Comment on above: Performed By: #### L 501.9910, L500.4050, L502.0250, L100.0100, L500.4100, L501.9985 #### [facility] [address] [place], [address] Erythrocyte distribution width (RBC) [Ratio] 13.5 % Normal 11.6-14.6 [facility] Comment on above: Performed By: #### L 501.9910, L500.4050, L502.0250, L100.0100, L500.4100, L501.9985 #### [facility] [address] [place], [address] Hematocrit (Bld) [Volume fraction] 46.9 % Normal 40-54 [facility] Comment on above: Performed By: #### L 501.9910, L500.4050, L502.0250, L100.0100, L500.4100, L501.9985 #### [facility] [address] [place], [address] Hemoglobin (Bld) [Mass/Vol] 15.2 g/dL Normal 13.0-16.5 [facility] Comment on above: Performed By: #### L 501.9910, L500.4050, L502.0250, L100.0100, L500.4100, L501.9985 #### [facility] [address] [place], [address] IG% 0.400 Normal 0.0-0.9 [facility] Comment on above: Result Comment: IG% - Immature Granulocytes (promyelocytes, myelocytes and metamyelocytes) > 1% indicates that a LEFT SHIFT is Present. Performed By: #### L 501.9910, L500.4050, L502.0250, L100.0100, L500.4100, L501.9985 #### [facility] [address] [facility] [place], [address] Lymphocytes/100 WBC (Bld) 25.2 % Normal 19-41 [facility] Comment on above: Performed By: #### L 501.9910, L500.4050, L502.0250, L100.0100, L500.4100, L501.9985 #### [facility] [address] [place], [address] MCH (RBC) [Entitic mass] 29.9 pg Normal 27.0-32.0 [facility] Comment on above: Performed By: #### L 501.9910, L500.4050, L502.0250, L100.0100, L500.4100, L501.9985 #### [facility] [address] [place] [place], [address] MCHC (RBC) [Mass/Vol] 32.4 g/dL Normal 32-36 [facility] Comment on above: Performed By: #### L 501.9910, L500.4050, L502.0250, L100.0100, L500.4100, L501.9985 #### [facility] [address] [place] [place], [address] MCV (RBC) [Entitic vol] 92.3 fL Normal 80-94 [facility] Comment on above: Performed By: #### L 501.9910, L500.4050, L502.0250, L100.0100, L500.4100, L501.9985 #### [facility] [address] [place] [place], [address] Monocytes/100 WBC (Bld) 12.1 % High 0-10 [facility] Comment on above: Performed By: #### L 501.9910, L500.4050, L502.0250, L100.0100, L500.4100, L501.9985 #### [facility] [address] [place], [address] Neutrophils/100 WBC (Bld) 60.3 % Normal 47-70 [facility] Comment on above: Performed By: #### L 501.9910, L500.4050, L502.0250, L100.0100, L500.4100, L501.9985 #### [facility] [address] [place], [address] Nucleated RBC (Bld) [#/Vol] 0 10*3/uL Normal 0-5 [facility] Comment on above: Performed By: #### L 501.9910, L500.4050, L502.0250, L100.0100, L500.4100, L501.9985 #### [facility] [address] [place], [address] Platelet mean volume (Bld) [Entitic vol] 11.3 fL Normal 6.2-12.0 [facility] Comment on above: Performed By: #### L 501.9910, L500.4050, L502.0250, L100.0100, L500.4100, L501.9985 #### [facility] [address] [place] [place], [address] Platelets (Bld) [#/Vol] 200 10*3/uL Normal 150-450 [facility] Comment on above: Performed By: #### L 501.9910, L500.4050, L502.0250, L100.0100, L500.4100, L501.9985 #### [facility] [address] [facility] [place], [address] RBC (Bld) [#/Vol] 5.08 10*6/uL Normal 4.6-6.[address] [facility] Comment on above: Performed By: #### L 501.9910, L500.4050, L502.0250, L100.0100, L500.4100, L501.9985 #### [facility] [address] [place], [address] RDW SD 46.1 fl High 35.1-43.9 [facility] Comment on above: Performed By: #### L 501.9910, L500.4050, L502.0250, L100.0100, L500.4100, L501.9985 #### [facility] [address] [place], [address] WBC (Bld) [#/Vol] 9.2 10*3/uL Normal 4.4-11.0 [facility] Comment on above: Performed By: #### L 501.9910, L500.4050, L502.0250, L100.0100, L500.4100, L501.9985 #### [facility] [address] [place], [address] Comprehensive Metabolic Prof ilon 02-23-2024 Albumin [Mass/Vol] 3.6 g/dL Normal 3.2-5.0 [facility] Comment on above: Performed By: #### L 501.9910, L500.4050, L502.0250, L100.0100, L500.4100, L501.9985 #### [facility] [address] [place], [address] Albumin/Globulin [Mass ratio] 0.8 {ratio} Low 0.9-2.4 [facility] Comment on above: Performed By: #### L 501.9910, L500.4050, L502.0250, L100.0100, L500.4100, L501.9985 #### [facility] [address] [place], [address] ALK P 102 U/L Normal 45-117 [facility] Comment on above: Performed By: #### L 501.9910, L500.4050, L502.0250, L100.0100, L500.4100, L501.9985 #### [facility] [address] [place], [address] ALT [Catalytic activity/Vol] 49 U/L Normal 16-61 [facility] Comment on above: Performed By: #### L 501.9910, L500.4050, L502.0250, L100.0100, L500.4100, L501.9985 #### [facility] [address] [place], [address] AST [Catalytic activity/Vol] 31 U/L Normal 15-37 [facility] Comment on above: Performed By: #### L 501.9910, L500.4050, L502.0250, L100.0100, L500.4100, L501.9985 #### [facility] [address] [place], [address] Bilirubin [Mass/Vol] 0.50 mg/dL Normal 0.20-1.00 [facility] Comment on above: Result Comment: For patients on eltrombopag therapy, use of Dimension D Lo TBIL is not recommended. Performed By: #### L 501.9910, L500.4050, L502.0250, L100.0100, L500.4100, L501.9985 #### [facility] [address] [place], [address] BUN/CRE 16.0 RATIO Normal 10-20 [facility] Comment on above: Performed By: #### L 501.9910, L500.4050, L502.0250, L100.0100, L500.4100, L501.9985 #### [facility] [address] [place], [address] CA,Total 9.9 mg/dL Normal 8.5-10.1 [facility] Comment on above: Performed By: #### L 501.9910, L500.4050, L502.0250, L100.0100, L500.4100, L501.9985 #### [facility] [address] [place], [address] Chloride [Moles/Vol] 101 mmol/L Normal 98-107 [facility] Comment on above: Performed By: #### L 501.9910, L500.4050, L502.0250, L100.0100, L500.4100, L501.9985 #### [facility] [address] [place], [address] CO2 [Moles/Vol] 29.0 mmol/L Normal 21.0-32.0 [facility] Comment on above: Performed By: #### L 501.9910, L500.4050, L502.0250, L100.0100, L500.4100, L501.9985 #### [facility] [address] [place], [address] Creatinine [Mass/Vol] 0.94 mg/dL Normal 0.70-1.30 [facility] Comment on above: Result Comment: The validity of the calculated GFR GFRAA in patients over 70 years has not been determined. Clinical correlation is essential. Performed By: #### L 501.9910, L500.4050, L502.0250, L100.0100, L500.4100, L501.9985 #### [facility] [address] [place], [address] EST GFR - AA 106 mL/min Normal >60 [facility] Comment on above: Result Comment: Afri can Austrian GFR Calc Performed By: #### L 501.9910, L500.4050, L502.0250, L100.0100, L500.4100, L501.9985 #### [facility] [address] [place], [address] GAP 7 Normal 5-15 [facility] Comment on above: Performed By: #### L 501.9910, L500.4050, L502.0250, L100.0100, L500.4100, L501.9985 #### [facility] [address] [place], [address] GFR/1.73 sq M.predicted among non-blacks MDRD (S/P/Bld) [Vol rate/Area] 87 mL/min/{1.73_m2} Normal >60 [facility] Comment on above: Result Comment: Non- GFR Calc Performed By: #### L 501.9910, L500.4050, L502.0250, L100.0100, L500.4100, L501.9985 #### [facility] [address] [place], [address] Globulin (S) [Mass/Vol] 4.4 g/dL High 2.2-4.2 [facility] Comment on above: Performed By: #### L 501.9910, L500.4050, L502.0250, L100.0100, L500.4100, L501.9985 #### [facility] [address] [place], [address] Glucose [Mass/Vol] 124 mg/dL High 74-106 [facility] Comment on above: Result Comment: Fast ing Glucose result from 100 to 125 mg/dL suggests IMPAIRED HOMEOSTASIS per A.D.A. criteria. Performed By: #### L 501.9910, L500.4050, L502.0250, L100.0100, L500.4100, L501.9985 #### [facility] [address] [place], [address] Potassium [Moles/Vol] 4.2 mmol/L Normal 3.5-5.1 [facility] Comment on above: Performed By: #### L 501.9910, L500.4050, L502.0250, L100.0100, L500.4100, L501.9985 #### [facility] [address] [place], [address] Sodium [Moles/Vol] 137 mmol/L Normal 136-145 [facility] Comment on above: Performed By: #### L 501.9910, L500.4050, L502.0250, L100.0100, L500.4100, L501.9985 #### [facility] [address] [place], [address] T PROT 8.0 g/dL Normal 6.4-8.2 [facility] Comment on above: Performed By: #### L 501.9910, L500.4050, L502.0250, L100.0100, L500.4100, L501.9985 #### [facility] [address] [place], [address] Urea nitrogen [Mass/Vol] 15 mg/dL Normal 7-18 [facility] Comment on above: Performed By: #### L 501.9910, L500.4050, L502.0250, L100.0100, L500.4100, L501.9985 #### [facility] [address] [place], [address] Hemoglobin A1con 02-23-2024 HbA1c (Bld) [Mass fraction] 6.0 % High 3.8-5.6 [facility] Comment on above: Result Comment: Norm al < 5.7 % Prediabetic 5.7 - 6.4 % Diabetic >or= 6.5 % Please note range changes. Performed By: #### L 501.9910, L500.4050, L502.0250, L100.0100, L500.4100, L501.9985 #### [facility] [address] [place], [address] Lipid Profileon 02-23-2024 Cholesterol [Mass/Vol] 149 mg/dL Normal 200 [facility] Comment on above: Result Comment: <200 mg/dL Desirable 200-240 mg/dL Borderline >240 mg/dL High Risk Performed By: #### L 501.9910, L500.4050, L502.0250, L100.0100, L500.4100, L501.9985 #### [facility] [address] [place], [address] Cholesterol in HDL [Mass/Vol] 47 mg/dL Normal [facility] Comment on above: Result Comment: The drugs N-Acetylcysteine and Metamizole may falsely depress this assay. Reference Range HDL <40 mg/dL Low HDL Cholesterol HDL >or= 60 mg/dL High HDL Cholesterol Performed By: #### L 501.9910, L500.4050, L502.0250, L100.0100, L500.4100, L501.9985 #### [facility] [address] [place], [address] Cholesterol in LDL [Mass/Vol] 63 mg/dL Normal 0-130 [facility] Comment on above: Performed By: #### L 501.9910, L500.4050, L502.0250, L100.0100, L500.4100, L501.9985 #### [facility] [address] [place], [address] Cholesterol in VLDL [Mass/Vol] 39 mg/dL Normal 5-40 [facility] Comment on above: Performed By: #### L 501.9910, L500.4050, L502.0250, L100.0100, L500.4100, L501.9985 #### [facility] [address] [place], [address] Triglyceride [Mass/Vol] 194 mg/dL Normal [facility] Comment on above: Result Comment: The drugs N-Acetylcysteine and Metamizole may falsely depress this assay. Serum Triglycerides Reference Interval Normal <150 mg/dL Borderline high 150 - 199 mg/dL High 200 - 499 mg/dL Very High > or = 500 mg/dL Performed By: #### L 501.9910, L500.4050, L502.0250, L100.0100, L500.4100, L501.9985 #### [facility] [address] [place], [address] Microalb:Creat Ratio,Random URon 02-23-2024 Creatinine [Mass/Vol] 284.00 mg/dL Normal NO RANGE EST . [facility] Comment on above: Performed By: #### L 501.9910, L500.4050, L502.0250, L100.0100, L500.4100, L501.9985 #### [facility] [address] [place], [address] MALB:CRE 443.7 mg/g CRE High <30 mg/g CRE [facility] Comment on above: Performed By: #### L 501.9910, L500.4050, L502.0250, L100.0100, L500.4100, L501.9985 #### [facility] [address] [place], [address] MICROALBUMIN,UR 1260.0 mg/L Normal NO RANGE EST. [facility] Comment on above: Performed By: #### L 501.9910, L500.4050, L502.0250, L100.0100, L500.4100, L501.9985 #### [facility] [address] [place], [address] PSA,Total - Annual Screenon 02-23-2024 PSA,TOT SCREEN 0.81 ng/mL Normal 0.00-4.00 [facility] Comment on above: Result Comment: This test was performed using the TPSA assay method for the [employer] chemistry system. Values obtained with different assay methods cannot be used interchangably. When changing PSA assays in the course of monitoring a patient, additional sequential testing should be carried out to confirm baseline values. Performed By: #### L 501.9910, L500.4050, L502.0250, L100.0100, L500.4100, L501.9985 #### [facility] [address] [place], [address] Basophil percentageOrdered B y: Angelo Sinclair on 02-17-2023 Bilirubin [Mass/Vol] 0.30 mg/dL 0.20-1.00 [facility] Comment on above: For patients on eltr ombopag therapy, use of Dimension D Lo TBIL is not recommended. Chloride [Moles/Vol] 99 mmol/L 98-107 [facility] Cholesterol [Mass/Vol] 139 mg/dL <200 [facility] Comment on above: <200 mg/dL Desirable 200-240 mg/dL Borderline >240 mg/dL High Risk Glucose [Mass/Vol] 122 mg/dL 74-106 [facility] Comment on above: Fasting Glucose resu lt from 100 to 125 mg/dL suggests IMPAIRED HOMEOSTASIS per A.D.A. criteria. Potassium [Moles/Vol] 3.9 mmol/L 3.5-5.1 [facility] Protein [Mass/Vol] 8.0 g/dL 6.4-8.2 [facility] Sodium [Moles/Vol] 134 mmol/L 136-145 [facility] Triglyceride [Mass/Vol] 175 mg/dL <199 [facility] Comment on above: The drugs N-Acetylcy steine and Metamizole may falsely depress this assay.Serum Triglycerides Reference Interval Normal <150 mg/dL Borderline high 150 - 199 mg/dL High 200 - 499 mg/dL Very High > or = 500 mg/dL Laboratory - Chemistry and C hemistry - challengeOrdered By: Angelo Sinclair on 02-17-2023 ALP [Catalytic activity/Vol] 104 U/L 45-117 [facility] ALT [Catalytic activity/Vol] 48 U/L 16-61 [facility] CO2 [Moles/Vol] 27.0 mmol/L 21.0-32.0 [facility] Globulin (S) [Mass/Vol] 4.3 g/dL 2.2-4.2 [facility] Urea nitrogen/Creatinine [Mass ratio] 22.2 mg/mg 10-20 [facility] No Panel InformationOrdered By: Angelo Sinclair on 02-17-2023 Estimated GFR (MDRD) Amer 90 mL/min >60 [facility] Comment on above: GFR Calc Estimated GFR (MDRD) Non-Af Amer 74 mL/min >60 [facility] Comment on above: Non- GFR Calc Prostate Specific Antigen Screen 0.81 ng/mL 0.00-4.00 [facility] Comment on above: This test was perfor med using the TPSA assay method for the[facility] [employer] chemistry system. Values obtained with differentassay methods cannot be used interchangably.When changing PSA assays in the course of monitoring apatient, additional sequential testing should be carriedout to confirm baseline values. Urine Microalbumin/Creatinine Ratio 15.5 mg/g CRE <30 [facility] Serum or plasma albumin estefania urement (mass/volume)Ordered By: Angelo Sinclair on 02-17-2023 Albumin [Mass/Vol] 3.7 g/dL 3.2-5.0 [facility] Serum or plasma albumin/glob ulin mass ratioOrdered By: Angelo Sinclair on 02-17-2023 Albumin/Globulin [Mass ratio] 0.9 {ratio} 0.9-2.4 [facility] Serum or plasma calcium estefania urement (mass/volume)Ordered By: Angelo Sinclair on 02-17-2023 Calcium [Mass/Vol] 8.8 mg/dL 8.5-10.1 [facility] Serum or plasma cholesterol in HDL measurement (mass/volume)Ordered By: Angelo Sinclair on 02-17-2023 Cholesterol in HDL [Mass/Vol] 39 mg/dL >40 [facility] Comment on above: The drugs N-Acetylcy steine and Metamizole may falsely depress this assay. Reference Range HDL <40 mg/dL Low HDL Cholesterol HDL >or= 60 mg/dL High HDL Cholesterol Serum or plasma cholesterol in VLDL measurement (mass/volume)Ordered By: Angelo Sinclair on 02-17-2023 Cholesterol in VLDL [Mass/Vol] 35 mg/dL 5-40 [facility] Serum or plasma creatinine m easurement (mass/volume)Ordered By: Angelo Sinclair on 02-17-2023 Creatinine [Mass/Vol] 1.08 mg/dL 0.70-1.30 [facility] Comment on above: The validity of the calculated GFR & GFRAA in patients over 70 years has not been determined. Clinical correlation is essential. Serum or plasma low density lipoprotein (LDL) cholesterol measurement (mass/volume)Ordered By: Angelo Sinclair on 02-17-2023 Cholesterol in LDL [Mass/Vol] 65 mg/dL 0-130 [facility] Serum or plasma urea nitroge n measurement (mass/volume)Ordered By: Angelo Sinclair on 02-17-2023 Urea nitrogen [Mass/Vol] 24 mg/dL 7-18 [facility] Thin prep Papanicolaou smear with manual screeningOrdered By: Angelo Sinclair on 02-17-2023 Thin prep Papanicolaou smear with manual screening 22 U/L 15-37 [facility] Thin prep Papanicolaou smear with manual screening 8 5-15 [facility] Thin prep Papanicolaou smear with manual screening 24.0 mg/L NO RANGE EST. [facility] Urine creatinine measurement (mass/volume)Ordered By: Angelo Sinclair on 02-17-2023 Creatinine (U) [Mass/Vol] 155.00 mg/dL NO RANGE EST. [facility] Whole blood hemoglobin A1c/t otal hemoglobin ratio (mass fraction)Ordered By: Angelo Sinclair on 02-17-2023 HbA1c (Bld) [Mass fraction] 6.0 % 3.8-5.6 [facility] Comment on above: Normal < 5.7 % Predi abetic 5.7 - 6.4 % Diabetic >or= 6.5 % Please note range changes. Absolute lymphocyte counton 01-10-2022 Lymphocytes Auto (Unsp spec) [#/Vol] 2.21 10*3/uL 0.83-4.51 [facility] Work Phone: Basophil percentageon 2021 Basophils/100 WBC (Bld) 0.8 % 0-1 [facility] Work Phone: Bilirubin [Mass/Vol] 0.40 mg/dL 0.20-1.00 [facility] Work Phone: Comment on above: For patients on eltr ombopag therapy, use of Dimension D Lo TBIL is not recommended. Chloride [Moles/Vol] 100 mmol/L 98-107 [facility] Work Phone: Cholesterol [Mass/Vol] 268 mg/dL <200 [facility] Work Phone: Comment on above: <200 mg/dL Desirable 200-240 mg/dL Borderline >240 mg/dL High Risk Eosinophils/100 WBC (Bld) 2.7 % 0-5 [facility] Work Phone: Glucose [Mass/Vol] 178 mg/dL 74-106 [facility] Work Phone: Comment on above: Fasting Glucose resu lt greater than or equal to 126 mg/dL suggests DIABETES MELLITUS per A.D.A. criteria. Neutrophils (Bld) [#/Vol] 5.0 10*3/uL 2.0-7.7 [facility] Work Phone: Neutrophils/100 WBC (Bld) 58.8 % 47-70 [facility] Work Phone: Potassium [Moles/Vol] 4.3 mmol/L 3.5-5.1 [facility] Work Phone: Protein [Mass/Vol] 7.7 g/dL 6.4-8.2 [facility] Work Phone: Sodium [Moles/Vol] 134 mmol/L 136-145 [facility] Work Phone: Triglyceride [Mass/Vol] 343 mg/dL <199 [facility] Work Phone: Comment on above: The drugs N-Acetylcy steine and Metamizole may falsely depress this assay.Serum Triglycerides Reference Interval Normal <150 mg/dL Borderline high 150 - 199 mg/dL High 200 - 499 mg/dL Very High > or = 500 mg/dL WBC (Bld) [#/Vol] 8.5 10*3/uL 4.4-11.0 [facility] Work Phone: Blood erythrocytes count (nu mber/volume)on 01-10-2022 RBC (Bld) [#/Vol] 4.97 10*6/uL 4.6-6.[address] [facility] Work Phone: Blood hemoglobin measurement (mass/volume)on 01-10-2022 Hemoglobin (Bld) [Mass/Vol] 16.1 g/dL 13.0-16.5 [facility] Work Phone: Blood lymphocytes/100 leukoc yteson 01-10-2022 Lymphocytes/100 WBC (Bld) 26.1 % 19-41 [facility] Work Phone: Blood monocytes/100 leukocyt eson 01-10-2022 Monocytes/100 WBC (Bld) 11.1 % 0-10 [facility] Work Phone: Blood platelet mean volumeon 01-10-2022 Platelet mean volume (Bld) [Entitic vol] 12.4 fL 6.2-12.0 [facility] Work Phone: Determination of erythrocyte mean corpuscular volume (MCV)on 01-10-2022 MCV (RBC) [Entitic vol] 95.0 fL 80-94 [facility] Work Phone: Hematocrit Auto (Bld) [Volum e fraction]on 01-10-2022 Hematocrit (Bld) [Volume fraction] 47.2 % 40-54 [facility] Work Phone: [phone] Laboratory - Chemistry and C hemistry - challengeon 01-10-2022 ALP [Catalytic activity/Vol] 96 U/L 45-117 [facility] Work Phone: ALT [Catalytic activity/Vol] 46 U/L 16-61 [facility] Work Phone: CO2 [Moles/Vol] 27.0 mmol/L 21.0-32.0 [facility] Work Phone: Globulin (S) [Mass/Vol] 4.4 g/dL 2.2-4.2 [facility] Work Phone: Urea nitrogen/Creatinine [Mass ratio] 12.8 mg/mg 10-20 [facility] Work Phone: Laboratory - Hematology and Cell countson 01-10-2022 Erythrocyte distribution width (RBC) [Entitic vol] 46.0 fL 35.1-43.9 [facility] Work Phone: Erythrocyte distribution width (RBC) [Ratio] 13.2 % 11.6-14.6 [facility] Work Phone: Immature granulocytes/100 WBC (Bld) 0.500 % 0.0-0.9 [facility] Work Phone: Comment on above: IG% - Immature Granu locytes (promyelocytes, myelocytes and metamyelocytes) > 1% indicates that a LEFT SHIFT is Present. MCH (RBC) [Entitic mass] 32.4 pg 27.0-32.0 [facility] Work Phone: Nucleated RBC/100 WBC (Bld) [Ratio] 0 % 0-5 [facility] Work Phone: MCHC Auto (RBC) [Mass/Vol]on 01-10-2022 MCHC (RBC) [Mass/Vol] 34.1 g/dL 32-36 [facility] Work Phone: No Panel Informationon 01-10 Estimated GFR (MDRD) Amer 82 mL/min >60 [facility] Work Phone: Comment on above: GFR Calc Estimated GFR (MDRD) Non-Af Amer 68 mL/min >60 [facility] Work Phone: Comment on above: Non- GFR Calc Prostate Specific Antigen Screen 0.75 ng/mL 0.00-4.00 [facility] Work Phone: Comment on above: This test was perfor med using the TPSA assay method for [employer] chemistry system. Values obtained with differentassay methods cannot be used interchangably.When changing PSA assays in the course of monitoring apatient, additional sequential testing should be carriedout to confirm baseline values. Platelets bldon 01-10-2022 Platelets (Bld) [#/Vol] 201 10*3/uL 150-450 [facility] Work Phone: Serum or plasma albumin estefania urement (mass/volume)on 01-10-2022 Albumin [Mass/Vol] 3.3 g/dL 3.2-5.0 [facility] Work Phone: Serum or plasma albumin/glob ulin mass ratioon 01-10-2022 Albumin/Globulin [Mass ratio] 0.8 {ratio} 0.9-2.4 [facility] Work Phone: Serum or plasma calcium estefania urement (mass/volume)on 01-10-2022 Calcium [Mass/Vol] 9.1 mg/dL 8.5-10.1 [facility] Work Phone: Serum or plasma cholesterol in HDL measurement (mass/volume)on 01-10-2022 Cholesterol in HDL [Mass/Vol] 36 mg/dL >40 [facility] Work Phone: Comment on above: The drugs N-Acetylcy steine and Metamizole may falsely depress this assay. Reference Range HDL <40 mg/dL Low HDL Cholesterol HDL >or= 60 mg/dL High HDL Cholesterol Serum or plasma cholesterol in VLDL measurement (mass/volume)on 01-10-2022 Cholesterol in VLDL [Mass/Vol] 69 mg/dL 5-40 [facility] Work Phone: Serum or plasma creatinine m easurement (mass/volume)on 01-10-2022 Creatinine [Mass/Vol] 1.17 mg/dL 0.70-1.30 [facility] Work Phone: Comment on above: The validity of the calculated GFR & GFRAA in patients over 70 years has not been determined. Clinical correlation is essential. Serum or plasma low density lipoprotein (LDL) cholesterol measurement (mass/volume)on 01-10-2022 Cholesterol in LDL [Mass/Vol] 163 mg/dL 0-130 [facility] Work Phone: Serum or plasma urea nitroge n measurement (mass/volume)on 01-10-2022 Urea nitrogen [Mass/Vol] 15 mg/dL 7-18 [facility] Work Phone: Thin prep Papanicolaou smear with manual screeningon 01-10-2022 Thin prep Papanicolaou smear with manual screening 21 U/L 15-37 [facility] Work Phone: Thin prep Papanicolaou smear with manual screening 7 5-15 [facility] Work Phone: Whole blood hemoglobin A1c/t otal hemoglobin ratio (mass fraction)on 01-10-2022 HbA1c (Bld) [Mass fraction] 8.2 % 3.8-5.6 [facility] Work Phone: Comment on above: Normal < 5.7 % Predi abetic 5.7 - 6.4 % Diabetic >or= 6.5 % Please note range changes. Vital Signs Date Time Vital Sign Value Performing Clinician Facility 12-07-2024 10:09-0400 Body height 175 cm Chance Mitan PA-C Work Phone: [facility] 12-07-2024 10:09-0400 Body height 175.26 cm Chance Mitan PA-C Work Phone: [facility] 12-07-2024 10:09-0400 Body mass index (BMI) [Ratio] 37.05 kg/m2 Chance Mitan PA-C Work Phone: [facility] 12-07-2024 10:09-0400 Body weight 114 kg Chance Mitan PA-C Work Phone: [facility] 12-07-2024 10:09-0400 Body weight 113.4 kg Chance Mitan PA-C Work Phone: [facility] 12-07-2024 10:09-0400 BP SITE #1 Chance Mitan PA-C Work Phone: [facility] 12-07-2024 10:09-0400 Diastolic blood pressure 72 mm[Hg] Chance Mitan PA-C Work Phone: [facility] 12-07-2024 10:09-0400 Heart rate 69 /min Chance Mitan PA-C Work Phone: [facility] 12-07-2024 10:09-0400 HGHTCHNVIS Chance Mitan PA-C Work Phone: [facility] 12-07-2024 10:09-0400 Systolic blood pressure 102 mm[Hg] Chance Mitan PA-C Work Phone: [facility] 12-07-2024 10:09-0400 VITALSDONE Chance Mitan PA-C Work Phone: [facility] 09-23-2024 10:38-0400 Body height 175.[address] Angelo Sinclair DO Work Phone: [facility] 04-10-2022 08:23-0500 Body height 175.[address] Angelo Sinclair Work Phone: [facility] 04-10-2022 08:23-0500 Body mass index (BMI) [Ratio] 38.9 kg/m2 Dr. Angelo Sinclair Work Phone: [facility] 04-10-2022 08:23-0500 Body temperature 98.4 [degF] Dr. Angelo Sinclair Work Phone: [facility] 04-10-2022 08:23-0500 Body weight 119.[address] Angelo Sinclair Work Phone: [facility] 04-10-2022 08:23-0500 Diastolic blood pressure 94 mm[Hg] Dr. Angelo Sinclair Work Phone: [facility] 04-10-2022 08:23-0500 Diastolic blood pressure 74 mm[Hg] Dr. Angelo Sinclair DO Work Phone: [facility] 04-10-2022 08:23-0500 Heart rate 120 /min Dr. Angelo Sinclair Work Phone: [facility] 04-10-2022 08:23-0500 Heart rate 71 /min Dr. Angelo Sinclair DO Work Phone: [facility] 04-10-2022 08:23-0500 Respiratory rate 18 /min Dr. Angelo Sinclair DO Work Phone: [facility] 04-10-2022 08:23-0500 SaO2% (BldA) [Mass fraction] 96 % Dr. Angelo Sinclair Work Phone: [facility] 04-10-2022 08:23-0500 Systolic blood pressure 138 mm[Hg] Dr. Angelo Sinclair Work Phone: [facility] 04-10-2022 08:23-0500 Systolic blood pressure 105 mm[Hg] Dr. Angelo Sinclair DO Work Phone: [facility] Encounters Encounter Date Encounter Type Care Provider Facility Start: 02-15-2025 ambulatory [facility] Facility: [facility] Start: 01-27-2025 ambulatory [facility] Facility: [facility] Start: 01-20-2025 [facility]ulatory [facility] Start: 01-19-2025 ambulatory [facility] Start: 01-19-2025 ambulatory [facility]am [facility]as Facility:[facility] Start: 12-07-2024 In-person encounter Tim harris PA-C Work Phone: [facility] Work Phone: Start: 12-07-2024 Visit out of hours Tim griggs PA-C Work Phone: [place] [facility]. Work Phone: Start: 10-11-2024 Non-patient / Non-visit Dr. Samuel MOSLEY -[facility] Start: 10-11-2024 End: 10-11-[address] Angelo Sinclair DO Work Phone: -[facility] Start: 10-11-2024 End: 10-11-[address] Angelo Sinclair DO -[facility] Work Phone: Start: 10-11-2024 End: 10-11-2024 ambulatory [facility] Facility:[facility] Start: 09-23-2024 End: 09-23-[address] Selam Mark MD -[facility] Work Phone: Start: 09-23-2024 End: 09-23-[address] Angelo Sinclair DO Work Phone: -[facility] Start: 03-25-2024 Encounter for genera l adult medical examination without abnormal findings [facility] Start: 02-23-2024 End: 02-23-2024 ambulatory Angelo Sinclair Facility:[facility] Start: 02-17-2023 End: 02-17-2023 ambulatory [facility] Work Phone: Start: 02-17-2023 End: 02-17-2023 Patient encounter procedure [facility]-Laboratory, [facility] Start: 05-08-2022 End: 05-08-[address] Angelo Sinclair Work Phone: [facility] Work Phone: Start: 05-08-2022 End: 05-08-[address] Angelo Sinclair Work Phone: [facility]-Cat Scan, [facility] Start: 04-10-2022 End: 04-10-[address] Angelo Sinclair Work Phone: [facility]-Pulmonary Medicine [facility] Start: 03-06-2022 End: 03-06-2022 ambulatory [facility] Work Phone: Start: 03-06-2022 End: 03-06-2022 Patient encounter procedure [facility]-Sleep Lab Start: 02-21-2022 End: 02-21-2022 ambulatory [facility] Work Phone: Start: 02-21-2022 End: 02-21-2022 Patient encounter procedure [facility]-Sleep Lab Start: 01-10-2022 End: 01-10-2022 Patient encounter procedure [facility]-Laboratory, [facility] Procedures Date Procedure Procedure Detail Performing Clinician Start: 12-07-2024 Blood pressure withi n normal parameters - no follow-up required Tim [id number] Work Phone: Start: 12-07-2024 Osteoarthritis symptoms&funcjal status [...] Activity Detail Author Start: 12-07-2024 End: 12-07-2024 [employer] Work Phone: Start: 12-07-2024 Radiologic examinati on knee 3 views [facility] Work Phone: Start: 09-23-2024 Evaluation of diagno stic study results [facility] Complete blood count [facility] Comprehensive metabo lic 1999 panel - Serum or Plasma [facility] Lipid 1996 panel - S mayela or Plasma [facility] NM Heart Views W str ess and W radionuclide IV [facility] Thyroid stimulating hormone measurement [facility] Immunizations Immunization Date Immunization Notes Care Provider Licha montes 04-11-2020 Covid (Moderna) [facility] 03-14-2020 Covid (Moderna) [facility] 02-07-2020 influenza, injectabl e, quadrivalent, preservative free [facility] 02-07-2020 influenza, seasonal, injectable [facility] 02-08-2019 influenza, injectabl e, quadrivalent, preservative free [facility] 02-08-2019 influenza, seasonal, injectable [facility] 02-12-2018 influenza, injectabl e, quadrivalent, preservative free [facility] 02-12-2018 influenza, seasonal, injectable [facility] 02-12-2017 influenza, injectabl e, quadrivalent, preservative free [facility] 02-12-2017 influenza, seasonal, injectable [facility] 12-15-2015 influenza, injectabl e, quadrivalent, preservative free [facility] 12-15-2015 influenza, seasonal, injectable [facility] 12-15-2014 influenza, injectabl e, quadrivalent, preservative free [facility] 12-15-2014 influenza, seasonal, injectable [facility] 12-09-2013 influenza, injectabl e, quadrivalent, preservative free [facility] 12-09-2013 influenza, seasonal, injectable [facility] 03-25-2013 Influenza virus vaccine [facility] Payers Date Payer Category Payer Unknown [id number] 2024 Self-pay [id number] 2023 Unknown [id number] Unknown [id number] Unknown [id number] 2.16.8 [id number] Unknown [id number] 2.16.8 [id number] Unknown [id number] 2.16.8 [id number] Unknown [id number] 2.16.8 [id number] Unknown [id number] 2.16.8 [id number] Unknown [id number] 2.16.8 [id number] Unknown [id number] 2.16.8 [id number] Unknown [id number] 2.16.8 [id number] Unknown [id number] 2.16.8 [id number] Social History Date Type Detail Facility Start: 12-27-2019 End: 04-10-2022 Tobacco smoking status NHIS Unknown if ever smoked [facility] Start: 12-10-2019 Cigarettes [facility] Start: 1965 Sex Assigned At Male [facility] Start: 04-10-2022 Tobacco smoking stat us NHIS Smokes tobacco daily (finding) [facility] Start: 12-07-2024 social history revie wed E&M Done [employer] Work Phone: Start: 12-07-2024 smoking/tobacco cessation, patient education and counseling Smoking cessation education (procedure) [employer] Work Phone: Medical Equipment Procedure Code Equipment [...] [employer] Work Phone: 12-07-2024 dependent [employer] Work Phone: Evaluation note 09-23-2024 Note [...] sleep apnea) chronic September 23, 2024 10:28am [facility] Work Phone: Evaluation note Note Date & Type Note Facility Evaluation note No assessment information availa ble [facility] Work Phone: Evaluation note Note Date & Type Note Facility Evaluation note Diagnosis Onset Date BMI 38.0-38.9,adult acute TRAN (obstructive sleep apnea) acute Smoking greater than 20 pack years [facility] Work Phone: Evaluation note Note Date [...] Essential hypertension chronic Ju ly 2024 10:28am [place] [employer] Work Phone: Reason for referral (narrative) Note Date & Type Note Facility Reason for referral (narrative) No reason for referral information available [facility] Work Phone: Chief Complaint and Reason for [...] No December 10, 2019 7:19am 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 Angelo Sinclair DO Primary Care Prov ider, Attending Provider, Referring Provider Active Team Status: Inactive Member Role Status Dates Dr. Angelo Sinclair DO Primary Care Provider Active Margarita Grider ASTRONAUTICAL ENGINEER, ASTRONAUTICAL ENGINEER-C Attending Provider, Referrin g Provider Active Team [...] section and content) DATE CREATED AUTHOR 01/26/2025 [facility] FOR RECORDS PERTAINING TO PATIENTS WHO ARE [...] BE BASED ON THE PRIMARY CLINICAL RECORDS. [employer] provides no warranty or guarantee of the accuracy or completeness of information in this document.
--- NOTE | 2025-02-17 09:40 | CL.I_ITS ---
Patient Name: MELISSA CAROLINA Study Date: 02/17/2025 Performing: Selam Mark MD Ht: 69 inches 175.26 cm : 1965 Wt: 264.3 lbs 119.75 kg Age: 59 Gender: male BSA: 2.32 PROCEDURE(S) PERFORMED IC12-([id number])MARQUEZ W/WO PTCA, SINGLE CORONARY ARTERY IC12-([id number])MARQUEZ W/WO PTCA, SINGLE CORONARY ARTERY IC13-([id number])MARQUEZ W/WO PTCA, EACH ADD'L ART, SAME MAJOR CLINICAL PROFILE AND CO-MORBIDITIES Indications: Other - Staged PCI Heart Failure: None Stress/Imaging Stress Test w/SPECT MPI: Yes Result: Positive Intermediate Risk Stress Test with SPECT MPI: Positive Intermediate Risk Angina Classification Anginal Classification w/in 2 Weeks: Anginal Equivalent Dyspnea CONCLUSIONS Successful PTCA/MARQUEZ Mid LCX using Nel [place] 3.0x34 mm, optimized proximally using 3.5 mm balloon Successful MARQUEZ Prox D2 using [place] 2.25x15 mm Successful MARQUEZ Prox D1 using [place] 2.5x18 mm, post-dilated using 3.0 mm balloon RECOMMENDATIONS P2Y12 inhibitors for atleast 6 months Continue patient's DOAC for A. Flutter DESCRIPTION OF PROCEDURE The patient arrived to the procedure lab. The risks and benefits of the procedure as well as a full description of our services here and current unavailability of surgical backup were fully explained to the patient and/or their significant other prior to the catheterization. The Timeout was completed, verifying the correct patient and procedure. The patient's procedural site was prepped and draped in the usual fashion. Local anesthetic was given subcutaneously to right radial region with Lidocaine 2%. Using a modified Seldinger technique, arterial access was obtained via the right radial artery, a 6Fr sheath was inserted.. XB 3.5 Guide catheter was inserted and engaged into the LCA. Runthrough Guide wire was advanced to the Circumflex. Emerge 2.0 x 12 Balloon catheter was inserted. Balloon catheter was advanced across lesion in the circumflex, mid. Emerge 2.5 x 15 Balloon catheter was inserted. Balloon catheter was advanced across lesion in the circumflex, mid. PTCA balloon inflated at 12 atms for 13 secs. Angiogram performed post balloon dilatation. [place] 3.0 x 34 Drug Eluting stent was inserted. Drug Eluting stent was advanced across the lesion in the circumflex, mid. Angiogram performed pre stent deployment. NC Euphora 3.0 x 12 Balloon catheter was inserted. Balloon catheter was advanced across lesion in the circumflex, mid. Angiogram performed pre balloon dilatation. Angiogram performed post balloon dilatation. NC Euphora 3.5 x 12 Balloon catheter was inserted. Balloon catheter was advanced across lesion in the circumflex, mid. Angiogram performed pre balloon dilatation. Guide wire was repositioned to the 2nd Diagonal Nel [place] 2.25 x 15 Drug Eluting stent was inserted. Drug Eluting stent was advanced across the lesion in the second diagonal, proximal NC Emerge 2.25 x 12 Balloon catheter was inserted. Balloon catheter was advanced across lesion in the second diagonal, proximal Angiogram performed pre balloon dilatation. Guide wire was repositioned to the 1st Diagonal Nel [place] 2.5 x 18 Drug Eluting stent was inserted. Drug Eluting stent was advanced across the lesion in the first diagonal, proximal. NC Euphora 3.0 x 12 Balloon catheter was reinserted Balloon catheter was advanced across lesion in the first diagonal, proximal. Angiogram performed pre balloon dilatation. Angiogram performed post balloon dilatation. The arterial sheath was pulled and a TR Band was applied for hemostasis INTERVENTION INFORMATION LESION SITE: Circumflex (Mid) Lesion Complexity: High/C, lesion length: 32 mm Pre Stenosis: 80 % Pre intervention SHAYY flow: 3 PROCEDURE: Drug Eluting Stent with pre and post dilatation Post Stenosis: 0 % Post intervention SHAYY flow: 3 Lesion Devices: Cordis 6 Fr XB3.5 100cm Guide Catheter Terumo .014 180cm Runthrough Extra Floppy straight Cesar Sci EMERGE MR 2.50x15 BALLOON Medtronic 3.0 x 34 NEL FRONTIER MARQUEZ Medtronic NC EUPHORA RX 3.0x12 BALLOON Medtronic NC EUPHORA RX 3.5x12 BALLOON LESION SITE: 2nd Diagonal (Proximal) Lesion Complexity: Non-High/Non-C, lesion length: 14 mm Pre Stenosis: 90 % Pre intervention SHAYY flow: 3 PROCEDURE: Drug Eluting Stent with post dilatation Post Stenosis: 0 % Post intervention SHAYY flow: 3 Lesion Devices: Cordis 6 Fr XB3.5 100cm Guide Catheter Terumo .014 180cm Runthrough Extra Floppy straight Medtronic 2.25 x 15 NEL FRONTIER MARQUEZ Cesar Sci NC EMERGE MR 2.25x12 BALLOON LESION SITE: 1st Diagonal (Proximal) lesion length: 16 mm Pre Stenosis: 70 % Pre intervention SHAYY flow: 3 PROCEDURE: Drug Eluting Stent with post dilatation 0 % Post intervention SHAYY flow: 3 Lesion Devices: Cordis 6 Fr XB3.5 100cm Guide Catheter Terumo .014 180cm Runthrough Extra Floppy straight Medtronic 2.50 x 18 NEL FRONTIER MARQUEZ COMPLICATIONS No Complications PROCEDURE MEDICATIONS Fentanyl 50 mcg IV Versed 1 mg IV Fentanyl 50 mcg IV Brilinta 180 mg PO @ 02/17/2025 07:17:04 Heparin given IA 02/17/2025 07:51:28 Heparin 8000 unit(s) IV 02/17/2025 07:51:39 Heparin 3000 unit(s) IV 02/17/2025 09:14:04 Nitro 100 mcg IC 02/17/2025 08:37:51 Verapamil 2.5mg, Ntg 200mcgs, 2000 units of Heparin given IA 02/17/2025 07:51:28 SUMMARY OF HEMODYNAMIC DATA Time AIR REST ECG 07:19:27 ECG 07:37:52 AO 132/86 (106) SA 08:02:46 Signed By Selam Mark MD On 02/17/2025 09:39:07 Selam Mark MD
[2025-02-17] MEDS: 0.9% Normal Saline (1000mL) 1,000 ML 100 ML IV (10:27)
--- NOTE | 2025-02-17 10:32 | DCINST_ITS ---
Discharge Instructions DC O2, CPAP, BIPAP needs Home O2 Discharge instructions: No Dressing / Incision Discharge Activity: Return to Normal Activity May resume sexual activity in: No Restrictions Dressing / Incision Call your doctor if your incision/area has: Continuous Slow Oozing, Sudden Increased Bleeding, Increased Pain/ Swelling and Increased Redness Call your doctor if you observe: Fever of 101 or Higher, Coldness, Increased Pain, Numbness or Tingling and Change in Color Follow Up Care Please Follow Up With: Selam Mark MD When: 2-4 weeks Test Results: Test results from this visit will be discussed in further detail at your follow- up appointment, if applicable. Discharge Plan Admission Admit Date/Time: 02/17/25 09:20 Attending Provider: Selam Mark Primary Care Provider: Angelo Sinclair Discharge Orders/Prescriptions Prescriptions: New Eliquis 5 mg Tablet 5 mg PO BID Qty: 60 6RF Continued diltiazem HCl [Tiadylt ER] 240 mg capsule,extended release 24 hr 240 mg PO QAM rosuvastatin 20 mg tablet 20 mg PO DAILY citalopram 20 MG tablet 20 mg PO DAILY albuterol sulfate 90 mcg/actuation HFA aerosol inhaler inhalation metoprolol tartrate 25 mg tablet 25 mg PO BID Qty: 60 6RF Held metformin 1,000 mg tablet 1,000 mg PO BID Hold Instructions: Resume on 02/20/25. Patient Comments: HOLD MEDICATION UNTIL 02/18/25 Discontinued Xarelto 20 mg tablet 20 mg PO DAILY aspirin 81 mg tablet 81 mg PO QDAY Qty: 10 0RF Referrals / Follow Up: Angelo Sinclair DO [Primary Care Provider, Family Practice] Disposition Disposition (needs filled in before D/C Order can be placed): Home, Self Care
[2025-02-17 11:36] LABS: ACT Activated Clotting Time 220 sec (74-137)
[2025-02-17 11:36] LABS: ACT Activated Clotting Time 312 sec (74-137)
--- NOTE | 2025-02-17 11:51 | CASEMGMT ---
NGA ARAIZA inquired by Dr. Mark if patient's insurance would cover Eliquis, NGA ARAIZA requested script be sent to [facility] to vargas check prescrition. NGA ARAIZA called [facility] and inquired about copay. Per Amaya, patient's copay is $100 same as his Xarelto prescription. NGA ARAIZA called and updated Dr. Mark, Dr. Mark states he will switch patient to Eliquis. NGA ARAIZA updated Amaya to confirm change to from Xarelto to Eliquis. NGA ARAIZA in to provide patient with savings card for Eliquis and update that copay is $100. Patient states he had nose bleeds on Eliquis, NGA ARAIZA updated floor nurse who will updated Dr. Mark. Patient had no further questions or concerns.
[2025-02-17] MEDS: 0.9% Saline Lock 10 ML Syringe IV ×2 (18:42→21:10)
[2025-02-17] MEDS: APIXABAN 5 MG TABLET PO (21:10)
[2025-02-18 03:00] VITALS: BP 130/83; PULSE 69; RESP 18; TEMP 36.8; O2SAT 92
[2025-02-18 06:05] VITALS: BP 149/82; PULSE 53; RESP 20; TEMP 36.6; O2SAT 91
[2025-02-18 06:11] LABS: Hematocrit 45.8 % (40-54); Hemoglobin 14.8 g/dL (13.0-16.5); Mean Corp Hgb Conc 32.3 g/dL (32-36); Mean Corpuscular Volume 92.9 fL (80-94); Mean Platelet Vol. 10.8 fl (6.2-12.0); Platelet Count 179 K/mm3 (150-450); RBC Distribution Width CV 14.8 % (11.6-14.6); RBC Distribution Width SD 50.8 fl (35.1-43.9); Red Blood Count 4.93 M/mm3 (4.6-6.2); White Blood Count 9.0 K/mm3 (4.4-11.0)
[2025-02-18 06:40] LABS: AST(SGOT) 33 U/L (<=37); Alanine Aminotransfer ALT/SGPT 48 U/L (<=46); Albumin, Serum 3.7 g/dL (3.4-4.8); Alkaline Phosphatase 120 U/L (40-129); Anion Gap 12 (5-15); BUN 14 mg/dL (4-19); BUN/Creat Ratio 19.1 RATIO (10-20); Calcium,Total 9.2 mg/dL (7.6-11.0); Carbon Dioxide 23.6 mmol/L (21.0-32.0); Chloride 98 mmol/L (98-108); Estimated Creatinine Clearance 132.13 ml/min (50-250); Globulin 4.1 g/dL (2.2-4.2); Glucose 142 mg/dL (70-99); Potassium 4.1 mmol/L (3.3-5.1)
[2025-02-18 08:25] VITALS: BP 112/82; PULSE 98; RESP 18; TEMP 36.4; O2SAT 93
[2025-02-18 08:31] VITALS: BP 112/82; PULSE 98
[2025-02-18] MEDS: APIXABAN 5 MG TABLET PO (08:31)
--- NOTE | 2025-02-18 08:34 | DCINST_ITS ---
Discharge Instructions DC O2, CPAP, BIPAP needs Home O2 Discharge instructions: No Dressing / Incision May resume sexual activity in: No Restrictions Dressing / Incision Call your doctor if your incision/area has: Continuous Slow Oozing, Sudden Increased Bleeding, Increased Pain/ Swelling and Increased Redness Call your doctor if you observe: Fever of 101 or Higher, Coldness, Increased Pain, Numbness or Tingling and Change in Color Follow Up Care Please Follow Up With: Selam Mark MD Test Results: Test results from this visit will be discussed in further detail at your follow- up appointment, if applicable. Discharge Plan Admission Admit Date/Time: 02/17/25 09:20 Attending Provider: Selam Mark Primary Care Provider: Angelo Sinclair Instructions Additional Instructions / Restrictions: Make sure you are taking both your Xarelto and your clopidogrel. Both of these are important as we have discussed. Discharge Orders/Prescriptions Prescriptions: New Xarelto 20 mg tablet 20 mg PO QPM Qty: 90 3RF Rx Instructions: must administer with evening meal Continued diltiazem HCl [Tiadylt ER] 240 mg capsule,extended release 24 hr 240 mg PO QAM rosuvastatin 20 mg tablet 20 mg PO DAILY citalopram 20 MG tablet 20 mg PO DAILY albuterol sulfate 90 mcg/actuation HFA aerosol inhaler inhalation metoprolol tartrate 25 mg tablet 25 mg PO BID Qty: 60 6RF Held metformin 1,000 mg tablet 1,000 mg PO BID Hold Instructions: Resume on 02/20/25. Patient Comments: HOLD MEDICATION UNTIL 02/18/25 Discontinued Xarelto 20 mg tablet 20 mg PO DAILY aspirin 81 mg tablet 81 mg PO QDAY Qty: 10 0RF No Action clopidogrel 75 mg tablet 75 mg PO DAILY Qty: 30 6RF Referrals / Follow Up: Selam Mark MD [Med Staff - Active Staff, Cardiology] Angelo Sinclair DO [Primary Care Provider, Family Practice] Disposition Disposition (needs filled in before D/C Order can be placed): Home, Self Care
--- NOTE | 2025-02-18 09:35 | CASEMGMT ---
Patient has order for discharge. Patient is discharging on Xarelto, copay is $100. RN CM in to provide patient with $10 copay card. Patient denies needs or help at discharge. Patient had no further questions or concern.
== END 2025-02-18 10:53 | disposition home or self-care (01) ==
LOC: PCU 09:32
PROVIDERS: Admitting Provider Internal Medicine Cardiovascular Disease; PCP Family Medicine; Referring Provider Internal Medicine Cardiovascular Disease; Visit Provider Internal Medicine Cardiovascular Disease
DX: R94.39 Abnormal result of other cardiovascular function study (principal); J43.9 Emphysema, unspecified; E11.9 Type 2 diabetes mellitus without complications; I25.10 Atherosclerotic heart disease of native coronary artery without angina pectoris; F17.200 Nicotine dependence, unspecified, uncomplicated; I10 Essential (primary) hypertension; E66.9 Obesity, unspecified; E78.5 Hyperlipidemia, unspecified; R06.02 Shortness of breath; Z79.899 Other long term (current) drug therapy
CPT/HCPCS: 80053; 85027; 85347; 92928; 92929; 96360; 96361; 99152; 99153; 99221; C1894; Q9967; A4216; C1725; C1769; C1874; C1887; C9600; C9601; G0378

== ENCOUNTER → 2025-02-22 | Outpatient (CLI) | payer OTHER, SELFPAY ==
--- OUTSIDE RECORDS SUMMARY | 2025-02-22 10:58 | XMS RPT_ITS | CCD ---
Author Organization [facility] Care Team Providers Care Hooker Inspector Name Role Phone Dr. Angelo Sinclair Primary Care Provider Dr. Angelo Sinclair Referring Provider Cheo GRAVES, RADHA Avila Attending Provider [phone] Dr. Angelo Sinclair DO Primary Care Provider [phone] Dr. Angelo Sinclair DO Referring Provider Jas MOSLEY, Dr. Doss Attending Provider Dr. Angelo Sinclair DO Attending Provider Dr. Selam Mark MD Other Provider [phone] Israel MOSLEY, Dr. Marina Attending Provider Jessica MEJÍA, Tim Cuevas Unavailable NONE, NONE Unavailable Unavailable Angelo Sinclair DO Unavailable [phone] Angelo Sinclair Primary Care Unavailable Angelo Sinclair [...] Drug Class(es) Dates Sig (Normalized) Sig (Original) [id number] 200 actuat albuterol 0.09 mg/actuat metered dose inhaler (1 source) beta2-Adrenergic Agonist albuterol sulfate HFA 90 mcg/actuation aerosol inhaler active Arnold Macedo [facility] apixaban 5 mg oral tablet (3 [...] mouth twice a day active Randa Cuenca [facility] citalopram 20 [...] capsule,extended release 24 hr active Arnold Macedo [facility] hydroCHLOROthiazide 25 mg / lisinopril 20 [...] mouth once a day active Randaraisa Cuenca [facility] [place] [facility] Completed/Discontinued Medications Medication [...] 2 Receptor Sanjay Start: 03-19-2013 End: 12-06-2019 Telmisartan-[place] chlorothiazid 1 EACH tablet Discontinued 1 NMA [...] Coronary atherosclerosis; Translations: [Atherosclerotic heart disease of douglas coronary artery without angina pectoris] Onset: 5 [...] Range Facility Stress Reporton 01-19-2025 Stress Report [facility] [address] [place] [address] MR#: [id number] Acct: [id number] Name: MELISSA CAROLINA Rep #: [id number] : 1965 59 From: Selam Mark MD [...] inferior wall. This note was generated with [employer] dictation software. It may contain incorrect words, spelling, and punctuation that were not noted in checking the note before signing. 01/19/25 1440 Date Selam Mark MD CC: Dr. Selam Mark MD; Dr. Angelo Sinclair, Date Dictated: 01/19/251437 Date Transcribed: 01/19/251437 Assembling Machine Operator: ALBERT Signed Normal [facility] Relevant diagnostic tests/la boratory data Narrativeon 12-07-2024 Fall risk assessment no [employer] Work Phone: MEDS REVIEW Documentation of current medications (procedure) [employer] Work Phone: MEDS REVIEWD Medications reviewed without changes [employer] Work Phone: Echo Completeon 10-11-2024 Echo Complete [facility] [address] [place] [address] Echo Complete 10/11/24 1507 MR#: [id number] Acct: [id number] Name: MELISSA CAROLINA Rep #: [id number] : 1965 59 From: Salas Wood MD Attending Dr: Dr. Angelo Sinclair, Status: REG CLI Ordering Dr: Angelo Sinclair DO Date: 10/11/24 Location: [facility] Sex: M C Admitted: Reason For Study [...] Dictated: 10/11/24 1507 Date Transcribed: 10/11/24 1604 Assembling Machine Operator: Signed Normal [facility] Echocardiogram study reportO rdered By: Salas Wood on 10-11-2024 Study report [facility] [place] [address] Echo Complete 10/11/24 1507 MR#: [id number] Acct: [id number] Name: MELISSA CAROLINA Rep #:[id number] : 1965 59 From: Salas Bautista Attending Dr: Dr. Angelo Sinclair, DO Status: REG CLI Ordering Dr: Angelo Sinclair DO Date: 10/11/24 Location: [facility] Sex: M C Admitted: Reason For Study [...] Dictated: 10/11/24 1507 Date Transcribed: 10/11/24 1604 Assembling Machine Operator: Signed [facility] Work Phone: Cardiology Visit Reporton Cardiology Visit Report [facility] [address] [place] [address] OFFICE VISIT Date of Service: 09/23/24 MR#: [id number] Acct: [id number] Name: MELISSA CAROLINA Rep #: [id number] : 1965 Provider: Dr. Selam Mark MD Age/Sex: 58/M [place] [facility] [place] Status: Signed HPI HPI History [...] Coronary atherosclerosi (more content not included)... Normal [facility] CBC W/Diff, Automatedon 12-0 Absolute Lymph 2.31 X10 3/uL Normal 0.83-4.51 [facility] Comment on above: Performed By: #### L 501.9910, L500.4050, L502.0250, L100.0100, L500.4100, L501.9985 #### [facility] [address] [place], [address] Absolute Neut 5.5 X10 3/uL Normal 2.0-7.7 [facility] Comment on above: Performed By: #### L 501.9910, L500.4050, L502.0250, L100.0100, L500.4100, L501.9985 #### [facility] [address] [place], [address] Basophils/100 WBC (Bld) 0.7 % Normal 0-1 [facility] Comment on above: Performed By: #### L 501.9910, L500.4050, L502.0250, L100.0100, L500.4100, L501.9985 #### [facility] [address] [place], [address] Eosinophils/100 WBC (Bld) 1.3 % Normal 0-5 [facility] Comment on above: Performed By: #### L 501.9910, L500.4050, L502.0250, L100.0100, L500.4100, L501.9985 #### [facility] [address] [place], [address] Erythrocyte distribution width (RBC) [Ratio] 13.5 % Normal 11.6-14.6 [facility] Comment on above: Performed By: #### L 501.9910, L500.4050, L502.0250, L100.0100, L500.4100, L501.9985 #### [facility] [address] [place], [address] Hematocrit (Bld) [Volume fraction] 46.9 % Normal 40-54 [facility] Comment on above: Performed By: #### L 501.9910, L500.4050, L502.0250, L100.0100, L500.4100, L501.9985 #### [facility] [address] [place], [address] Hemoglobin (Bld) [Mass/Vol] 15.2 g/dL Normal 13.0-16.5 [facility] Comment on above: Performed By: #### L 501.9910, L500.4050, L502.0250, L100.0100, L500.4100, L501.9985 #### [facility] [address] [place], [address] IG% 0.400 Normal 0.0-0.9 [facility] Comment on above: Result Comment: IG% - Immature Granulocytes (promyelocytes, myelocytes and metamyelocytes) > 1% indicates that a LEFT SHIFT is Present. Performed By: #### L 501.9910, L500.4050, L502.0250, L100.0100, L500.4100, L501.9985 #### [facility] [address] [facility] [place], [address] Lymphocytes/100 WBC (Bld) 25.2 % Normal 19-41 [facility] Comment on above: Performed By: #### L 501.9910, L500.4050, L502.0250, L100.0100, L500.4100, L501.9985 #### [facility] [address] [place], [address] MCH (RBC) [Entitic mass] 29.9 pg Normal 27.0-32.0 [facility] Comment on above: Performed By: #### L 501.9910, L500.4050, L502.0250, L100.0100, L500.4100, L501.9985 #### [facility] [address] [place] [place], [address] MCHC (RBC) [Mass/Vol] 32.4 g/dL Normal 32-36 [facility] Comment on above: Performed By: #### L 501.9910, L500.4050, L502.0250, L100.0100, L500.4100, L501.9985 #### [facility] [address] [place], [address] MCV (RBC) [Entitic vol] 92.3 fL Normal 80-94 [facility] Comment on above: Performed By: #### L 501.9910, L500.4050, L502.0250, L100.0100, L500.4100, L501.9985 #### [facility] [address] [place] [place], [address] Monocytes/100 WBC (Bld) 12.1 % High 0-10 [facility] Comment on above: Performed By: #### L 501.9910, L500.4050, L502.0250, L100.0100, L500.4100, L501.9985 #### [facility] [address] [place] [place], [address] Neutrophils/100 WBC (Bld) 60.3 % Normal 47-70 [facility] Comment on above: Performed By: #### L 501.9910, L500.4050, L502.0250, L100.0100, L500.4100, L501.9985 #### [facility] [address] [place], [address] Nucleated RBC (Bld) [#/Vol] 0 10*3/uL Normal 0-5 [facility] Comment on above: Performed By: #### L 501.9910, L500.4050, L502.0250, L100.0100, L500.4100, L501.9985 #### [facility] [address] [place], [address] Platelet mean volume (Bld) [Entitic vol] 11.3 fL Normal 6.2-12.0 [facility] Comment on above: Performed By: #### L 501.9910, L500.4050, L502.0250, L100.0100, L500.4100, L501.9985 #### [facility] [address] [place] [place], [address] Platelets (Bld) [#/Vol] 200 10*3/uL Normal 150-450 [facility] Comment on above: Performed By: #### L 501.9910, L500.4050, L502.0250, L100.0100, L500.4100, L501.9985 #### [facility] [address] [facility] [place], [address] RBC (Bld) [#/Vol] 5.08 10*6/uL Normal 4.6-6.2 [facility] Comment on above: Performed By: #### L 501.9910, L500.4050, L502.0250, L100.0100, L500.4100, L501.9985 #### [facility] [address] [place], [address] RDW SD 46.1 fl High 35.1-43.9 [facility] Comment on above: Performed By: #### L 501.9910, L500.4050, L502.0250, L100.0100, L500.4100, L501.9985 #### [facility] [address] [place], [address] WBC (Bld) [#/Vol] 9.2 10*3/uL Normal 4.4-11.0 [facility] Comment on above: Performed By: #### L 501.9910, L500.4050, L502.0250, L100.0100, L500.4100, L501.9985 #### [facility] [address] [place], [address] Comprehensive Metabolic Prof ilon 02-23-2024 Albumin [Mass/Vol] 3.6 g/dL Normal 3.2-5.0 [facility] Comment on above: Performed By: #### L 501.9910, L500.4050, L502.0250, L100.0100, L500.4100, L501.9985 #### [facility] [address] [place], [address] Albumin/Globulin [Mass ratio] 0.8 {ratio} Low 0.9-2.4 [facility] Comment on above: Performed By: #### L 501.9910, L500.4050, L502.0250, L100.0100, L500.4100, L501.9985 #### [facility] [address] [place], [address] ALK P 102 U/L Normal 45-117 [facility] Comment on above: Performed By: #### L 501.9910, L500.4050, L502.0250, L100.0100, L500.4100, L501.9985 #### [facility] [address] [place], [address] ALT [Catalytic activity/Vol] 49 U/L Normal 16-61 [facility] Comment on above: Performed By: #### L 501.9910, L500.4050, L502.0250, L100.0100, L500.4100, L501.9985 #### [facility] [address] [place], [address] AST [Catalytic activity/Vol] 31 U/L Normal 15-37 [facility] Comment on above: Performed By: #### L 501.9910, L500.4050, L502.0250, L100.0100, L500.4100, L501.9985 #### [facility] [address] [place], [address] Bilirubin [Mass/Vol] 0.50 mg/dL Normal 0.20-1.00 [facility] Comment on above: Result Comment: For patients on eltrombopag therapy, use of Dimension [place] TBIL is not recommended. Performed By: #### L 501.9910, L500.4050, L502.0250, L100.0100, L500.4100, L501.9985 #### [facility] [address] [place], [address] BUN/CRE 16.0 RATIO Normal 10-20 [facility] Comment on above: Performed By: #### L 501.9910, L500.4050, L502.0250, L100.0100, L500.4100, L501.9985 #### [facility] [address] [place], [address] CA,Total 9.9 mg/dL Normal 8.5-10.1 [facility] Comment on above: Performed By: #### L 501.9910, L500.4050, L502.0250, L100.0100, L500.4100, L501.9985 #### [facility] [address] [place], [address] Chloride [Moles/Vol] 101 mmol/L Normal 98-107 [facility] Comment on above: Performed By: #### L 501.9910, L500.4050, L502.0250, L100.0100, L500.4100, L501.9985 #### [facility] [address] [place], [address] CO2 [Moles/Vol] 29.0 mmol/L Normal 21.0-32.0 [facility] Comment on above: Performed By: #### L 501.9910, L500.4050, L502.0250, L100.0100, L500.4100, L501.9985 #### [facility] [address] [place], [address] Creatinine [Mass/Vol] 0.94 mg/dL Normal 0.70-1.30 [facility] Comment on above: Result Comment: The validity of the calculated GFR GFRAA in patients over 70 years has not been determined. Clinical correlation is essential. Performed By: #### L 501.9910, L500.4050, L502.0250, L100.0100, L500.4100, L501.9985 #### [facility] [address] [place], [address] EST GFR - AA 106 mL/min Normal >60 [facility] Comment on above: Result Comment: Afri can Spanish GFR Calc Performed By: #### L 501.9910, L500.4050, L502.0250, L100.0100, L500.4100, L501.9985 #### [facility] [address] [place], [address] GAP 7 Normal 5-15 [facility] Comment on above: Performed By: #### L 501.9910, L500.4050, L502.0250, L100.0100, L500.4100, L501.9985 #### [facility] [address] [place], [address] GFR/1.73 sq M.predicted among non-blacks MDRD (S/P/Bld) [Vol rate/Area] 87 mL/min/{1.73_m2} Normal >60 [facility] Comment on above: Result Comment: Non- GFR Calc Performed By: #### L 501.9910, L500.4050, L502.0250, L100.0100, L500.4100, L501.9985 #### [facility] [address] [place], [address] Globulin (S) [Mass/Vol] 4.4 g/dL High 2.2-4.2 [facility] Comment on above: Performed By: #### L 501.9910, L500.4050, L502.0250, L100.0100, L500.4100, L501.9985 #### [facility] [address] [place], [address] Glucose [Mass/Vol] 124 mg/dL High 74-106 [facility] Comment on above: Result Comment: Fast ing Glucose result from 100 to 125 mg/dL suggests IMPAIRED HOMEOSTASIS per A.D.A. criteria. Performed By: #### L 501.9910, L500.4050, L502.0250, L100.0100, L500.4100, L501.9985 #### [facility] [address] [place], [address] Potassium [Moles/Vol] 4.2 mmol/L Normal 3.5-5.1 [facility] Comment on above: Performed By: #### L 501.9910, L500.4050, L502.0250, L100.0100, L500.4100, L501.9985 #### [facility] [address] [place], [address] Sodium [Moles/Vol] 137 mmol/L Normal 136-145 [facility] Comment on above: Performed By: #### L 501.9910, L500.4050, L502.0250, L100.0100, L500.4100, L501.9985 #### [facility] [address] [place], [address] T PROT 8.0 g/dL Normal 6.4-8.2 [facility] Comment on above: Performed By: #### L 501.9910, L500.4050, L502.0250, L100.0100, L500.4100, L501.9985 #### [facility] [address] [place], [address] Urea nitrogen [Mass/Vol] 15 mg/dL Normal 7-18 [facility] Comment on above: Performed By: #### L 501.9910, L500.4050, L502.0250, L100.0100, L500.4100, L501.9985 #### [facility] [address] [place], [address] Hemoglobin A1con 02-23-2024 HbA1c (Bld) [Mass fraction] 6.0 % High 3.8-5.6 [facility] Comment on above: Result Comment: Norm al < 5.7 % Prediabetic 5.7 - 6.4 % Diabetic >or= 6.5 % Please note range changes. Performed By: #### L 501.9910, L500.4050, L502.0250, L100.0100, L500.4100, L501.9985 #### [facility] [address] [place], [address] Lipid Profileon 02-23-2024 Cholesterol [Mass/Vol] 149 mg/dL Normal 200 [facility] Comment on above: Result Comment: <200 mg/dL Desirable 200-240 mg/dL Borderline >240 mg/dL High Risk Performed By: #### L 501.9910, L500.4050, L502.0250, L100.0100, L500.4100, L501.9985 #### [facility] [address] [place], [address] Cholesterol in HDL [Mass/Vol] 47 mg/dL Normal [facility] Comment on above: Result Comment: The drugs N-Acetylcysteine and Metamizole may falsely depress this assay. Reference Range HDL <40 mg/dL Low HDL Cholesterol HDL >or= 60 mg/dL High HDL Cholesterol Performed By: #### L 501.9910, L500.4050, L502.0250, L100.0100, L500.4100, L501.9985 #### [facility] [address] [place], [address] Cholesterol in LDL [Mass/Vol] 63 mg/dL Normal 0-130 [facility] Comment on above: Performed By: #### L 501.9910, L500.4050, L502.0250, L100.0100, L500.4100, L501.9985 #### [facility] [address] [place], [address] Cholesterol in VLDL [Mass/Vol] 39 mg/dL Normal 5-40 [facility] Comment on above: Performed By: #### L 501.9910, L500.4050, L502.0250, L100.0100, L500.4100, L501.9985 #### [facility] [address] [place], [address] Triglyceride [Mass/Vol] 194 mg/dL Normal [facility] Comment on above: Result Comment: The drugs N-Acetylcysteine and Metamizole may falsely depress this assay. Serum Triglycerides Reference Interval Normal <150 mg/dL Borderline high 150 - 199 mg/dL High 200 - 499 mg/dL Very High > or = 500 mg/dL Performed By: #### L 501.9910, L500.4050, L502.0250, L100.0100, L500.4100, L501.9985 #### [facility] [address] [place], [address] Microalb:Creat Ratio,Random URon 02-23-2024 Creatinine [Mass/Vol] 284.00 mg/dL Normal NO RANGE EST . [facility] Comment on above: Performed By: #### L 501.9910, L500.4050, L502.0250, L100.0100, L500.4100, L501.9985 #### [facility] [address] [place], [address] MALB:CRE 443.7 mg/g CRE High <30 mg/g CRE [facility] Comment on above: Performed By: #### L 501.9910, L500.4050, L502.0250, L100.0100, L500.4100, L501.9985 #### [facility] [address] [place], [address] MICROALBUMIN,UR 1260.0 mg/L Normal NO RANGE EST. [facility] Comment on above: Performed By: #### L 501.9910, L500.4050, L502.0250, L100.0100, L500.4100, L501.9985 #### [facility] [address] [place], [address] PSA,Total - Annual Screenon 02-23-2024 PSA,TOT SCREEN 0.81 ng/mL Normal 0.00-4.00 [facility] Comment on above: Result Comment: This test was performed using the TPSA assay method for the [employer] chemistry system. Values obtained with different assay methods cannot be used interchangably. When changing PSA assays in the course of monitoring a patient, additional sequential testing should be carried out to confirm baseline values. Performed By: #### L 501.9910, L500.4050, L502.0250, L100.0100, L500.4100, L501.9985 #### [facility] [address] [place], [address] Basophil percentageOrdered B y: Angelo Sinclair on 02-17-2023 Bilirubin [Mass/Vol] 0.30 mg/dL 0.20-1.00 [facility] Comment on above: For patients on eltr ombopag therapy, use of Dimension [place] TBIL is not recommended. Chloride [Moles/Vol] 99 mmol/L 98-107 [facility] Cholesterol [Mass/Vol] 139 mg/dL <200 [facility] Comment on above: <200 mg/dL Desirable 200-240 mg/dL Borderline >240 mg/dL High Risk Glucose [Mass/Vol] 122 mg/dL 74-106 [facility] Comment on above: Fasting Glucose resu lt from 100 to 125 mg/dL suggests IMPAIRED HOMEOSTASIS per A.D.A. criteria. Potassium [Moles/Vol] 3.9 mmol/L 3.5-5.1 [facility] Protein [Mass/Vol] 8.0 g/dL 6.4-8.2 [facility] Sodium [Moles/Vol] 134 mmol/L 136-145 [facility] Triglyceride [Mass/Vol] 175 mg/dL <199 [facility] Comment on above: The drugs N-Acetylcy steine and Metamizole may falsely depress this assay.Serum Triglycerides Reference Interval Normal <150 mg/dL Borderline high 150 - 199 mg/dL High 200 - 499 mg/dL Very High > or = 500 mg/dL Laboratory - Chemistry and C hemistry - challengeOrdered By: Angelo Sinclair on 02-17-2023 ALP [Catalytic activity/Vol] 104 U/L 45-117 [facility] ALT [Catalytic activity/Vol] 48 U/L 16-61 [facility] CO2 [Moles/Vol] 27.0 mmol/L 21.0-32.0 [facility] Globulin (S) [Mass/Vol] 4.3 g/dL 2.2-4.2 [facility] Urea nitrogen/Creatinine [Mass ratio] 22.2 mg/mg 10-20 [facility] No Panel InformationOrdered By: Angelo Sinclair on 02-17-2023 Estimated GFR (MDRD) Amer 90 mL/min >60 [facility] Comment on above: GFR Calc Estimated GFR (MDRD) Non-Af Amer 74 mL/min >60 [facility] Comment on above: Non- GFR Calc Prostate Specific Antigen Screen 0.81 ng/mL 0.00-4.00 [facility] Comment on above: This test was perfor med using the TPSA assay method for the[facility] chemistry system. Values obtained with differentassay methods cannot be used interchangably.When changing PSA assays in the course of monitoring apatient, additional sequential testing should be carriedout to confirm baseline values. Urine Microalbumin/Creatinine Ratio 15.5 mg/g CRE <30 [facility] Serum or plasma albumin estefania urement (mass/volume)Ordered By: Angelo Sinclair on 02-17-2023 Albumin [Mass/Vol] 3.7 g/dL 3.2-5.0 [facility] Serum or plasma albumin/glob ulin mass ratioOrdered By: Angelo Sinclair on 02-17-2023 Albumin/Globulin [Mass ratio] 0.9 {ratio} 0.9-2.4 [facility] Serum or plasma calcium estefania urement (mass/volume)Ordered By: Angelo Sinclair on 02-17-2023 Calcium [Mass/Vol] 8.8 mg/dL 8.5-10.1 [facility] Serum or plasma cholesterol in HDL measurement (mass/volume)Ordered By: Angelo Sinclair on 02-17-2023 Cholesterol in HDL [Mass/Vol] 39 mg/dL >40 [facility] Comment on above: The drugs N-Acetylcy steine and Metamizole may falsely depress this assay. Reference Range HDL <40 mg/dL Low HDL Cholesterol HDL >or= 60 mg/dL High HDL Cholesterol Serum or plasma cholesterol in VLDL measurement (mass/volume)Ordered By: Angelo Sinclair on 02-17-2023 Cholesterol in VLDL [Mass/Vol] 35 mg/dL 5-40 [facility] Serum or plasma creatinine m easurement (mass/volume)Ordered By: Angelo Sinclair on 02-17-2023 Creatinine [Mass/Vol] 1.08 mg/dL 0.70-1.30 [facility] Comment on above: The validity of the calculated GFR & GFRAA in patients over 70 years has not been determined. Clinical correlation is essential. Serum or plasma low density lipoprotein (LDL) cholesterol measurement (mass/volume)Ordered By: Angelo Sinclair on 02-17-2023 Cholesterol in LDL [Mass/Vol] 65 mg/dL 0-130 [facility] Serum or plasma urea nitroge n measurement (mass/volume)Ordered By: Angelo Sinclair on 02-17-2023 Urea nitrogen [Mass/Vol] 24 mg/dL 7-18 [facility] Thin prep Papanicolaou smear with manual screeningOrdered By: Angelo Sinclair on 02-17-2023 Thin prep Papanicolaou smear with manual screening 22 U/L 15-37 [facility] Thin prep Papanicolaou smear with manual screening 8 5-15 [facility] Thin prep Papanicolaou smear with manual screening 24.0 mg/L NO RANGE EST. [facility] Urine creatinine measurement (mass/volume)Ordered By: Angelo Sinclair on 02-17-2023 Creatinine (U) [Mass/Vol] 155.00 mg/dL NO RANGE EST. [facility] Whole blood hemoglobin A1c/t otal hemoglobin ratio (mass fraction)Ordered By: Angelo Sinclair on 02-17-2023 HbA1c (Bld) [Mass fraction] 6.0 % 3.8-5.6 [facility] Comment on above: Normal < 5.7 % Predi abetic 5.7 - 6.4 % Diabetic >or= 6.5 % Please note range changes. Absolute lymphocyte counton 01-10-2022 Lymphocytes Auto (Unsp spec) [#/Vol] 2.21 10*3/uL 0.83-4.51 [facility] Work Phone: Basophil percentageon 2021 Basophils/100 WBC (Bld) 0.8 % 0-1 [facility] Work Phone: Bilirubin [Mass/Vol] 0.40 mg/dL 0.20-1.00 [facility] Work Phone: Comment on above: For patients on eltr ombopag therapy, use of Dimension [place] TBIL is not recommended. Chloride [Moles/Vol] 100 mmol/L 98-107 [facility] Work Phone: Cholesterol [Mass/Vol] 268 mg/dL <200 [facility] Work Phone: Comment on above: <200 mg/dL Desirable 200-240 mg/dL Borderline >240 mg/dL High Risk Eosinophils/100 WBC (Bld) 2.7 % 0-5 [facility] Work Phone: Glucose [Mass/Vol] 178 mg/dL 74-106 [facility] Work Phone: Comment on above: Fasting Glucose resu lt greater than or equal to 126 mg/dL suggests DIABETES MELLITUS per A.D.A. criteria. Neutrophils (Bld) [#/Vol] 5.0 10*3/uL 2.0-7.7 [facility] Work Phone: Neutrophils/100 WBC (Bld) 58.8 % 47-70 [facility] Work Phone: Potassium [Moles/Vol] 4.3 mmol/L 3.5-5.1 [facility] Work Phone: Protein [Mass/Vol] 7.7 g/dL 6.4-8.2 [facility] Work Phone: Sodium [Moles/Vol] 134 mmol/L 136-145 [facility] Work Phone: Triglyceride [Mass/Vol] 343 mg/dL <199 [facility] Work Phone: Comment on above: The drugs N-Acetylcy steine and Metamizole may falsely depress this assay.Serum Triglycerides Reference Interval Normal <150 mg/dL Borderline high 150 - 199 mg/dL High 200 - 499 mg/dL Very High > or = 500 mg/dL WBC (Bld) [#/Vol] 8.5 10*3/uL 4.4-11.0 [facility] Work Phone: Blood erythrocytes count (nu mber/volume)on 01-10-2022 RBC (Bld) [#/Vol] 4.97 10*6/uL 4.6-6.2 [facility] Work Phone: Blood hemoglobin measurement (mass/volume)on 01-10-2022 Hemoglobin (Bld) [Mass/Vol] 16.1 g/dL 13.0-16.5 [facility] Work Phone: Blood lymphocytes/100 leukoc yteson 01-10-2022 Lymphocytes/100 WBC (Bld) 26.1 % 19-41 [facility] Work Phone: Blood monocytes/100 leukocyt eson 01-10-2022 Monocytes/100 WBC (Bld) 11.1 % 0-10 [facility] Work Phone: Blood platelet mean volumeon 01-10-2022 Platelet mean volume (Bld) [Entitic vol] 12.4 fL 6.2-12.0 [facility] Work Phone: Determination of erythrocyte mean corpuscular volume (MCV)on 01-10-2022 MCV (RBC) [Entitic vol] 95.0 fL 80-94 [facility] Work Phone: Hematocrit Auto (Bld) [Volum e fraction]on 01-10-2022 Hematocrit (Bld) [Volume fraction] 47.2 % 40-54 [facility] Work Phone: [phone] Laboratory - Chemistry and C hemistry - challengeon 01-10-2022 ALP [Catalytic activity/Vol] 96 U/L 45-117 [facility] Work Phone: ALT [Catalytic activity/Vol] 46 U/L 16-61 [facility] Work Phone: CO2 [Moles/Vol] 27.0 mmol/L 21.0-32.0 [facility] Work Phone: Globulin (S) [Mass/Vol] 4.4 g/dL 2.2-4.2 [facility] Work Phone: Urea nitrogen/Creatinine [Mass ratio] 12.8 mg/mg 10-20 [facility] Work Phone: Laboratory - Hematology and Cell countson 01-10-2022 Erythrocyte distribution width (RBC) [Entitic vol] 46.0 fL 35.1-43.9 [facility] Work Phone: Erythrocyte distribution width (RBC) [Ratio] 13.2 % 11.6-14.6 [facility] Work Phone: Immature granulocytes/100 WBC (Bld) 0.500 % 0.0-0.9 [facility] Work Phone: Comment on above: IG% - Immature Granu locytes (promyelocytes, myelocytes and metamyelocytes) > 1% indicates that a LEFT SHIFT is Present. MCH (RBC) [Entitic mass] 32.4 pg 27.0-32.0 [facility] Work Phone: Nucleated RBC/100 WBC (Bld) [Ratio] 0 % 0-5 [facility] Work Phone: MCHC Auto (RBC) [Mass/Vol]on 01-10-2022 MCHC (RBC) [Mass/Vol] 34.1 g/dL 32-36 [facility] Work Phone: No Panel Informationon 01-10 Estimated GFR (MDRD) Amer 82 mL/min >60 [facility] Work Phone: Comment on above: GFR Calc Estimated GFR (MDRD) Non-Af Amer 68 mL/min >60 [facility] Work Phone: Comment on above: Non- GFR Calc Prostate Specific Antigen Screen 0.75 ng/mL 0.00-4.00 [facility] Work Phone: Comment on above: This test was perfor med using the TPSA assay method for [employer] chemistry system. Values obtained with differentassay methods cannot be used interchangably.When changing PSA assays in the course of monitoring apatient, additional sequential testing should be carriedout to confirm baseline values. Platelets bldon 01-10-2022 Platelets (Bld) [#/Vol] 201 10*3/uL 150-450 [facility] Work Phone: Serum or plasma albumin estefania urement (mass/volume)on 01-10-2022 Albumin [Mass/Vol] 3.3 g/dL 3.2-5.0 [facility] Work Phone: Serum or plasma albumin/glob ulin mass ratioon 01-10-2022 Albumin/Globulin [Mass ratio] 0.8 {ratio} 0.9-2.4 [facility] Work Phone: Serum or plasma calcium estefania urement (mass/volume)on 01-10-2022 Calcium [Mass/Vol] 9.1 mg/dL 8.5-10.1 [facility] Work Phone: Serum or plasma cholesterol in HDL measurement (mass/volume)on 01-10-2022 Cholesterol in HDL [Mass/Vol] 36 mg/dL >40 [facility] Work Phone: Comment on above: The drugs N-Acetylcy steine and Metamizole may falsely depress this assay. Reference Range HDL <40 mg/dL Low HDL Cholesterol HDL >or= 60 mg/dL High HDL Cholesterol Serum or plasma cholesterol in VLDL measurement (mass/volume)on 01-10-2022 Cholesterol in VLDL [Mass/Vol] 69 mg/dL 5-40 [facility] Work Phone: Serum or plasma creatinine m easurement (mass/volume)on 01-10-2022 Creatinine [Mass/Vol] 1.17 mg/dL 0.70-1.30 [facility] Work Phone: Comment on above: The validity of the calculated GFR & GFRAA in patients over 70 years has not been determined. Clinical correlation is essential. Serum or plasma low density lipoprotein (LDL) cholesterol measurement (mass/volume)on 01-10-2022 Cholesterol in LDL [Mass/Vol] 163 mg/dL 0-130 [facility] Work Phone: Serum or plasma urea nitroge n measurement (mass/volume)on 01-10-2022 Urea nitrogen [Mass/Vol] 15 mg/dL 7-18 [facility] Work Phone: Thin prep Papanicolaou smear with manual screeningon 01-10-2022 Thin prep Papanicolaou smear with manual screening 21 U/L 15-37 [facility] Work Phone: Thin prep Papanicolaou smear with manual screening 7 5-15 [facility] Work Phone: Whole blood hemoglobin A1c/t otal hemoglobin ratio (mass fraction)on 01-10-2022 HbA1c (Bld) [Mass fraction] 8.2 % 3.8-5.6 [facility] Work Phone: Comment on above: Normal < 5.7 % Predi abetic 5.7 - 6.4 % Diabetic >or= 6.5 % Please note range changes. Vital Signs Date Time Vital Sign Value Performing Clinician Facility 12-07-2024 10:09-0400 Body height 175 cm Chance Mitan PA-C Work Phone: [facility] 12-07-2024 10:09-0400 Body height 175.26 cm Chance Mitan PA-C Work Phone: [facility] 12-07-2024 10:09-0400 Body mass index (BMI) [Ratio] 37.05 kg/m2 Chance Mitan PA-C Work Phone: [facility] 12-07-2024 10:09-0400 Body weight 114 kg Chance Mitan PA-C Work Phone: [facility] 12-07-2024 10:09-0400 Body weight 113.4 kg Chance Mitan PA-C Work Phone: [facility] 12-07-2024 10:09-0400 BP SITE #1 Chance Mitan PA-C Work Phone: [facility] 12-07-2024 10:09-0400 Diastolic blood pressure 72 mm[Hg] Chance Mitan PA-C Work Phone: [facility] 12-07-2024 10:09-0400 Heart rate 69 /min Chance Mitan PA-C Work Phone: [facility] 12-07-2024 10:09-0400 HGHTCHNVIS Chance Mitan PA-C Work Phone: [facility] 12-07-2024 10:09-0400 Systolic blood pressure 102 mm[Hg] Chance Mitan PA-C Work Phone: [facility] 12-07-2024 10:09-0400 VITALSDONE Chance Mitan PA-C Work Phone: [facility] 09-23-2024 10:38-0400 Body height 175.[address] Angelo Sinclair DO Work Phone: [facility] 04-10-2022 08:23-0500 Body height 175.[address] Angelo Sinclair Work Phone: [facility] 04-10-2022 08:23-0500 Body mass index (BMI) [Ratio] 38.9 kg/m2 Dr. Angelo Sinclair Work Phone: [facility] 04-10-2022 08:23-0500 Body temperature 98.4 [degF] Dr. Angelo Sinclair Work Phone: [facility] 04-10-2022 08:23-0500 Body weight 119.[address] Angelo Sinclair Work Phone: [facility] 04-10-2022 08:23-0500 Diastolic blood pressure 94 mm[Hg] Dr. Angelo Sinclair Work Phone: [facility] 04-10-2022 08:23-0500 Diastolic blood pressure 74 mm[Hg] Dr. Angelo Sinclair DO Work Phone: [facility] 04-10-2022 08:23-0500 Heart rate 120 /min Dr. Angelo Sinclair Work Phone: [facility] 04-10-2022 08:23-0500 Heart rate 71 /min Dr. Angelo Sinclair DO Work Phone: [facility] 04-10-2022 08:23-0500 Respiratory rate 18 /min Dr. Angelo Sinclair DO Work Phone: [facility] 04-10-2022 08:23-0500 SaO2% (BldA) [Mass fraction] 96 % Dr. Angelo Sinclair Work Phone: [facility] 04-10-2022 08:23-0500 Systolic blood pressure 138 mm[Hg] Dr. Angelo Sinclair Work Phone: [facility] 04-10-2022 08:23-0500 Systolic blood pressure 105 mm[Hg] Dr. Angelo Sinclair DO Work Phone: [facility] Encounters Encounter Date Encounter Type Care Provider Facility Start: 02-15-2025 ambulatory [facility] Facility: [facility] Start: 01-27-2025 ambulatory [facility] Facility: [facility] Start: 01-20-2025 ambulatory [facility]o [facility] Facility: [facility] Start: 01-19-2025 ambulatory [facility] Facility:[facility] Start: 01-19-2025 ambulatory Selam Jas Facility:[facility] Start: 12-07-2024 In-person encounter Tim harris PA-C Work Phone: [facility] Work Phone: Start: 12-07-2024 Visit out of hours Tim griggs PA-C Work Phone: [employer] [facility] Work Phone: Start: 10-11-2024 Non-patient / Non-visit Dr. Samuel MOSLEY -[facility] Start: 10-11-2024 End: 10-11-[address] Angelo Sinclair DO Work Phone: -[facility] Start: 10-11-2024 End: 10-11-[address] Angelo Sinclair DO -[facility] Work Phone: Start: 10-11-2024 End: 10-11-2024 ambulatory Sel[facility] Facility:[facility] Start: 09-23-2024 End: 09-23-[address] Selam Mark MD -[facility] Work Phone: Start: 09-23-2024 End: 09-23-[address] Angelo Sinclair DO Work Phone: -[facility] Start: 03-25-2024 Encounter for genera l adult medical examination without abnormal findings [place] Start: 02-23-2024 End: 02-23-2024 ambulatory Angelo Sinclair Facility:[facility] Start: 02-17-2023 End: 02-17-[address] [facility] Work Phone: Start: 02-17-2023 End: 02-17-[address] [facility], [facility] Start: 05-08-2022 End: 05-08-[address] Angelo Sinclair Work Phone: [facility] Work Phone: Start: 05-08-2022 End: 05-08-[address] Angelo Sinclair Work Phone: [facility]-Cat Scan, [facility] Start: 04-10-2022 End: 04-10-[address] Angelo Sinclair Work Phone: [facility]-Pulmonary Medicine [facility] Start: 03-06-2022 End: 03-06-[address] [facility] Work Phone: Start: 03-06-2022 End: 03-06-[address] [facility] Start: 02-21-2022 End: 02-21-[address] [facility] Work Phone: Start: 02-21-2022 End: 02-21-[address] [facility] Start: 01-10-2022 End: 01-10-[address] [facility], [facility] Procedures Date Procedure Procedure Detail Performing Clinician Start: 12-07-2024 Blood pressure withi n normal parameters - no follow-up required Tim GRACIA[facility] Work Phone: Start: 12-07-2024 Osteoarthritis symptoms&funcjal status [...] Activity Detail Author Start: 12-07-2024 End: 12-07-2024 [employer] Work Phone: Start: 12-07-2024 Radiologic examinati on knee 3 views [facility] Work Phone: Start: 09-23-2024 Evaluation of diagno stic study results [facility] Complete blood count [facility] Comprehensive metabo lic 1999 panel - Serum or Plasma [facility] Lipid 1996 panel - S mayela or Plasma [facility] NM Heart Views W str ess and W radionuclide IV [facility] Thyroid stimulating hormone measurement [facility] Immunizations Immunization Date Immunization Notes Care Provider Licha montes 04-11-2020 Covid (Moderna) [facility] 03-14-2020 Covid (Moderna) [facility] 02-07-2020 influenza, injectabl e, quadrivalent, preservative free [facility] 02-07-2020 influenza, seasonal, injectable [facility] 02-08-2019 influenza, injectabl e, quadrivalent, preservative free [facility] 02-08-2019 influenza, seasonal, injectable [facility] 02-12-2018 influenza, injectabl e, quadrivalent, preservative free [facility] 02-12-2018 influenza, seasonal, injectable [facility] 02-12-2017 influenza, injectabl e, quadrivalent, preservative free [facility] 02-12-2017 influenza, seasonal, injectable [facility] 12-15-2015 influenza, injectabl e, quadrivalent, preservative free [facility] 12-15-2015 influenza, seasonal, injectable [facility] 12-15-2014 influenza, injectabl e, quadrivalent, preservative free [facility] 12-15-2014 influenza, seasonal, injectable [facility] 12-09-2013 influenza, injectabl e, quadrivalent, preservative free [facility] 12-09-2013 influenza, seasonal, injectable [facility] 03-25-2013 Influenza virus vaccine [facility] Payers Date Payer Category Payer Unknown [id number] 2024 Self-pay [id number] 2023 Unknown [id number] Unknown [id number] Unknown [id number] 2.16.8 [id number] Unknown [id number] 2.16.8 [id number] Unknown [id number] 2.16.8 [id number] Unknown [id number] 2.16.8 [id number] Unknown [id number] 2.16.8 [id number] Unknown [id number] 2.16.8 [id number] Unknown [id number] 2.16.8 [id number] Unknown [id number] 2.16.8 [id number] Unknown [id number] 2.16.8 [id number] Social History Date Type Detail Facility Start: 12-27-2019 End: 04-10-2022 Tobacco smoking status NHIS Unknown if ever smoked [facility] Start: 12-10-2019 Cigarettes [facility] Start: 1965 Sex Assigned At Male [facility] Start: 04-10-2022 Tobacco smoking stat us NHIS Smokes tobacco daily (finding) [facility] Start: 12-07-2024 social history revie wed E[employer]M Done [employer] Work Phone: Start: 12-07-2024 smoking/tobacco cessation, patient education and counseling Smoking cessation education (procedure) [employer] Work Phone: Medical Equipment Procedure Code Equipment [...] [employer] Work Phone: 12-07-2024 dependent [employer] Work Phone: Evaluation note 09-23-2024 Note [...] sleep apnea) chronic September 23, 2024 10:28am [facility] Work Phone: Evaluation note Note Date & Type Note Facility Evaluation note No assessment information availa ble [facility] Work Phone: Evaluation note Note Date & Type Note Facility Evaluation note Diagnosis Onset Date BMI 38.0-38.9,adult acute TRAN (obstructive sleep apnea) acute Smoking greater than 20 pack years [facility] Work Phone: Evaluation note Note Date [...] Essential hypertension chronic Ju ly 2024 10:28am [employer] Work Phone: Reason for referral (narrative) Note Date & Type Note Facility Reason for referral (narrative) No reason for referral information available [facility] Work Phone: Chief Complaint and Reason [...] No December 10, 2019 7:19am 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 Angelo Sinclair DO Primary Care Prov ider, Attending Provider, Referring Provider Active Team Status: Inactive Member Role Status Dates Dr. Angelo Sinclair DO Primary Care Provider Active Margarita Grider NUTRITION SPECIALIST, NUTRITION SPECIALIST-C Attending Provider, Referrin g Provider Active Team [...] section and content) DATE CREATED AUTHOR 01/26/2025 [facility] FOR RECORDS PERTAINING TO PATIENTS WHO ARE [...] BE BASED ON THE PRIMARY CLINICAL RECORDS. [employer] provides no warranty or guarantee of the accuracy or completeness of information in this document.
== END | disposition home or self-care (01) ==
LOC: SL 09:13
PROVIDERS: PCP Family Medicine; Referring Provider Family Medicine; Visit Provider Family Medicine
DX: Z46.89 Encounter for fitting and adjustment of other specified devices (principal)